=== PATIENT | female | born 1975 | race Caucasian/White ===

== ENCOUNTER 2019-02-28 09:45 | Outpatient (RCR) | payer OTHER, SELFPAY ==
--- NOTE | 2019-01-11 15:22 | PT.OIE ---
Current Diagnoses Pain in unspecified hip (01/10/19) Past Medical History (Last Updated 11/18/18 @ 16:55 by Ros Chase MD) Fibromyalgia (Chronic) GERD (gastroesophageal reflux disease) (Chronic) Past Surgical History (Last Updated 11/18/18 @ 16:55 by Ros Chase MD) History of third molar tooth extraction (Resolved) History of tonsillectomy (Resolved) Provider Visit Care Team Role Provider Type ALY Hector Primary Care Provider Advanced Manager Planning Specialty: Family Practice Address: [address] [place] [address] [place], [address] Email: [email or web address] ALY Bowser Attending Provider Advanced Manager Planning Specialty: Medical Address: [address] [place] [address], [id number] Email: Physical Therapy Initial Evaluation PT-OP-A Visit Information Start: 01/11/19 14:42 Freq: Status: Active Protocol: Document 01/10/19 14:30 [facility] (Rec: 01/11/19 15:17 [facility] [email or web address]) Out-Patient Physical Therapy Visit Information Visit Information Visit Type Initial Evaluation Visit Note 43 year old female with c/o a new onset of R lateral hip pain that began while running in July. Visit Start Time 14:30 Visit Stop Time 15:15 Total Visit Minutes 45 Visit Number 1 Evaluation Information Evaluation Date 01/10/19 PT-OP-B Current Condition Start: 01/11/19 14:42 Freq: Status: Active Protocol: Document 01/10/19 14:30 [facility] (Rec: 01/11/19 15:17 [facility] [email or web address]) Current Condition History of Current Condition Onset Date July 2018 Current Complaints Right sided pain in the lateral hip and pelvis rated 5 /10 History of Current Condition 43 year old female who started having right sided hip and lateral pelvis pain [place]. She reports running the full trail and then experiencing pain following. She then ran again the following week and it reaggravated her symptoms. She has experienced pain since this time. Her pain is rated 5/10 and it hurts to even lay on her right side. The pain doesn't ever go completely away and now even walking aggravates her symptoms Treatment Goals Patient/Caregiver Goals to decrease pain to be able to run again and walk without pain Current Functional Impairments (Reported) Functional Limitations- Recreation/ quite a bit of difficulty with Hobbies runnin, making sharp turns, hopping, rolloing over in bed moderate difficulty with walking a mile and performing heavy activities around her home PT-OP-F Manual Assessment Start: 01/11/19 14:42 Freq: Status: Active Protocol: Document 01/10/19 14:30 [facility] (Rec: 01/11/19 15:17 [facility] [email or web address]) Manual Assessments Soft Tissue Assessment Soft Tissue Mobility Assessment myofascial tightness in the right ITB and quadriceps on the right. PT-OP-J Posture/Palpation/Skin Start: 01/11/19 14:42 Freq: Status: Active Protocol: Document 01/10/19 14:30 [facility] (Rec: 01/11/19 15:17 [facility] [email or web address]) Posture Evaluation Position Standing Evaluation View Posterior Pelvis Posture (L) Iliac Crest Superior Weight Distribution Weight Shifted Left Palpation Assessment Location Three Palpation Location Right quadracep proximal attachment Palpation Findings Soft Tissue Tightness Muscle Guarding Tenderness Two Palpation Location R ITB Palpation Findings Soft Tissue Tightness Palpation Details Myofascial restrictions in the right ITB One Palpation Location right Gluteus medius Palpation Findings Tenderness Palpation Details reproduction of pain with palpation over the right gluteus medius PT-OP-K Range of Motion Start: 01/11/19 14:42 Freq: Status: Active Protocol: Document 01/10/19 14:30 [facility] (Rec: 01/11/19 15:17 [facility] [email or web address]) Hip Goniometric Range of Motion Hip Left Hip ROM WFL No Flexion w/Knee Flexed 110 Straight Leg Raise 60 Right Hip ROM WFL No Flexion w/Knee Flexed 95 Straight Leg Raise 55 Hip ROM Limitations Hip ROM Limitations Soft Tissue Tightness Comments right sided posterior hip capsule tightness, ITB tightness PT-OP-L Special Tests Start: 01/11/19 14:42 Freq: Status: Active Protocol: Document 01/10/19 14:30 [facility] (Rec: 01/11/19 15:17 [facility] [email or web address]) Special Tests Hip Special Tests Trendelenberg Test Results + trendelenberg on the right Comments difficulty with single leg stance on the right, increased pain and decreased balance PT-OP-M Strength Start: 01/11/19 14:42 Freq: Status: Active Protocol: Document 01/10/19 14:30 [facility] (Rec: 01/11/19 15:17 [facility] [email or web address]) Hip Strength Hip Manual Muscle Testing Left Extension (S1) 4+ Good+ Abduction 4 Good External Rotation 4 Good Comments weakness in the gluteus medius on the right Right Extension (S1) 4 Good Abduction 2+ Poor+ External Rotation 3 Fair PT-OP-Q Treatments Start: 01/11/19 14:42 Freq: Status: Active Protocol: Document 01/10/19 14:30 [facility] (Rec: 01/11/19 15:17 [facility] [email or web address]) Therapeutic Exercises Other Exercises 3 Other Exercise Name clam shell Side bilateral Equipment Used 2 x 10 2 Other Exercise Name standing and sidelying quad stretch Side bilateral Reps/Minutes 1-2 min each 1 Other Exercise Name supine ITB stretch with strap Side bilateral Reps/Minutes 1 min each x 2 Manual Therapy Treatment Soft Tissue Mobilization 1 Body Location right ITB Mobilization Type Myofascial Release Intensity/Depth Superficial Body Position Sidelying Comments pt educated in self massage with the stick self massage roller PT-OP-T Assessment and Plan Start: 01/11/19 14:42 Freq: Status: Active Protocol: Document 01/10/19 14:30 [facility] (Rec: 01/11/19 15:17 [facility] [email or web address]) Physical Therapy Assessment Rehab Potential Rehabilitation Potential Excellent Evaluation Complexity Number of Personal Factors/Comorbidities 0 Number of Body Systems Impaired 1-2 Clinical Presentation at Evaluation Stable Impairments Impairments Activity Tolerance Balance Functional Activities Gait Pain ROM Soft Tissue Mobility Strength Goals Four Impairment limited hip ROM into flexion, SLR Usp Goal (LTG) Improve mobility of the posterior hip capsule to improve hip flexion and improve SLR ROM to 70 degrees or better LTG Duration 8 weeks Three Impairment ITB and quad tightness on the right + BRYAN test Pack Worker Goal (LTG) Reduce tightness and over dominace of the ITB on the right with manual therapy techniques and home stretches. LTG Duration 8 weeks Two Impairment Right hip gluteus medius and hip ER weakness Usp Goal (LTG) Improve right gluteus medius and ER strength to 5/5 and Karla is able to balance in SLS without a hip drop on the right LTG Duration 8 weeks One Impairment right lateral hip pain rated 5 /10 worse with walking, unable to run Short Term Goal (STG) Reduce right hip pain at rest to 2-3 /10 STG Duration 4 weeks Usp Goal (LTG) Karla is able to return to running without a increase in hip pain LTG Duration 8 weeks Assessment Summary Assessment Karla is a 43 year old female who presents to PT today with right sided lateral hip/pelvis pain that began when she returned to running in July. She hadn't been running much before this but wanted to get back into shape. [place] and felt pain for several days following. She then did the trail again the next week and pain returned but has stayed with her. It now bothers her to walk and she rates her pain as 5/10. She reports her pain never completely goes away. It hurts to lay on her right side in bed at night. With examination today she is tender over the gluteus medius on the right lateral pelvis. She is weak in the gluteus medius and has a + trendelenburg on the right making single leg stance difficult to perform. Her ITB is over dominant and tight. There is posterior hip capsule tightness on the right and hip flexion is limited. She has pain with full ER and pigeon pose in yoga. I began today MFR over the ITB and Karla was instructed in a home stretching program for the ITB and quadriceps. Treatment will progress to gluteus medius strengthening, balance training on SLS and a return to running program. Karla is a good candidate for PT. Physical Therapy Plan Frequency and Duration Frequency of Treatment 2x/Week Duration of Treatment 8 weeks Plan of Care Start Date 01/10/19 Plan of Care End Date 03/07/19 Therapeutic Interventions Therapeutic Interventions Home Exercise Program Joint Mobilizations Manual Therapy Neuromuscular Re-education Soft Tissue Mobilization Therapeutic Exercises Modalities Cold Pack/Ice Massage Next Visit Focus/Plan Next Note Type Treatment Note Next Visit Plan continue to work on ITB release, progress lateral hip strength
--- NOTE | 2019-01-11 15:23 | PT.OPPOC ---
Current Diagnoses Pain in unspecified hip (01/10/19) Provider Visit Care Team Role Provider Type ALY Hector Primary Care Provider Advanced Elevator Conductor Specialty: Family Practice Address: [address] [facility] [facility], [place], [address] Email: [email or web address] ALY Bowser Attending Provider Advanced Elevator Conductor Specialty: Medical Address: [address] [place] [address] [place], [address] Email: Plan Of Care PT-OP-T Assessment and Plan Start: 01/11/19 14:42 Freq: Status: Active Protocol: Document 01/10/19 14:30 [facility] (Rec: 01/11/19 15:17 [facility] [email or web address]) Physical Therapy Assessment Rehab Potential Rehabilitation Potential Excellent Evaluation Complexity Number of Personal Factors/Comorbidities 0 Number of Body Systems Impaired 1-2 Clinical Presentation at Evaluation Stable Impairments Impairments Activity Tolerance Balance Functional Activities Gait Pain ROM Soft Tissue Mobility Strength Goals Four Impairment limited hip ROM into flexion, SLR Sample Processor Goal (LTG) Improve mobility of the posterior hip capsule to improve hip flexion and improve SLR ROM to 70 degrees or better LTG Duration 8 weeks Three Impairment ITB and quad tightness on the right + BRYAN test Fpc Goal (LTG) Reduce tightness and overdominace of the ITB on the right with manual therapy techniques and home stretches. LTG Duration 8 weeks Two Impairment Right hip gluteus medius and hip ER weakness Sample Processor Goal (LTG) Improve right gluteus medius and ER strength to 5/5 and Karla is able to balance in SLS without a hip drop on the right LTG Duration 8 weeks One Impairment right lateral hip pain rated 5 /10 worse with walking, unable to run Short Term Goal (STG) Reduce right hip pain at rest to 2-3 /10 STG Duration 4 weeks Fpc Goal (LTG) Karla is able to return to running without a increase in hip pain LTG Duration 8 weeks Assessment Summary Assessment Karla is a 43 year old female who presents to PT today with right sided lateral hip/pelvis pain that began when she returned to running in July. She hadn't been running much before this but wanted to get back into shape. She ran the length of the [employer] train and felt pain for several days following. She then did the trail again the next week and pain returned but has stayed with her. It now bothers her to walk and she rates her pain as 5/10. She reports her pain never completely goes away. It hurts to lay on her right side in bed at night. With examination today she is tender over the gluteus medius on the right lateral pelvis. She is weak in the gluteus medius and has a + trendelenburg on the right making single leg stance difficult to perform. Her ITB is overdominant and tight. There is posterior hip capsule tightness on the right and hip flexion is limited. She has pain with full ER and pigeon pose in yoga. I began today MFR over the ITB and Karla was instructed in a home stretching program for the ITB and quadriceps. Treatment will progress to gluteus medius strengthening, balance training on SLS and a return to running program. Karla is a good candidate for PT. Physical Therapy Plan Frequency and Duration Frequency of Treatment 2x/Week Duration of Treatment 8 weeks Plan of Care Start Date 01/10/19 Plan of Care End Date 03/07/19 Therapeutic Interventions Therapeutic Interventions Home Exercise Program Joint Mobilizations Manual Therapy Neuromuscular Re-education Soft Tissue Mobilization Therapeutic Exercises Modalities Cold Pack/Ice Massage Next Visit Focus/Plan Next Note Type Treatment Note Next Visit Plan continue to work on ITB release, progress lateral hip strength Plan of Care Dates Plan of Care Start Date 01/10/19 Plan of Care End Date 03/07/19 Please Sign and Return: I have reviewed this Plan of Care and certify that the skilled therapy services above are required to meet the patient?s needs. Physician Signature Date Printed Name and Credentials Clinical Instructor Signature Printed Name and Credentials
--- NOTE | 2019-01-16 06:55 | PT.OTN ---
Current Diagnoses Pain in unspecified hip (01/12/19) Physical Therapy Treatment Note PT-OP-A Visit Information Start: 01/11/19 14:42 Freq: Status: Active Protocol: Document 01/12/19 14:30 [facility] (Rec: 01/16/19 06:53 [facility] [email or web address]) Out-Patient Physical Therapy Visit Information Visit Information Visit Type Treatment Note Visit Start Time 14:30 Visit Stop Time 15:15 Total Visit Minutes 45 Visit Number 2 PT-OP-B Current Condition Start: 01/11/19 14:42 Freq: Status: Active Protocol: Document 01/10/19 14:30 [facility] (Rec: 01/11/19 15:17 [facility] [email or web address]) Current Condition History of Current Condition Onset Date July 2018 Current Complaints Right sided pain in the lateral hip and pelvis rated 5 /10 History of Current Condition 43 year old female who started having right sided hip and lateral pelvis pain following a fun on the [employer] in July 2018. She reports running the full trail and then experiencing pain following. She then ran again the following week and it reaggravated her symptoms. She has experienced pain since this time. Her pain is rated 5/10 and it hurts to even lay on her right side. The pain doesn't ever go completely away and now even walking aggravates her symptoms Treatment Goals Patient/Caregiver Goals to decrease pain to be able to run again and walk without pain Current Functional Impairments (Reported) Functional Limitations- Recreation/ quite a bit of difficulty with Hobbies runnin, making sharp turns, hopping, rolloing over in bed moderate difficulty with walking a mile and performing heavy activities around her home PT-OP-C Subjective Start: 01/11/19 14:42 Freq: Status: Active Protocol: Document 01/12/19 14:30 [facility] (Rec: 01/16/19 06:53 [facility] [email or web address]) OP-PT Subjective Patient Comments Patient Comments Karla reports she was sore following her last visit PT-OP-F Manual Assessment Start: 01/11/19 14:42 Freq: Status: Active Protocol: Document 01/10/19 14:30 [facility] (Rec: 01/11/19 15:17 [facility] [email or web address]) Manual Assessments Soft Tissue Assessment Soft Tissue Mobility Assessment myofascial tightness in the right ITB and quadriceps on the right. PT-OP-J Posture/Palpation/Skin Start: 01/11/19 14:42 Freq: Status: Active Protocol: Document 01/10/19 14:30 [facility] (Rec: 01/11/19 15:17 [facility] [email or web address]) Posture Evaluation Position Standing Evaluation View Posterior Pelvis Posture (L) Iliac Crest Superior Weight Distribution Weight Shifted Left Palpation Assessment Location Three Palpation Location Right quadracep proximal attachment Palpation Findings Soft Tissue Tightness Muscle Guarding Tenderness Two Palpation Location R ITB Palpation Findings Soft Tissue Tightness Palpation Details Myofascial restrictions in the right ITB One Palpation Location right Gluteus medius Palpation Findings Tenderness Palpation Details reproduction of pain with palpation over the right gluteus medius PT-OP-K Range of Motion Start: 01/11/19 14:42 Freq: Status: Active Protocol: Document 01/10/19 14:30 [facility] (Rec: 01/11/19 15:17 [facility] [email or web address]) Hip Goniometric Range of Motion Hip Left Hip ROM WFL No Flexion w/Knee Flexed 110 Straight Leg Raise 60 Right Hip ROM WFL No Flexion w/Knee Flexed 95 Straight Leg Raise 55 Hip ROM Limitations Hip ROM Limitations Soft Tissue Tightness Comments right sided posterior hip capsule tightness, ITB tightness PT-OP-L Special Tests Start: 01/11/19 14:42 Freq: Status: Active Protocol: Document 01/10/19 14:30 [facility] (Rec: 01/11/19 15:17 [facility] [email or web address]) Special Tests Hip Special Tests Trendelenberg Test Results + trendelenberg on the right Comments difficulty with single leg stance on the right, increased pain and decreased balance PT-OP-M Strength Start: 01/11/19 14:42 Freq: Status: Active Protocol: Document 01/10/19 14:30 [facility] (Rec: 01/11/19 15:17 [facility] [email or web address]) Hip Strength Hip Manual Muscle Testing Left Extension (S1) 4+ Good+ Abduction 4 Good External Rotation 4 Good Comments weakness in the gluteus medius on the right Right Extension (S1) 4 Good Abduction 2+ Poor+ External Rotation 3 Fair PT-OP-Q Treatments Start: 01/11/19 14:42 Freq: Status: Active Protocol: Document 01/12/19 14:30 [facility] (Rec: 01/16/19 06:53 [facility] [email or web address]) Manual Therapy Treatment Soft Tissue Mobilization 2 Body Location gluteus medius release on the right 1 Body Location right ITB Mobilization Type Myofascial Release Intensity/Depth Superficial Body Position Sidelying Comments pt educated in self massage with the stick self massage roller, worked on both distal and proximal attachments Taping 1 Body Location star taping pattern over the right hip PT-OP-R Modalities Start: 01/16/19 06:54 Freq: Status: Active Protocol: Document 01/12/19 14:30 [facility] (Rec: 01/16/19 06:55 [facility] [email or web address]) Hot Pack/Cold Pack Treatment Ice Massage Location right lateral hip Patient Position Sidelying Treatment Duration (minutes) 5 Patient Tolerance Good Ultrasound Therapy Treatment Right Hip Treatment Duration (minutes) 8 Patient Position Sidelying Coupling Medium Ultrasound Gel Applicator Size (cm2) 5 Frequency Setting (mHz) 1 Mode Setting Continuous Duty Cycle 100% Intensity Setting (w/cm2) 1.5 Comments over the ITB proximal attachment PT-OP-T Assessment and Plan Start: 01/11/19 14:42 Freq: Status: Active Protocol: Document 01/12/19 14:30 [facility] (Rec: 01/16/19 06:53 [facility] [email or web address]) Physical Therapy Assessment Assessment Summary Assessment advised Karla not to stand with hip popped out on the right. Did do a trial of star tape over the right gluteus medius to help with inflammation and pain. Pt will be gone on vacation. Advised her to continue icing and doing her stretches Physical Therapy Plan Frequency and Duration Frequency of Treatment 2x/Week Duration of Treatment 8 weeks Plan of Care Start Date 01/10/19 Plan of Care End Date 03/07/19 Next Visit Focus/Plan Next Note Type Treatment Note Next Visit Plan add to hip strengthening if pt is able , reassess tape response
--- NOTE | 2019-02-13 07:52 | PT.OTN ---
Current Diagnoses Pain in unspecified hip (02/08/19) Physical Therapy Treatment Note PT-OP-A Visit Information Start: 01/11/19 14:42 Freq: Status: Active Protocol: Document 02/08/19 13:00 [facility] (Rec: 02/13/19 07:52 [facility] [email or web address]) Out-Patient Physical Therapy Visit Information Visit Information Visit Type Treatment Note Visit Start Time 13:00 Visit Stop Time 13:45 Total Visit Minutes 45 Visit Number 3 PT-OP-B Current Condition Start: 01/11/19 14:42 Freq: Status: Active Protocol: Document 01/10/19 14:30 [facility] (Rec: 01/11/19 15:17 [facility] [email or web address]) Current Condition History of Current Condition Onset Date July 2018 Current Complaints Right sided pain in the lateral hip and pelvis rated 5 /10 History of Current Condition 43 year old female who started having right sided hip and lateral pelvis pain following a [place] on the [place] in July [place]. She reports running the full trail and then experiencing pain following. She then ran again the following week and it reaggravated her symptoms. She has experienced pain since this time. Her pain is rated 5/10 and it hurts to even lay on her right side. The pain doesn't ever go completely away and now even walking aggravates her symptoms Treatment Goals Patient/Caregiver Goals to decrease pain to be able to run again and walk without pain Current Functional Impairments (Reported) Functional Limitations- Recreation/ quite a bit of difficulty with Hobbies runnin, making sharp turns, hopping, rolloing over in bed moderate difficulty with walking a mile and performing heavy activities around her home PT-OP-C Subjective Start: 01/11/19 14:42 Freq: Status: Active Protocol: Document 02/08/19 13:00 [facility] (Rec: 02/13/19 07:52 [facility] [email or web address]) OP-PT Subjective Patient Comments Patient Comments Karla reports her hip is doing a little bit better but she is still not feeling that she could run. Driving for long distances increases her symptoms. She has had massage and she feels this has helped PT-OP-F Manual Assessment Start: 01/11/19 14:42 Freq: Status: Active Protocol: Document 01/10/19 14:30 [facility] (Rec: 01/11/19 15:17 [facility] [email or web address]) Manual Assessments Soft Tissue Assessment Soft Tissue Mobility Assessment myofascial tightness in the right ITB and quadriceps on the right. PT-OP-J Posture/Palpation/Skin Start: 01/11/19 14:42 Freq: Status: Active Protocol: Document 01/10/19 14:30 [facility] (Rec: 01/11/19 15:17 [facility] [email or web address]) Posture Evaluation Position Standing Evaluation View Posterior Pelvis Posture (L) Iliac Crest Superior Weight Distribution Weight Shifted Left Palpation Assessment Location Three Palpation Location Right quadracep proximal attachment Palpation Findings Soft Tissue Tightness,Muscle Guarding,Tenderness Two Palpation Location R ITB Palpation Findings Soft Tissue Tightness Palpation Details Myofascial restrictions in the right ITB One Palpation Location right Gluteus medius Palpation Findings Tenderness Palpation Details reproduction of pain with palpation over the right gluteus medius PT-OP-K Range of Motion Start: 01/11/19 14:42 Freq: Status: Active Protocol: Document 01/10/19 14:30 [facility] (Rec: 01/11/19 15:17 [facility] [email or web address]) Hip Goniometric Range of Motion Hip Left Hip ROM WFL No Flexion w/Knee Flexed 110 Straight Leg Raise 60 Right Hip ROM WFL No Flexion w/Knee Flexed 95 Straight Leg Raise 55 Hip ROM Limitations Hip ROM Limitations Soft Tissue Tightness Comments right sided posterior hip capsule tightness, ITB tightness PT-OP-L Special Tests Start: 01/11/19 14:42 Freq: Status: Active Protocol: Document 01/10/19 14:30 [facility] (Rec: 01/11/19 15:17 [facility] [email or web address]) Special Tests Hip Special Tests Trendelenberg Test Results + trendelenberg on the right Comments difficulty with single leg stance on the right, increased pain and decreased balance PT-OP-M Strength Start: 01/11/19 14:42 Freq: Status: Active Protocol: Document 01/10/19 14:30 [facility] (Rec: 01/11/19 15:17 [facility] [email or web address]) Hip Strength Hip Manual Muscle Testing Left Extension (S1) 4+ Good+ Abduction 4 Good External Rotation 4 Good Comments weakness in the gluteus medius on the right Right Extension (S1) 4 Good Abduction 2+ Poor+ External Rotation 3 Fair PT-OP-Q Treatments Start: 01/11/19 14:42 Freq: Status: Active Protocol: Document 02/08/19 13:00 [facility] (Rec: 02/13/19 07:52 [facility] [email or web address]) Therapeutic Exercises Supine Exercises 1 Supine Exercise Name piriformis stretch Sidelying Exercises 2 Sidelying Exercise Name sidelying hip circles Reps/Minutes 2 x 10 reps 1 Sidelying Exercise Name sidelying leg lifts Reps/Minutes 2 x 10 Standing Exercises 1 Standing Exercise Name standing hip hikes Other Exercises 3 Other Exercise Name clam shell Side bilateral Equipment Used 2 x 10 2 Other Exercise Name standing and sidelying quad stretch Side bilateral Reps/Minutes 1-2 min each 1 Other Exercise Name supine ITB stretch with strap Side bilateral Reps/Minutes 1 min each x 2 Manual Therapy Treatment Soft Tissue Mobilization 2 Body Location gluteus medius release on the right 1 Body Location right ITB Mobilization Type Myofascial Release Intensity/Depth Superficial Body Position Sidelying Comments pt educated in self massage with the stick self massage roller, worked on both distal and proximal attachments Self-Care/Home Management Treatment Education Patient Education Home Exercise Program,Pain Management Other Education pt shown self stretching with foam roll and with the rollar for her ITB PT-OP-R Modalities Start: 01/16/19 06:54 Freq: Status: Active Protocol: Document 01/12/19 14:30 [facility] (Rec: 01/16/19 06:55 [facility] [email or web address]) Hot Pack/Cold Pack Treatment Ice Massage Location right lateral hip Patient Position Sidelying Treatment Duration (minutes) 5 Patient Tolerance Good Ultrasound Therapy Treatment Right Hip Treatment Duration (minutes) 8 Patient Position Sidelying Coupling Medium Ultrasound Gel Applicator Size (cm2) 5 Frequency Setting (mHz) 1 Mode Setting Continuous Duty Cycle 100% Intensity Setting (w/cm2) 1.5 Comments over the ITB proximal attachment PT-OP-T Assessment and Plan Start: 01/11/19 14:42 Freq: Status: Active Protocol: Document 02/08/19 13:00 [facility] (Rec: 02/13/19 07:52 [facility] [email or web address]) Physical Therapy Assessment Assessment Summary Assessment improved gluteus medius activation with decreased pain . Continue to work on the ITB and progress exercises, squats, single leg squats, side steps with theraband Physical Therapy Plan Frequency and Duration Frequency of Treatment 2x/Week Duration of Treatment 8 weeks Plan of Care Start Date 01/10/19 Plan of Care End Date 09/24/19 Therapeutic Interventions Therapeutic Interventions Home Exercise Program,Joint Mobilizations,Manual Therapy, Neuromuscular Re-education, Soft Tissue Mobilization, Therapeutic Exercises Modalities Cold Pack/Ice Massage Next Visit Focus/Plan Next Note Type Treatment Note Next Visit Plan add in squats and side steps, single leg squats for running. Continue with MFR over the lateral hip and ITB
--- NOTE | 2019-02-21 17:23 | PT.OTN ---
Current Diagnoses Pain in unspecified hip (02/21/19) Physical Therapy Treatment Note PT-OP-A Visit Information Start: 01/11/19 14:42 Freq: Status: Active Protocol: Document 02/21/19 17:19 [facility] (Rec: 02/21/19 17:23 [facility] [email or web address]) Out-Patient Physical Therapy Visit Information Visit Information Visit Type Treatment Note Visit Start Time 13:45 Visit Stop Time 14:30 Total Visit Minutes 45 Visit Number 4 PT-OP-B Current Condition Start: 01/11/19 14:42 Freq: Status: Active Protocol: Document 01/10/19 14:30 [facility] (Rec: 01/11/19 15:17 [facility] [email or web address]) Current Condition History of Current Condition Onset Date July 2018 Current Complaints Right sided pain in the lateral hip and pelvis rated 5 /10 History of Current Condition 43 year old female who started having right sided hip and lateral pelvis pain following a fun on the [employer] in July 2018. She reports running the full trail and then experiencing pain following. She then ran again the following week and it reaggravated her symptoms. She has experienced pain since this time. Her pain is rated 5/10 and it hurts to even lay on her right side. The pain doesn't ever go completely away and now even walking aggravates her symptoms Treatment Goals Patient/Caregiver Goals to decrease pain to be able to run again and walk without pain Current Functional Impairments (Reported) Functional Limitations- Recreation/ quite a bit of difficulty with Hobbies runnin, making sharp turns, hopping, rolloing over in bed moderate difficulty with walking a mile and performing heavy activities around her home PT-OP-C Subjective Start: 01/11/19 14:42 Freq: Status: Active Protocol: Document 02/21/19 17:19 [facility] (Rec: 02/21/19 17:23 [facility] [email or web address]) OP-PT Subjective Patient Comments Patient Comments Karla reports her hip is doing better but she felt like last visit gave her plantar fascial symptoms. PT-OP-F Manual Assessment Start: 01/11/19 14:42 Freq: Status: Active Protocol: Document 01/10/19 14:30 [facility] (Rec: 01/11/19 15:17 [facility] [email or web address]) Manual Assessments Soft Tissue Assessment Soft Tissue Mobility Assessment myofascial tightness in the right ITB and quadriceps on the right. PT-OP-J Posture/Palpation/Skin Start: 01/11/19 14:42 Freq: Status: Active Protocol: Document 01/10/19 14:30 [facility] (Rec: 01/11/19 15:17 [facility] [email or web address]) Posture Evaluation Position Standing Evaluation View Posterior Pelvis Posture (L) Iliac Crest Superior Weight Distribution Weight Shifted Left Palpation Assessment Location Three Palpation Location Right quadracep proximal attachment Palpation Findings Soft Tissue Tightness,Muscle Guarding,Tenderness Two Palpation Location R ITB Palpation Findings Soft Tissue Tightness Palpation Details Myofascial restrictions in the right ITB One Palpation Location right Gluteus medius Palpation Findings Tenderness Palpation Details reproduction of pain with palpation over the right gluteus medius PT-OP-K Range of Motion Start: 01/11/19 14:42 Freq: Status: Active Protocol: Document 01/10/19 14:30 [facility] (Rec: 01/11/19 15:17 [facility] [email or web address]) Hip Goniometric Range of Motion Hip Left Hip ROM WFL No Flexion w/Knee Flexed 110 Straight Leg Raise 60 Right Hip ROM WFL No Flexion w/Knee Flexed 95 Straight Leg Raise 55 Hip ROM Limitations Hip ROM Limitations Soft Tissue Tightness Comments right sided posterior hip capsule tightness, ITB tightness PT-OP-L Special Tests Start: 01/11/19 14:42 Freq: Status: Active Protocol: Document 01/10/19 14:30 [facility] (Rec: 01/11/19 15:17 [facility] [email or web address]) Special Tests Hip Special Tests Trendelenberg Test Results + trendelenberg on the right Comments difficulty with single leg stance on the right, increased pain and decreased balance PT-OP-M Strength Start: 01/11/19 14:42 Freq: Status: Active Protocol: Document 01/10/19 14:30 [facility] (Rec: 01/11/19 15:17 [facility] [email or web address]) Hip Strength Hip Manual Muscle Testing Left Extension (S1) 4+ Good+ Abduction 4 Good External Rotation 4 Good Comments weakness in the gluteus medius on the right Right Extension (S1) 4 Good Abduction 2+ Poor+ External Rotation 3 Fair PT-OP-Q Treatments Start: 01/11/19 14:42 Freq: Status: Active Protocol: Document 02/21/19 17:19 [facility] (Rec: 02/21/19 17:23 [facility] [email or web address]) Therapeutic Exercises Supine Exercises 2 Supine Exercise Name hamstring and ITB stretch 1 Supine Exercise Name piriformis stretch Sidelying Exercises 3 Sidelying Exercise Name clam shells 2 Sidelying Exercise Name sidelying hip circles Reps/Minutes 2 x 10 reps 1 Sidelying Exercise Name sidelying leg lifts Reps/Minutes 2 x 10 Manual Therapy Treatment Soft Tissue Mobilization 2 Body Location gluteus medius release on the right 1 Body Location right ITB Mobilization Type Myofascial Release Intensity/Depth Superficial Body Position Sidelying Comments pt educated in self massage with the stick self massage roller, worked on both distal and proximal attachments PT-OP-R Modalities Start: 01/16/19 06:54 Freq: Status: Active Protocol: Document 01/12/19 14:30 [facility] (Rec: 01/16/19 06:55 [facility] [email or web address]) Hot Pack/Cold Pack Treatment Ice Massage Location right lateral hip Patient Position Sidelying Treatment Duration (minutes) 5 Patient Tolerance Good Ultrasound Therapy Treatment Right Hip Treatment Duration (minutes) 8 Patient Position Sidelying Coupling Medium Ultrasound Gel Applicator Size (cm2) 5 Frequency Setting (mHz) 1 Mode Setting Continuous Duty Cycle 100% Intensity Setting (w/cm2) 1.5 Comments over the ITB proximal attachment PT-OP-T Assessment and Plan Start: 01/11/19 14:42 Freq: Status: Active Protocol: Document 02/21/19 17:19 [facility] (Rec: 02/21/19 17:23 [facility] [email or web address]) Physical Therapy Assessment Assessment Summary Assessment Held off on any standing exercises today as Karla did not have any other shoes than her work high heels. I asked her to bring her tennis shoes next visit. She would benefit from progressing to squats and single leg squats Physical Therapy Plan Frequency and Duration Frequency of Treatment 2x/Week Duration of Treatment 8 weeks Plan of Care Start Date 01/10/19 Plan of Care End Date 03/07/19 Next Visit Focus/Plan Next Note Type Treatment Note Next Visit Plan add in squats and side steps, single leg squats for running. Continue with MFR over the lateral hip and ITB
--- NOTE | 2019-02-28 17:46 | PT.OTN ---
Current Diagnoses Pain in unspecified hip (02/28/19) Physical Therapy Treatment Note PT-OP-A Visit Information Start: 01/11/19 14:42 Freq: Status: Active Protocol: Document 02/28/19 09:45 [facility] (Rec: 02/28/19 17:46 [facility] [email or web address]) Out-Patient Physical Therapy Visit Information Visit Information Visit Type Treatment Note Visit Start Time 09:45 Visit Stop Time 10:30 Total Visit Minutes 45 Visit Number 5 PT-OP-B Current Condition Start: 01/11/19 14:42 Freq: Status: Active Protocol: Document 01/10/19 14:30 [facility] (Rec: 01/11/19 15:17 [facility] [email or web address]) Current Condition History of Current Condition Onset Date July 2018 Current Complaints Right sided pain in the lateral hip and pelvis rated 5 /10 History of Current Condition 43 year old female who started having right sided hip and lateral pelvis pain following [place] [employer] in [place]. She reports running the full trail and then experiencing pain following. She then ran again the following week and it reaggravated her symptoms. She has experienced pain since this time. Her pain is rated 5/10 and it hurts to even lay on her right side. The pain doesn't ever go completely away and now even walking aggravates her symptoms Treatment Goals Patient/Caregiver Goals to decrease pain to be able to run again and walk without pain Current Functional Impairments (Reported) Functional Limitations- Recreation/ quite a bit of difficulty with Hobbies runnin, making sharp turns, hopping, rolloing over in bed moderate difficulty with walking a mile and performing heavy activities around her home PT-OP-C Subjective Start: 01/11/19 14:42 Freq: Status: Active Protocol: Document 02/28/19 09:45 [facility] (Rec: 02/28/19 17:46 [facility] [email or web address]) OP-PT Subjective Patient Comments Patient Comments pt reports her plantar fascia has calmed down some. She is feeling a lot of pain when doing the ITB stretches PT-OP-F Manual Assessment Start: 01/11/19 14:42 Freq: Status: Active Protocol: Document 01/10/19 14:30 [facility] (Rec: 01/11/19 15:17 [facility] [email or web address]) Manual Assessments Soft Tissue Assessment Soft Tissue Mobility Assessment myofascial tightness in the right ITB and quadriceps on the right. PT-OP-J Posture/Palpation/Skin Start: 01/11/19 14:42 Freq: Status: Active Protocol: Document 01/10/19 14:30 [facility] (Rec: 01/11/19 15:17 [facility] [email or web address]) Posture Evaluation Position Standing Evaluation View Posterior Pelvis Posture (L) Iliac Crest Superior Weight Distribution Weight Shifted Left Palpation Assessment Location Three Palpation Location Right quadracep proximal attachment Palpation Findings Soft Tissue Tightness,Muscle Guarding,Tenderness Two Palpation Location R ITB Palpation Findings Soft Tissue Tightness Palpation Details Myofascial restrictions in the right ITB One Palpation Location right Gluteus medius Palpation Findings Tenderness Palpation Details reproduction of pain with palpation over the right gluteus medius PT-OP-K Range of Motion Start: 01/11/19 14:42 Freq: Status: Active Protocol: Document 01/10/19 14:30 [facility] (Rec: 01/11/19 15:17 [facility] [email or web address]) Hip Goniometric Range of Motion Hip Left Hip ROM WFL No Flexion w/Knee Flexed 110 Straight Leg Raise 60 Right Hip ROM WFL No Flexion w/Knee Flexed 95 Straight Leg Raise 55 Hip ROM Limitations Hip ROM Limitations Soft Tissue Tightness Comments right sided posterior hip capsule tightness, ITB tightness PT-OP-L Special Tests Start: 01/11/19 14:42 Freq: Status: Active Protocol: Document 01/10/19 14:30 [facility] (Rec: 01/11/19 15:17 [facility] [email or web address]) Special Tests Hip Special Tests Trendelenberg Test Results + trendelenberg on the right Comments difficulty with single leg stance on the right, increased pain and decreased balance PT-OP-M Strength Start: 01/11/19 14:42 Freq: Status: Active Protocol: Document 01/10/19 14:30 [facility] (Rec: 01/11/19 15:17 [facility] [email or web address]) Hip Strength Hip Manual Muscle Testing Left Extension (S1) 4+ Good+ Abduction 4 Good External Rotation 4 Good Comments weakness in the gluteus medius on the right Right Extension (S1) 4 Good Abduction 2+ Poor+ External Rotation 3 Fair PT-OP-Q Treatments Start: 01/11/19 14:42 Freq: Status: Active Protocol: Document 02/28/19 09:45 [facility] (Rec: 02/28/19 17:46 [facility] [email or web address]) Cardio Equipment Recumbent Elliptical ([employer]) Duration (Minutes) 5 Therapeutic Exercises Supine Exercises 2 Supine Exercise Name hamstring and ITB stretch 1 Supine Exercise Name piriformis stretch Standing Exercises 3 Standing Exercise Name dynamic hamstring stretch Reps/Minutes x 10 reps 2 Standing Exercise Name standing ITB stretch 1 Standing Exercise Name standing hip hikes Other Exercises 5 Other Exercise Name side steps with squat and theraband Reps/Minutes 2 laps 4 Other Exercise Name single leg squats Comments to the side and posterior 2 Other Exercise Name standing and sidelying quad stretch Side bilateral Reps/Minutes 1-2 min each Manual Therapy Treatment Soft Tissue Mobilization 2 Body Location gluteus medius release on the right 1 Body Location right ITB Mobilization Type Myofascial Release Intensity/Depth Superficial Body Position Sidelying Comments pt educated in self massage with the stick self massage roller, worked on both distal and proximal attachments PT-OP-R Modalities Start: 01/16/19 06:54 Freq: Status: Active Protocol: Document 01/12/19 14:30 [facility] (Rec: 01/16/19 06:55 [facility] [email or web address]) Hot Pack/Cold Pack Treatment Ice Massage Location right lateral hip Patient Position Sidelying Treatment Duration (minutes) 5 Patient Tolerance Good Ultrasound Therapy Treatment Right Hip Treatment Duration (minutes) 8 Patient Position Sidelying Coupling Medium Ultrasound Gel Applicator Size (cm2) 5 Frequency Setting (mHz) 1 Mode Setting Continuous Duty Cycle 100% Intensity Setting (w/cm2) 1.5 Comments over the ITB proximal attachment PT-OP-T Assessment and Plan Start: 01/11/19 14:42 Freq: Status: Active Protocol: Document 02/28/19 09:45 [facility] (Rec: 02/28/19 17:46 [facility] [email or web address]) Physical Therapy Assessment Assessment Summary Assessment Karla brought her tennis shoes today so we were able to work in the gym. I added in sdie steps with theraband and single leg squats for improved gluteus medius strength for running Physical Therapy Plan Frequency and Duration Frequency of Treatment 2x/Week Duration of Treatment 8 weeks Plan of Care Start Date 01/10/19 Plan of Care End Date 03/07/19 Therapeutic Interventions Therapeutic Interventions Home Exercise Program,Joint Mobilizations,Manual Therapy, Neuromuscular Re-education, Soft Tissue Mobilization, Therapeutic Exercises Modalities Cold Pack/Ice Massage Next Visit Focus/Plan Next Note Type Treatment Note Next Visit Plan review all exercises next visit as it will be Karla's last visit per her insurance
--- NOTE | 2019-06-15 15:11 | PT.OTN ---
Current Diagnoses Pain in unspecified hip (02/28/19) Physical Therapy Treatment Note PT-OP-A Visit Information Start: 01/11/19 14:42 Freq: Status: Active Protocol: Document 02/28/19 09:45 [facility] (Rec: 02/28/19 17:46 [facility] [email or web address]) Out-Patient Physical Therapy Visit Information Visit Information Visit Type Treatment Note Visit Start Time 09:45 Visit Stop Time 10:30 Total Visit Minutes 45 Visit Number 5 PT-OP-B Current Condition Start: 01/11/19 14:42 Freq: Status: Active Protocol: Document 01/10/19 14:30 [facility] (Rec: 01/11/19 15:17 [facility] [email or web address]) Current Condition History of Current Condition Onset Date July 2018 Current Complaints Right sided pain in the lateral hip and pelvis rated 5 /10 History of Current Condition 43 year old female who started having right sided hip and lateral pelvis pain following a fun on the [employer] in July 2018. She reports running the full trail and then experiencing pain following. She then ran again the following week and it reaggravated her symptoms. She has experienced pain since this time. Her pain is rated 5/10 and it hurts to even lay on her right side. The pain doesn't ever go completely away and now even walking aggravates her symptoms Treatment Goals Patient/Caregiver Goals to decrease pain to be able to run again and walk without pain Current Functional Impairments (Reported) Functional Limitations- Recreation/ quite a bit of difficulty with Hobbies runnin, making sharp turns, hopping, rolloing over in bed moderate difficulty with walking a mile and performing heavy activities around her home PT-OP-C Subjective Start: 01/11/19 14:42 Freq: Status: Active Protocol: Document 02/28/19 09:45 [facility] (Rec: 02/28/19 17:46 [facility] [email or web address]) OP-PT Subjective Patient Comments Patient Comments pt reports her plantar fascia has calmed down some. She is feeling a lot of pain when doing the ITB stretches PT-OP-F Manual Assessment Start: 01/11/19 14:42 Freq: Status: Active Protocol: Document 01/10/19 14:30 [facility] (Rec: 01/11/19 15:17 [facility] [email or web address]) Manual Assessments Soft Tissue Assessment Soft Tissue Mobility Assessment myofascial tightness in the right ITB and quadriceps on the right. PT-OP-J Posture/Palpation/Skin Start: 01/11/19 14:42 Freq: Status: Active Protocol: Document 01/10/19 14:30 [facility] (Rec: 01/11/19 15:17 [facility] [email or web address]) Posture Evaluation Position Standing Evaluation View Posterior Pelvis Posture (L) Iliac Crest Superior Weight Distribution Weight Shifted Left Palpation Assessment Location Three Palpation Location Right quadracep proximal attachment Palpation Findings Soft Tissue Tightness,Muscle Guarding,Tenderness Two Palpation Location R ITB Palpation Findings Soft Tissue Tightness Palpation Details Myofascial restrictions in the right ITB One Palpation Location right Gluteus medius Palpation Findings Tenderness Palpation Details reproduction of pain with palpation over the right gluteus medius PT-OP-K Range of Motion Start: 01/11/19 14:42 Freq: Status: Active Protocol: Document 01/10/19 14:30 [facility] (Rec: 01/11/19 15:17 [facility] [email or web address]) Hip Goniometric Range of Motion Hip Left Hip ROM WFL No Flexion w/Knee Flexed 110 Straight Leg Raise 60 Right Hip ROM WFL No Flexion w/Knee Flexed 95 Straight Leg Raise 55 Hip ROM Limitations Hip ROM Limitations Soft Tissue Tightness Comments right sided posterior hip capsule tightness, ITB tightness PT-OP-L Special Tests Start: 01/11/19 14:42 Freq: Status: Active Protocol: Document 01/10/19 14:30 [facility] (Rec: 01/11/19 15:17 [facility] [email or web address]) Special Tests Hip Special Tests Trendelenberg Test Results + trendelenberg on the right Comments difficulty with single leg stance on the right, increased pain and decreased balance PT-OP-M Strength Start: 01/11/19 14:42 Freq: Status: Active Protocol: Document 01/10/19 14:30 [facility] (Rec: 01/11/19 15:17 [facility] [email or web address]) Hip Strength Hip Manual Muscle Testing Left Extension (S1) 4+ Good+ Abduction 4 Good External Rotation 4 Good Comments weakness in the gluteus medius on the right Right Extension (S1) 4 Good Abduction 2+ Poor+ External Rotation 3 Fair PT-OP-Q Treatments Start: 01/11/19 14:42 Freq: Status: Active Protocol: Document 02/28/19 09:45 [facility] (Rec: 02/28/19 17:46 [facility] [email or web address]) Cardio Equipment Recumbent Elliptical (Biodex) Duration (Minutes) 5 Therapeutic Exercises Supine Exercises 2 Supine Exercise Name hamstring and ITB stretch 1 Supine Exercise Name piriformis stretch Standing Exercises 3 Standing Exercise Name dynamic hamstring stretch Reps/Minutes x 10 reps 2 Standing Exercise Name standing ITB stretch 1 Standing Exercise Name standing hip hikes Other Exercises 5 Other Exercise Name side steps with squat and theraband Reps/Minutes 2 laps 4 Other Exercise Name single leg squats Comments to the side and posterior 2 Other Exercise Name standing and sidelying quad stretch Side bilateral Reps/Minutes 1-2 min each Manual Therapy Treatment Soft Tissue Mobilization 2 Body Location gluteus medius release on the right 1 Body Location right ITB Mobilization Type Myofascial Release Intensity/Depth Superficial Body Position Sidelying Comments pt educated in self massage with the stick self massage roller, worked on both distal and proximal attachments PT-OP-R Modalities Start: 01/16/19 06:54 Freq: Status: Active Protocol: Document 01/12/19 14:30 [facility] (Rec: 01/16/19 06:55 [facility] [email or web address]) Hot Pack/Cold Pack Treatment Ice Massage Location right lateral hip Patient Position Sidelying Treatment Duration (minutes) 5 Patient Tolerance Good Ultrasound Therapy Treatment Right Hip Treatment Duration (minutes) 8 Patient Position Sidelying Coupling Medium Ultrasound Gel Applicator Size (cm2) 5 Frequency Setting (mHz) 1 Mode Setting Continuous Duty Cycle 100% Intensity Setting (w/cm2) 1.5 Comments over the ITB proximal attachment PT-OP-T Assessment and Plan Start: 01/11/19 14:42 Freq: Status: Active Protocol: Document 06/15/19 15:11 [facility] (Rec: 06/15/19 15:11 [facility] [email or web address]) Physical Therapy Plan Discharge Physical Therapy Discharge Reasons No Longer Attending PT Discharge Comments Pt has cancelled her remaining PT appointments. DC PT at this time
== END 2019-03-01 12:40 ==
LOC: PHYS 09:45
PROVIDERS: PCP Internal Medicine; Visit Provider Registered Nurse Women's Health Care, Ambulatory
DX: M25.559 Pain in unspecified hip (principal)
CPT/HCPCS: 97035; 97110; 97140; 97161

== ENCOUNTER → 2019-06-27 14:13 | Outpatient (CLI) | payer BC, OTHER, SELFPAY ==
--- NOTE | 2019-06-27 14:16 | DI.US.S_ITS ---
PROCEDURE: US PELVIC COMPLETE INDICATIONS: HEAVY VAGINAL BLEEDING TECHNIQUE: Real-time scanning was performed of the pelvic organs, with image documentation. Additional endovaginal scanning was necessary due to incomplete visualization of the adnexal and endometrial structures by transabdominal scanning. COMPARISON: None. FINDINGS: Transabdominal scanning: Limited scanning through the kidneys shows no hydronephrosis. No pathologic free abdominal or pelvic fluid. Endovaginal scanning: Uterus: Uterus is normal in size at 7.8 x 3.3 x 5.1 cm. mild arcuate uterine morphology. The endometrium measures 5.3 mm in combined thickness. Ovaries: Normal right ovary measured 3.8 x 1.2 x 2.1 cm. Left ovary is not visualized. IMPRESSION: No source for menorrhagia identified. Dictated by: Be ORELLANA Interpreted: Ilana Hughes MD on 06/27/2019 at 15:03 Approved by: Ilana Hughes M.D. on 06/27/2019 at 16:35
[2019-06-27 15:10] LABS: Add Manual Diff / Slide Review NO; Basophils Absolute Auto 100 /uL (0-100); Basophils Percent Auto 0.9 % (0-2); Eosinophils Absolute Auto 100 /uL (0-450); Eosinophils Percent Auto 1.5 % (2-4); Hematocrit 40.1 % (36-46); Hemoglobin 13.4 g/dL (12.0-16.0); Lymphocytes Absolute Auto 2100 /uL (1100-4500); Lymphocytes Percent Auto 29.4 % (25-40); Mean Corpuscular HGB Conc 33.5 % (30-36); Mean Corpuscular Hemoglobin 29.6 PG (26-34); Mean Corpuscular Volume 88.5 fL (80-100); Monocytes Absolute Auto 600 /uL (0-900); Neutrophils Absolute Auto 4400 /uL (1500-7000); Neutrophils Percent Auto 60.2 % (50-75); Platelet Count 319 X10^3/uL (150-400); Red Blood Cell Count 4.53 X10^6/uL (4.0-5.2); Red Cell Distribution Width 13.9 % (11.6-14.8); White Blood Cell Count 7.2 X10^3/uL (4.5-11.0)
== END ==
PROVIDERS: PCP Family Medicine; Visit Provider Family Medicine
DX: N92.3 Ovulation bleeding (principal)
CPT/HCPCS: 36415; 76830; 76856; 85025

== ENCOUNTER → 2019-10-26 09:09 | Outpatient (CLI) | payer BC, OTHER, SELFPAY ==
--- NOTE | 2019-10-26 | DI.RAD.S_ITS ---
PROCEDURE: XR HAND LT 2V INDICATIONS: LEFT 5TH FINGER INJURY 2 MTHS AGO TECHNIQUE: 3 views of the hand(s) acquired. COMPARISON: None. FINDINGS: Bones: No fractures or dislocations. Carpal bones are normally aligned. No suspicious bony lesions. Soft tissues: No suspicious soft tissue calcifications. IMPRESSION: No evidence of left hand fracture or dislocation. Dictated by: Mando Coulter M.D. on 10/26/2019 at 10:11 Approved by: Mando Coulter M.D. on 10/26/2019 at 10:12
== END ==
PROVIDERS: PCP Family Medicine; Referring Provider Internal Medicine; Visit Provider Internal Medicine
DX: S69.92XA Unspecified injury of left wrist, hand and finger(s), initial encounter (principal); X58.XXXA Exposure to other specified factors, initial encounter
CPT/HCPCS: 73130

== ENCOUNTER → 2020-03-26 10:18 | Outpatient (CLI) | payer BC, OTHER, SELFPAY ==
--- NOTE | 2020-03-26 | DI.RAD.S_ITS ---
PROCEDURE: XR HAND LT MIN 3V INDICATIONS: LEFT 4TH FINGER INJURY TECHNIQUE: 3 views of the hand(s) acquired. COMPARISON: [facility], CR, XR HAND LT MIN 3V, 10/26/2019, 9:47. FINDINGS: Bones: No fractures or dislocations. Mild flexion at the 4th distal interphalangeal joint. Carpal bones are normally aligned. No suspicious bony lesions. Soft tissues: No suspicious soft tissue calcifications. IMPRESSION: There is mild flexion at the 4th distal interphalangeal joint, suggestive of extensor tendon injury. Dictated by: Filiberto Lynch M.D. on 03/26/2020 at 16:53 Approved by: Filiberto Lynch M.D. on 03/26/2020 at 16:54
== END ==
PROVIDERS: PCP Internal Medicine; Referring Provider Internal Medicine; Visit Provider Internal Medicine
DX: S69.92XA Unspecified injury of left wrist, hand and finger(s), initial encounter (principal); X58.XXXA Exposure to other specified factors, initial encounter
CPT/HCPCS: 73130

== ENCOUNTER 2020-12-03 09:30 | Outpatient (RCR) | payer OTHER, SELFPAY ==
--- NOTE | 2020-08-30 08:16 | OT.OP.EVAL ---
Visit Care Team Role Provider Type ALY Hector Primary Care Provider Advanced Refuge Worker Specialty: Family Practice Address: [facility], [address], [place], [address] Email: [email or web address] Bernard Altamirano MD Attending Provider Physician Referring Provider Specialty: Orthopedics Address: [address] [place] [address] [address] [facility], [place], [address] opt2 Email: Occupational Therapy Initial Evaluation OT Outpatient Adult Evaluation Start: 08/30/20 07:50 Freq: Status: Active Protocol: Document 08/29/20 15:30 AMS (Rec: 08/30/20 08:15 AMS [id number]) General Information Visit Start Time 07:30 Visit Stop Time 08:15 Total Visit Minutes 45 Visit Number 06/19 Plan of Care Dates 08/29/20-10/10/20 Insurance Information [facility] Treatment Setting Outpatient Care Note Type Initial Evaluation Identification Confirmed Yes Goals Treatment HEP. ROM. Joint blocking. Fdc Goals 1. Patient will be modified independent with home exercise program utilizing provided written and visual instructions from therapist. 2. Patient will present with improved functional abilities with active incorporation of left hand; this will be evidenced by obtaining a score less than 25.0 on the QuickDASH UE Outcome Measure. 3. 30+ degrees pain-free active flexion of 4th digit DIP joint. Assessment/Plan Treatment Assessment Patient is a 45 year-old right hand dominant female referred to outpatient OT by Bernard Altamirano MD, UE ortho specialist, secondary to acquired mallet injury of left ring finger. PMH: Significant for fibromyalgia, back pain, jaw pain, neck pain, and headaches . h/o surgery L 3rd digit w/ 2 pins; non-surgerical management of L 5th digit fracture. Injury occurred approximately a year ago. Reported wearing of splint for several months post injury; no surgery. Evaluation was completed by other OT for same injury w/ initiation of HEP. Recently provided with compression finger sleeve for night time use. Pain Assessment Grid completed w/ indication of 4 out of 10 on pain scale relative to left 4th digit and 3 out of 10 on pain scale relative to left 5th digit. QuickDASH UE Outcome Measure Score = 38.6. Report of difficulties w/ completion of functional tasks (e.g., managing bucket for family chickens) and weakness. Also full extension of DIPJ; 25 degrees active flexion DIPJ ; 0-90 degrees AROM PIPJ; 0-85 degrees AROM MPJ. Outpatient OT recommended to address pain, ROM, functional abilities, and development of HEP. Comment 6 weeks Treatment Frequency Once a Week Comment 1 x every other week Therapeutic Contents Active Range of Motion, Adaptive Equipment Education, Client Education,Functional Activities,Joint Protection, Manual Therapy,Self-Care, Stretching/Flexibility Activities,Therapeutic Activities,Therapeutic Exercises,Modalities Additional Types of Modalities ultrasound, paraffin, heat, ice
--- NOTE | 2020-09-05 15:30 | OT.OP.TRT ---
Visit Care Team Role Provider Type ALY Hector Primary Care Provider Advanced Vice President Of Business Development Specialty: Family Practice Address: [address] [place] [address], [facility], [place], [address] Email: [email or web address] Bernard lAtamirano MD Attending Provider Physician Referring Provider Specialty: Orthopedics Address: [address] [place] [address] Dr Mercer [facility], [place], [address] opt2 Email: Occupational Therapy Treatment Note OT Outpatient Treatment Note - Adult Start: 08/30/20 07:50 Freq: Status: Active Protocol: Document 09/05/20 15:30 AMS (Rec: 09/06/20 10:02 AMS [id number]) OT Outpatient Adult Treatment Note Session Time Visit Start Time 13:30 Visit Stop Time 14:10 Total Visit Minutes 40 Visit Information Visit Number 2/6 Plan of Care Dates 08/29/20-10/10/20 Insurance Information [employer] Setting Treatment Setting Outpatient Care Visit Type Note Type Treatment Note General Information General Information Patient is a 45 year-old right hand dominant female referred to outpatient OT by Bernard Altamirano MD, UE ortho specialist, secondary to acquired mallet injury of left ring finger. PMH: Significant for fibromyalgia, back pain, jaw pain, neck pain, and headaches . h/o surgery L 3rd digit w/ 2 pins; non-surgerical management of L 5th digit fracture. Injury occurred approximately a year ago. Reported wearing of splint for several months post injury; no surgery. Evaluation was completed by other OT for same injury w/ initiation of HEP. Recently provided with compression finger sleeve for night time use. - Subjective Identification Type Name Identification Reconciled With Medical Record Observations It still feels stiff per Karla. Patient/Caregiver Compliance with Home Good Exercise Program - Objective Objective Measurements Please refer to below for progress towards meeting established OT goals. [facility] Goals 1. Patient will be modified independent with home exercise program utilizing provided written and visual instructions from therapist. 2. Patient will present with improved functional abilities with active incorporation of left hand; this will be evidenced by obtaining a score less than 25.0 on the QuickDASH UE Outcome Measure. 3. 30+ degrees pain-free active flexion of 4th digit DIP joint. - Treatment 2 Descriptor Manual therapy. 1 Descriptor Ultrasound. 20% duty cycle. 2. 0 w/cm2 to L 4th digit to address swelling management. Exercises 2 Descriptor Therapist resisted strengthening exercises to 4th digit. 2 x 10 repetitions each exercise. 1 Descriptor ROM. Joint blocking. Tendon glides. - Assessment Assessment of Improvement c/o stiffness upon arrival to treatment session. No exacerbation of pain/ discomfort w/ execution of recommended exercises. Tolerated treatment w/ report of decreased stiffness post treatment session. Recommend advance to resistant exercises as able. - Plan Therapy Recommendations Continue with Current Program, Advance per Rehabilitation Protocol
--- NOTE | 2020-09-06 10:02 | OT.OP.TRT ---
Visit Care Team Role Provider Type ALY Hector Primary Care Provider Advanced Hydrometer Finisher Specialty: Family Practice Address: [address] [place] [address], [facility], [place], [address] Email: [email or web address] Bernard Altamirano MD Attending Provider Physician Referring Provider Specialty: Orthopedics Address: [address] [place] [address] Dr Mercer [facility], [place], [address] opt2 Email: Occupational Therapy Treatment Note OT Outpatient Treatment Note - Adult Start: 08/30/20 07:50 Freq: Status: Active Protocol: Document 09/05/20 15:30 AMS (Rec: 09/06/20 10:02 AMS [id number]) OT Outpatient Adult Treatment Note Session Time Visit Start Time 13:30 Visit Stop Time 14:10 Total Visit Minutes 40 Visit Information Visit Number 2/6 Plan of Care Dates 08/29/20-10/10/20 Insurance Information [facility] Setting Treatment Setting Outpatient Care Visit Type Note Type Treatment Note General Information General Information Patient is a 45 year-old right hand dominant female referred to outpatient OT by Bernard Altamirano MD, UE ortho specialist, secondary to acquired mallet injury of left ring finger. PMH: Significant for fibromyalgia, back pain, jaw pain, neck pain, and headaches . h/o surgery L 3rd digit w/ 2 pins; non-surgerical management of L 5th digit fracture. Injury occurred approximately a year ago. Reported wearing of splint for several months post injury; no surgery. Evaluation was completed by other OT for same injury w/ initiation of HEP. Recently provided with compression finger sleeve for night time use. - Subjective Identification Type Name Identification Reconciled With Medical Record Observations It still feels stiff per Karla. Patient/Caregiver Compliance with Home Good Exercise Program - Objective Objective Measurements Please refer to below for progress towards meeting established OT goals. Fdc Goals 1. Patient will be modified independent with home exercise program utilizing provided written and visual instructions from therapist. 2. Patient will present with improved functional abilities with active incorporation of left hand; this will be evidenced by obtaining a score less than 25.0 on the QuickDASH UE Outcome Measure. 3. 30+ degrees pain-free active flexion of 4th digit DIP joint. - Treatment 2 Descriptor Manual therapy. 1 Descriptor Ultrasound. 20% duty cycle. 2. 0 w/cm2 to L 4th digit to address swelling management. Exercises 2 Descriptor Therapist resisted strengthening exercises to 4th digit. 2 x 10 repetitions each exercise. 1 Descriptor ROM. Joint blocking. Tendon glides. - Assessment Assessment of Improvement c/o stiffness upon arrival to treatment session. No exacerbation of pain/ discomfort w/ execution of recommended exercises. Tolerated treatment w/ report of decreased stiffness post treatment session. Recommend advance to resistant exercises as able. - Plan Therapy Recommendations Continue with Current Program, Advance per Rehabilitation Protocol
--- NOTE | 2020-09-26 15:54 | OT.OP.TRT ---
Visit Care Team Role Provider Type ALY Hector Primary Care Provider Advanced Grain Picker Specialty: Family Practice Address: [address] [place] [address], [facility], [place], [address] Email: [email or web address] Bernard Altamirano MD Attending Provider Physician Referring Provider Specialty: Orthopedics Address: [address] [place] [address] Dr [address], [place], [address] opt2 Email: Occupational Therapy Treatment Note OT Outpatient Treatment Note - Adult Start: 08/30/20 07:50 Freq: Status: Active Protocol: Document 09/26/20 15:47 AMS (Rec: 09/26/20 15:53 AMS [id number]) OT Outpatient Adult Treatment Note Session Time Visit Start Time 13:30 Visit Stop Time 14:10 Total Visit Minutes 40 Visit Information Visit Number 08/17 Plan of Care Dates 08/29/20-10/10/20 Insurance Information [facility] Treatment Setting Outpatient Care Visit Type Note Type Treatment Note General Information General Information Patient is a 45 year-old right hand dominant female referred to outpatient OT by Bernard Altamirano MD, UE ortho specialist, secondary to acquired mallet injury of left ring finger. PMH: Significant for fibromyalgia, back pain, jaw pain, neck pain, and headaches . h/o surgery L 3rd digit w/ 2 pins; non-surgerical management of L 5th digit fracture. Injury occurred approximately a year ago. Reported wearing of splint for several months post injury; no surgery. Evaluation was completed by other OT for same injury w/ initiation of HEP. Recently provided with compression finger sleeve for night time use. - Subjective Identification Type Name Identification Reconciled With Medical Record Observations I have been doing my exercises at least once a day per Karla. Patient/Caregiver Compliance with Home Good Exercise Program - Objective Objective Measurements Please refer to below for progress towards meeting established OT goals. 09/26/20 = 50 degrees active flexion of DIP joint of left ring finger. [facility] Goals 1. Patient will be modified independent with home exercise program utilizing provided written and visual instructions from therapist. 2. Patient will present with improved functional abilities with active incorporation of left hand; this will be evidenced by obtaining a score less than 25.0 on the QuickDASH UE Outcome Measure. GOALS MET 30+ degrees pain-free active flexion of 4th digit DIP joint . *MET 09/26/20 - Treatment 2 Descriptor Manual therapy. 1 Descriptor Ultrasound. 20% duty cycle. 2. 0 w/cm2 to L 4th digit to address swelling management. Exercises 2 Descriptor Resisted strengthening exercises to 4th digit. Medium soft red theraputty. 1 Descriptor ROM. Joint blocking. Tendon glides. - Assessment Assessment of Improvement Report of daily execution of exercises. Provision of medium soft red theraputty for strengthening; verbally reviewed storage/care of theraputty. Karla denied questions. Decreased pain/ discomfort reported of 4th ring finger; pain presentation primarily presenting in the 5th little finger of the left hand. Continued stiffness reported; however, improved active flexion measured at 4th ring DIP joint. Patient met short term goal in this area. Discussed need for new referral w/ inclusion of 5th finger in order for therapist to address 5th digit concerns. Based on 5th digit presentation, strengthening exercises may be limited. - Plan Therapy Recommendations Continue with Current Program, Advance per Rehabilitation Protocol
--- NOTE | 2020-10-03 15:30 | OT.OP.TRT ---
Visit Care Team Role Provider Type ALY Hector Primary Care Provider Advanced Professional Application Designer Specialty: Family Practice Address: [address] [place] [address], [facility], [place], [address] Email: [email or web address] Bernard Altamirano MD Attending Provider Physician Referring Provider Specialty: Orthopedics Address: [address] [place] [address] Dr Lozoya, [place], [address] opt2 Email: Occupational Therapy Treatment Note OT Outpatient Treatment Note - Adult Start: 08/30/20 07:50 Freq: Status: Active Protocol: Document 10/03/20 15:30 AMS (Rec: 10/04/20 11:44 AMS [id number]) OT Outpatient Adult Treatment Note Session Time Visit Start Time 13:30 Visit Stop Time 14:15 Total Visit Minutes 45 Visit Information Visit Number 09/17 Plan of Care Dates 08/29/20-10/10/20 Insurance Information [facility] Treatment Setting Outpatient Care Visit Type Note Type Treatment Note General Information General Information Patient is a 45 year-old right hand dominant female referred to outpatient OT by Bernard Altamirano MD, UE ortho specialist, secondary to acquired mallet injury of left ring finger. PMH: Significant for fibromyalgia, back pain, jaw pain, neck pain, and headaches . h/o surgery L 3rd digit w/ 2 pins; non-surgerical management of L 5th digit fracture. Injury occurred approximately a year ago. Reported wearing of splint for several months post injury; no surgery. Evaluation was completed by other OT for same injury w/ initiation of HEP. Recently provided with compression finger sleeve for night time use. - Subjective Identification Type Name Identification Reconciled With Medical Record Observations It is a little more tender today per Karla. I got a new referral for the other finger. However, it says PT. The front counter clerk is going to follow-up with my doctor to request it be changed to OT. Patient/Caregiver Compliance with Home Good Exercise Program - Objective Objective Measurements Please refer to below for progress towards meeting established OT goals. 09/26/20 = 50 degrees active flexion of DIP joint of left ring finger. Foreign Food Specialty Cook Goals 1. Patient will be modified independent with home exercise program utilizing provided written and visual instructions from therapist. 2. Patient will present with improved functional abilities with active incorporation of left hand; this will be evidenced by obtaining a score less than 25.0 on the QuickDASH UE Outcome Measure. GOALS MET 30+ degrees pain-free active flexion of 4th digit DIP joint . *MET 09/26/20 - Treatment 2 Descriptor Manual therapy. 1 Descriptor Ultrasound. 20% duty cycle. 2. 0 w/cm2 to L 4th digit to address swelling management. Exercises 2 Descriptor Resisted strengthening exercises to 4th digit. Medium soft red theraputty. 1 Descriptor ROM. Joint blocking. Tendon glides. - Assessment Assessment of Improvement Report of daily execution of exercises. Increased tenderness of the 4th digit. Focus on manual therapy. Will address 5th digit concerns with receipt of new referral by physician. - Plan Therapy Recommendations Continue with Current Program, Advance per Rehabilitation Protocol
--- NOTE | 2020-10-21 12:41 | OT.OPPOC ---
Physical, Occupational & Speech Therapy At [facility] Karla Curtis [id number] Karla Curtis Visit Care Team Role Provider Type ALY Hector Primary Care Provider Advanced Gauge Checker Address: [address] [place] [address], [place], [address] Bernard Altamirano MD Attending Provider Physician Referring Provider Address: [address] [place] [address] Dr Mercer Christiano, [place], [address] opt2 Occupational Therapy Plan of Care OT Outpatient Adult Evaluation Start: 08/30/20 07:50 Freq: Status: Active Protocol: Document 08/29/20 15:30 AMS (Rec: 08/30/20 08:15 AMS [id number]) General Information Session Time Visit Start Time 07:30 Visit Stop Time 08:15 Total Visit Minutes 45 Visit Information Visit Number 06/19 Plan of Care Dates 08/29/20-10/10/20 Insurance Information [facility] Setting Treatment Setting Outpatient Care Visit Type Note Type Initial Evaluation Identification Identification Confirmed Yes Goals Treatment Treatment HEP. ROM. Joint blocking. Jail Goals Jail Goals 1. Patient will be modified independent with home exercise program utilizing provided written and visual instructions from therapist. 2. Patient will present with improved functional abilities with active incorporation of left hand; this will be evidenced by obtaining a score less than 25.0 on the QuickDASH UE Outcome Measure. 3. 30+ degrees pain-free active flexion of 4th digit DIP joint. Assessment/Plan Assessment Treatment Assessment Patient is a 45 year-old right hand dominant female referred to outpatient OT by Bernard Altamirano MD, UE ortho specialist, secondary to acquired mallet injury of left ring finger. PMH: Significant for fibromyalgia, back pain, jaw pain, neck pain, and headaches . h/o surgery L 3rd digit w/ 2 pins; non-surgerical management of L 5th digit fracture. Injury occurred approximately a year ago. Reported wearing of splint for several months post injury; no surgery. Evaluation was completed by other OT for same injury w/ initiation of HEP. Recently provided with compression finger sleeve for night time use. Pain Assessment Grid completed w/ indication of 4 out of 10 on pain scale relative to left 4th digit and 3 out of 10 on pain scale relative to left 5th digit. QuickDASH UE Outcome Measure Score = 38.6. Report of difficulties w/ completion of functional tasks (e.g., managing bucket for family chickens) and weakness. Also full extension of DIPJ; 25 degrees active flexion DIPJ ; 0-90 degrees AROM PIPJ; 0-85 degrees AROM MPJ. Outpatient OT recommended to address pain, ROM, functional abilities, and development of HEP. Plan Comment 6 weeks Treatment Frequency Once a Week Comment 1 x every other week Therapeutic Contents Active Range of Motion, Adaptive Equipment Education, Client Education,Functional Activities,Joint Protection, Manual Therapy,Self-Care, Stretching/Flexibility Activities,Therapeutic Activities,Therapeutic Exercises,Modalities Additional Types of Modalities ultrasound, paraffin, heat, ice Sensory Assessment Sensory Profile2 Functional Wrist/Hand Scan Hand Side OT Outpatient Treatment Note - Adult Start: 08/30/20 07:50 Freq: Status: Active Protocol: Document 10/21/20 12:20 AMS (Rec: 10/21/20 12:40 AMS [id number]) OT Outpatient Adult Treatment Note Session Time Visit Start Time 09:40 Visit Stop Time 10:30 Total Visit Minutes 50 Visit Information Visit Number /6 Plan of Care Dates 10/10/20-12/05/20 Insurance Information [facility] Setting Treatment Setting Outpatient Care Visit Type Note Type Progress Note General Information General Information Patient is a 45 year-old right hand dominant female referred to outpatient OT by Bernard Altamirano MD, UE ortho specialist, secondary to acquired mallet injury of left ring finger. PMH: Significant for fibromyalgia, back pain, jaw pain, neck pain, and headaches . h/o surgery L 3rd digit w/ 2 pins; non-surgerical management of L 5th digit fracture. Injury occurred approximately a year ago. Reported wearing of splint for several months post injury; no surgery. Evaluation was completed by other OT for same injury w/ initiation of HEP. Recently provided with compression finger sleeve for night time use. - Subjective Identification Type Name Identification Reconciled With Medical Record Observations Patient's PCP, ALY Hector, referred her to outpatient OT secondary to L 5th digit pain (DIPJ). Patient completed Pain Assessment Grid; she indicated 2 out of 10 on pain scale relative to the dorsal and volar surfaces of the 4th and 5th digits of the left hand. She completed the QuickDASH UE Outcome Measure and obtained a score of 11.4. Patient/Caregiver Compliance with Home Good Exercise Program - Objective Objective Measurements Please refer to below for progress towards meeting established OT goals. 09/26/20 = 50 degrees active flexion of DIP joint of left ring finger. ROM Measurements obtained 10/21 = Left 5th digit = L MCPJ = 0-90; L PIPJ = 0-95; L DIPJ 0-38; Right 5th digit = R MCPJ = 0-93; R PIPJ = 0-95; R DIPJ = 0-60 Rolling Mill Operator Goals 1. Patient will be modified independent with home exercise program utilizing provided written and visual instructions from therapist. = 50% met 2. Patient will present with improved active range of motion of left 5th DIPJ; 0-45 degrees pain-free active flexion at DIPJ of left 5th digit. GOALS MET 30+ degrees pain-free active flexion of 4th digit DIP joint . *MET 09/26/20 Presenting with improved functional abilities with active incorporation of left hand; this will be evidenced by obtaining a score less than 25.0 on the QuickDASH UE Outcome Measure. *MET 10/21/20; score = 11.4 - Treatment 2 Descriptor Manual therapy. 1 Descriptor Ultrasound. 20% duty cycle. 2. 0 w/cm2 to L 5th digit to address swelling management. Exercises 1 Descriptor ROM. Joint blocking. Tendon glides. - Assessment Assessment of Improvement Report of daily execution of exercises. Presenting with reduced pain and discomfort of the 4th and 5th digits of the left hand; improved from 4 out of 10 to 2 out of 10 on the pain scale relative to the left 4th digit and from 3 out of 10 to 2 out of 10 on the pain scale relative to the left 5th digit w/ use. Improved functional abilities of the left hand; improved QuickDASH UE Outcome score from 38.6 to 11.4. New referral received from primary care physician to address left fifth digit. Decreased active range of motion of DIP joint w/ flexion compared to R DIPJ; slight medial rotation at DIPJ. Discomfort encountered when walking when temperatures are colder. Karla has made improvements with outpatient OT services relative to the 4th digit; recommend addressing left 5th digit to support functional incorporation/abilities of the left hand. - Plan Therapy Recommendations Continue with Current Program, Advance per Rehabilitation Protocol Comment 8 weeks Frequency of Treatment Once a Week Therapeutic Contents Active Range of Motion, Adaptive Equipment Education, Client Education,Cognitive Skills Development,Functional Activities,Home Exercise Program,Joint Protection, Manual Therapy,Education, Neurodevelopment Treatment, Neuromuscular Re-Education, Self-Care,Stretching/ Flexibility Activities, Therapeutic Activities, Therapeutic Exercises, Modalities Modalities As Needed,As Prescribed Types of Modalities Contrast Bath,Ice Massage, Ultrasound Additional Types of Modalities Cold pack/Hot pack Electronically Signed by: Bonnie Jordan OT 10/21/20 1861 Please Sign and Return: I have reviewed this Plan of Care and certify that the skilled therapy services above are required to meet the patient?s needs. Physician Signature Date Printed Name and Credentials Clinical Instructor Signature Printed Name and Credentials
--- NOTE | 2020-10-28 10:43 | OT.OP.TRT ---
Visit Care Team Role Provider Type AYL Hector Primary Care Provider Advanced Secretarial Teacher Specialty: Family Practice Address: [address] [place] [address], [address], [place], [address] Email: [email or web address] Bernard Altamirano MD Attending Provider Physician Referring Provider Specialty: Orthopedics Address: [address] [place] [address] Dr Lozoya, [place], [address] opt2 Email: Occupational Therapy Treatment Note OT Outpatient Treatment Note - Adult Start: 08/30/20 07:50 Freq: Status: Active Protocol: Document 10/28/20 09:26 AMS (Rec: 10/28/20 10:43 AMS [id number]) OT Outpatient Adult Treatment Note Session Time Visit Start Time 09:35 Visit Stop Time 10:25 Total Visit Minutes 50 Visit Information Visit Number 11/17 Plan of Care Dates 10/10/20-12/05/20 Insurance Information [facility] Treatment Setting Outpatient Care Visit Type Note Type Treatment Note General Information General Information Patient is a 45 year-old right hand dominant female referred to outpatient OT by Bernard Altamirano MD, UE ortho specialist, secondary to acquired mallet injury of left ring finger. PMH: Significant for fibromyalgia, back pain, jaw pain, neck pain, and headaches . h/o surgery L 3rd digit w/ 2 pins; non-surgerical management of L 5th digit fracture. Injury occurred approximately a year ago. Reported wearing of splint for several months post injury; no surgery. Evaluation was completed by other OT for same injury w/ initiation of HEP. Recently provided with compression finger sleeve for night time use. - Subjective Identification Type Name Identification Reconciled With Medical Record Observations I can now fit the rings on that finger per Karla. There is just a sore, achyness feeling per Karla. Patient/Caregiver Compliance with Home Good Exercise Program - Objective Objective Measurements Please refer to below for progress towards meeting established OT goals. 09/26/20 = 50 degrees active flexion of DIP joint of left ring finger. ROM Measurements obtained 10/21 = Left 5th digit = L MCPJ = 0-90; L PIPJ = 0-95; L DIPJ 0-38; Right 5th digit = R MCPJ = 0-93; R PIPJ = 0-95; R DIPJ = 0-60 It Systems Administrator Goals 1. Patient will be modified independent with home exercise program utilizing provided written and visual instructions from therapist. = 50% met 2. Patient will present with improved active range of motion of left 5th DIPJ; 0-45 degrees pain-free active flexion at DIPJ of left 5th digit. GOALS MET 30+ degrees pain-free active flexion of 4th digit DIP joint . *MET 09/26/20 Presenting with improved functional abilities with active incorporation of left hand; this will be evidenced by obtaining a score less than 25.0 on the QuickDASH UE Outcome Measure. *MET 10/21/20; score = 11.4 - Treatment 2 Descriptor Manual therapy. 1 Descriptor Ultrasound. 20% duty cycle. 2. 0 w/cm2 to L 5th digit to address swelling management. Exercises 1 Descriptor ROM. Joint blocking. Tendon glides. - Assessment Assessment of Improvement Report of execution of recommended home exercises; reported increased ability to wear rings on the left hand. Tolerated treatment. Completion of insurance paperwork by therapist provided to outpatient clinic insurance collector; will request additional visits from insurance w/ increased focus on addressing concerns related to 5th digit of the left hand (d/t non-surgically managed 5th digit fracture). - Plan Therapy Recommendations Continue with Current Program, Advance per Rehabilitation Protocol
--- NOTE | 2020-11-15 15:57 | OT.OP.TRT ---
Visit Care Team Role Provider Type ALY Hector Primary Care Provider Advanced Independent Trader Specialty: Family Practice Address: [address] [place] [address], [address], [place], [address] Email: [email or web address] Bernard Altamirano MD Attending Provider Physician Referring Provider Specialty: Orthopedics Address: [address] [place] [address] Dr Mercer [facility], [place], [address] opt2 Email: Occupational Therapy Treatment Note OT Outpatient Treatment Note - Adult Start: 08/30/20 07:50 Freq: Status: Active Protocol: Document 11/15/20 15:51 AMS (Rec: 11/15/20 15:57 AMS [id number]) OT Outpatient Adult Treatment Note Session Time Visit Start Time 13:35 Visit Stop Time 14:20 Total Visit Minutes 45 Visit Information Visit Number 1/2 Plan of Care Dates 10/10/20-12/05/20 Insurance Information [facility] Setting Treatment Setting Outpatient Care Visit Type Note Type Treatment Note General Information General Information Patient is a 45 year-old right hand dominant female referred to outpatient OT by Bernard Altamirano MD, UE ortho specialist, secondary to acquired mallet injury of left ring finger. PMH: Significant for fibromyalgia, back pain, jaw pain, neck pain, and headaches . h/o surgery L 3rd digit w/ 2 pins; non-surgerical management of L 5th digit fracture. Injury occurred approximately a year ago. Reported wearing of splint for several months post injury; no surgery. Evaluation was completed by other OT for same injury w/ initiation of HEP. Recently provided with compression finger sleeve for night time use. - Subjective Identification Type Name Identification Reconciled With Medical Record Observations I keep forgetting to use the theraputty per Karla. It was stiff the other day and it was bothering me per Karla . Patient/Caregiver Compliance with Home Good Exercise Program - Objective Objective Measurements Please refer to below for progress towards meeting established OT goals. 09/26/20 = 50 degrees active flexion of DIP joint of left ring finger. ROM Measurements obtained 10/21 = Left 5th digit = L MCPJ = 0-90; L PIPJ = 0-95; L DIPJ 0-38; Right 5th digit = R MCPJ = 0-93; R PIPJ = 0-95; R DIPJ = 0-60 Correction Goals 1. Patient will be modified independent with home exercise program utilizing provided written and visual instructions from therapist. = 50% met 2. Patient will present with improved active range of motion of left 5th DIPJ; 0-45 degrees pain-free active flexion at DIPJ of left 5th digit. 11/15/20 = 75% met; 0-40 degrees GOALS MET 30+ degrees pain-free active flexion of 4th digit DIP joint . *MET 09/26/20 Presenting with improved functional abilities with active incorporation of left hand; this will be evidenced by obtaining a score less than 25.0 on the QuickDASH UE Outcome Measure. *MET 10/21/20; score = 11.4 - Treatment 2 Descriptor Manual therapy. 1 Descriptor Ultrasound. 20% duty cycle. 2. 0 w/cm2 to L 5th digit to address swelling management. Exercises 1 Descriptor ROM. Joint blocking. Tendon glides. - Assessment Assessment of Improvement c/o continued stiffness of 5th digit. Using warm water/ temperature w/ ROM. Decreased use of theraputty; discussed functional opportunities to support strength gains ( management of personal purse, grocery bags, etc). Karla was able to self-identify functional opportunity to improve upon hand/digit strength. Tolerated treatment. Reviewed insurance limitations/authorization. Patient to schedule 1 more visit based on sx and auth. - Plan Therapy Recommendations Continue with Current Program, Advance per Rehabilitation Protocol
--- NOTE | 2020-12-03 14:01 | OT.OPPN ---
Current Diagnoses Mallet finger of left finger(s) (12/03/20) Pain in unspecified finger(s) (12/03/20) Unspecified injury of left wrist, hand and finger(s), initial encounter (12/03/20) OT Progress Note OT Outpatient Treatment Note - Adult Start: 08/30/20 07:50 Freq: Status: Active Protocol: Document 12/03/20 13:52 AMS (Rec: 12/03/20 14:01 AMS [id number]) OT Outpatient Adult Treatment Note Session Time Visit Start Time 09:45 Visit Stop Time 10:15 Total Visit Minutes 30 Visit Information Visit Number 2 Plan of Care Dates 12/05/20-12/31/20 Insurance Information [facility] Setting Treatment Setting Outpatient Care Visit Type Note Type Treatment Note General Information General Information Patient is a 45 year-old right hand dominant female referred to outpatient OT by Bernard Altamirano MD, UE ortho specialist, secondary to acquired mallet injury of left ring finger. PMH: Significant for fibromyalgia, back pain, jaw pain, neck pain, and headaches . h/o surgery L 3rd digit w/ 2 pins; non-surgerical management of L 5th digit fracture. Injury occurred approximately a year ago. Reported wearing of splint for several months post injury; no surgery. Evaluation was completed by other OT for same injury w/ initiation of HEP. Recently provided with compression finger sleeve for night time use. - Subjective Identification Type Name Identification Reconciled With Medical Record Observations I have been trying to use this hand more per Karla in re: L hand. Patient completed QuickDASH UE Outcome Measure and obtained a score = 22.7. Patient also completed Pain Assessment Grid; she indicated 2-3 out of 10 on the scale relative to dorsal and volar surfaces of the 4th and 5th digits of the left hand. Patient/Caregiver Compliance with Home Good Exercise Program - Objective Objective Measurements Please refer to below for progress towards meeting established OT goals. 09/26/20 = 50 degrees active flexion of DIP joint of left ring finger. ROM Measurements obtained 10/21 = Left 5th digit = L MCPJ = 0-90; L PIPJ = 0-95; L DIPJ 0-38; Right 5th digit = R MCPJ = 0-93; R PIPJ = 0-95; R DIPJ = 0-60 Veterinary Pharmacologist Goals 1. Patient will be modified independent with home exercise program utilizing provided written and visual instructions from therapist. = 75% met 2. Patient will present with improved active range of motion of left 5th DIPJ; 0-45 degrees pain-free active flexion at DIPJ of left 5th digit. 12/03/20 = 75% met; 0-40 degrees GOALS MET 30+ degrees pain-free active flexion of 4th digit DIP joint . *MET 09/26/20 Presenting with improved functional abilities with active incorporation of left hand; this will be evidenced by obtaining a score less than 25.0 on the QuickDASH UE Outcome Measure. *MET 10/21/20; score = 11.4 - Treatment 2 Descriptor Manual therapy. 1 Descriptor Ultrasound. 20% duty cycle. 2. 0 w/cm2 to L 5th digit to address swelling management. Exercises 1 Descriptor ROM. Joint blocking. Tendon glides. - Assessment Assessment of Improvement Patient report of increased use of the left, non-dominant hand in day-to-day life; however, continued c/o stiffness of the 4th and 5th digits (5th > 4th) and decreased functional abilities . Continued pain/discomfort of the 4th and 5th digits as well of the left hand. Karla tolerated treatment on this date. Reviewed insurance limitations/authorization and need to request for authorization of additional visits; patient would like to pursue additional treatment sessions for further treatment w/ focus on the 5th digit. Paperwork to be completed and submitted. - Plan Amount of Therapy Recommended 2-4 Weeks Frequency of Treatment Once a Week Therapeutic Contents Active Range of Motion, Adaptive Equipment Education, Client Education,Cognitive Skills Development,Functional Activities,Home Exercise Program,Joint Protection, Manual Therapy,Education,Self- Care,Therapeutic Activities, Therapeutic Exercises, Modalities,Sensory Re- education Additional Types of Modalities Ultrasound/Heat/Paraffin/Ice Please Sign and Return: I have reviewed this Plan of Care and certify that the skilled therapy services above are required to meet the patient?s needs. Physician Signature Date Printed Name and Credentials Clinical Instructor Signature Printed Name and Credentials
--- NOTE | 2021-01-01 07:29 | OT.OP.DC ---
Visit Care Team Role Provider Type ALY Hector Primary Care Provider Advanced Metalizing Supervisor Address: [address] [place] [address], [address], [place], [address] Email: [email or web address] Bernard Altamirano MD Attending Provider Physician Referring Provider Address: [address] [place] [address] Dr Mercer Christiano, [place], [address] opt2 Email: OT Outpatient OT Outpatient Adult Evaluation Start: 08/30/20 07:50 Freq: Status: Active Protocol: Document 08/29/20 15:30 AMS (Rec: 08/30/20 08:15 AMS [id number]) General Information Session Time Visit Start Time 07:30 Visit Stop Time 08:15 Total Visit Minutes 45 Visit Information Visit Number 06/19 Plan of Care Dates 08/29/20-10/10/20 Insurance Information Regen Setting Treatment Setting Outpatient Care Visit Type Note Type Initial Evaluation Identification Identification Confirmed Yes Goals Treatment Treatment HEP. ROM. Joint blocking. Manager Group Home Goals Residential Goals 1. Patient will be modified independent with home exercise program utilizing provided written and visual instructions from therapist. 2. Patient will present with improved functional abilities with active incorporation of left hand; this will be evidenced by obtaining a score less than 25.0 on the QuickDASH UE Outcome Measure. 3. 30+ degrees pain-free active flexion of 4th digit DIP joint. Assessment/Plan Assessment Treatment Assessment Patient is a 45 year-old right hand dominant female referred to outpatient OT by Bernard Altamirano MD, UE ortho specialist, secondary to acquired mallet injury of left ring finger. PMH: Significant for fibromyalgia, back pain, jaw pain, neck pain, and headaches . h/o surgery L 3rd digit w/ 2 pins; non-surgerical management of L 5th digit fracture. Injury occurred approximately a year ago. Reported wearing of splint for several months post injury; no surgery. Evaluation was completed by other OT for same injury w/ initiation of HEP. Recently provided with compression finger sleeve for night time use. Pain Assessment Grid completed w/ indication of 4 out of 10 on pain scale relative to left 4th digit and 3 out of 10 on pain scale relative to left 5th digit. QuickDASH UE Outcome Measure Score = 38.6. Report of difficulties w/ completion of functional tasks (e.g., managing bucket for family chickens) and weakness. Also full extension of DIPJ; 25 degrees active flexion DIPJ ; 0-90 degrees AROM PIPJ; 0-85 degrees AROM MPJ. Outpatient OT recommended to address pain, ROM, functional abilities, and development of HEP. Plan Comment 6 weeks Treatment Frequency Once a Week Comment 1 x every other week Therapeutic Contents Active Range of Motion, Adaptive Equipment Education, Client Education,Functional Activities,Joint Protection, Manual Therapy,Self-Care, Stretching/Flexibility Activities,Therapeutic Activities,Therapeutic Exercises,Modalities Additional Types of Modalities ultrasound, paraffin, heat, ice Sensory Assessment Sensory Profile2 Functional Wrist/Hand Scan Hand Side OT Outpatient Treatment Note - Adult Start: 08/30/20 07:50 Freq: Status: Active Protocol: Document 01/01/21 07:25 AMS (Rec: 01/01/21 07:28 AMS [id number]) OT Outpatient Adult Treatment Note Visit Information Visit Number 2 Plan of Care Dates 12/05/20-12/31/20 Insurance Information [facility] Visit Type Note Type Discharge Summary General Information General Information Patient is a 45 year-old right hand dominant female referred to outpatient OT by Bernard Altamirano MD, UE ortho specialist, secondary to acquired mallet injury of left ring finger. PMH: Significant for fibromyalgia, back pain, jaw pain, neck pain, and headaches . h/o surgery L 3rd digit w/ 2 pins; non-surgerical management of L 5th digit fracture. Injury occurred approximately a year ago. Reported wearing of splint for several months post injury; no surgery. Evaluation was completed by other OT for same injury w/ initiation of HEP. Recently provided with compression finger sleeve for night time use. - Subjective Observations Insurance denied additional outpatient OT services. Outpatient clinic property insurance agent notified patient of denial. POC 12/31/20 and last appointment for patient was 12/03/20. Recommend d/c at this time. - Objective Objective Measurements Please refer to below for progress towards meeting established OT goals. 09/26/20 = 50 degrees active flexion of DIP joint of left ring finger. ROM Measurements obtained 10/21 = Left 5th digit = L MCPJ = 0-90; L PIPJ = 0-95; L DIPJ 0-38; Right 5th digit = R MCPJ = 0-93; R PIPJ = 0-95; R DIPJ = 0-60 Residential Goals GOALS MET Patient will be modified independent with home exercise program utilizing provided written and visual instructions from therapist. * MET 12/03/20. Mod I w/ current HEP 30+ degrees pain-free active flexion of 4th digit DIP joint . *MET 09/26/20 Presenting with improved functional abilities with active incorporation of left hand; this will be evidenced by obtaining a score less than 25.0 on the QuickDASH UE Outcome Measure. *MET 10/21/20; score = 11.4 GOALS D/C Patient will present with improved active range of motion of left 5th DIPJ; 0-45 degrees pain-free active flexion at DIPJ of left 5th digit. 12/03/20 = 75% met; 0-40 degrees - - Assessment Assessment of Improvement Insurance denied additional outpatient OT services. Outpatient clinic property insurance agent notified patient of denial. POC 12/31/20 and last appointment for patient was 12/03/20. Recommend d/c at this time. - Plan Therapy Recommendations Discharge from Occupational Therapy
== END 2021-01-01 11:21 | disposition home or self-care (01) ==
LOC: OT 09:30
PROVIDERS: PCP Internal Medicine; Referring Provider Orthopaedic Surgery; Visit Provider Orthopaedic Surgery
DX: M20.012 Mallet finger of left finger(s) (principal); S69.92XA Unspecified injury of left wrist, hand and finger(s), initial encounter; M79.646 Pain in unspecified finger(s)
CPT/HCPCS: 97035; 97110; 97140; 97165

== ENCOUNTER → 2021-10-23 08:19 | Outpatient (CLI) | payer OTHER, SELFPAY ==
--- NOTE | 2021-10-23 | DI.US.S_ITS ---
PROCEDURE: US PELVIC COMPLETE INDICATIONS: EXCESSIVE AND FREQUENT MENSTRUATION TECHNIQUE: Real-time scanning was performed of the pelvic organs, with image documentation. Additional endovaginal scanning was necessary due to incomplete visualization of the adnexal and endometrial structures by transabdominal scanning. COMPARISON: [facility], US, US PELVIC COMPLETE, 06/27/2019, 14:27. FINDINGS: Uterus: Uterus is anteverted and normal in size at 9 x 5.8 x 4.6 cm. The myometrium is homogeneous, with note made of a septate versus arcuate uterus. The endometrium measures 4 mm combined thickness. Ovaries: The right ovary measures 3.1 x 1.7 x 3.2 cm. The left ovary measures 4.4 x 4.4 x 3.6 cm, and demonstrates a cystic focus with internal debris that measures 3.9 x 4 x 3.8 cm. Anechoic foci can be seen along the margins of the left ovary that measures 2.5 x 2.5 x 1.2 cm and 2 x 1.5 x 1.9 cm, which are considered to be within physiologic limits. The ovaries otherwise have a normal sonographic appearance. No adnexal masses are seen. Normal appearing arterial waveforms are confirmed to each ovary. Other: No pathologic free abdominal or pelvic fluid. IMPRESSION: 4 cm complex cyst seen of the left ovary. If it would be clinically appropriate, a followup pelvic ultrasound could be considered in 6 weeks to assure resolution/ improvement. Septate versus arcuate uterus incidentally noted. We strive to produce accurate, complete, and clear reports of imaging services. To assist us in improving patient care, this report was composed using standard report templates and voice recognition software. Therefore, it may contain abnormal punctuation, insertions and/or omissions. Occasional wrong-word or sound-alike substitutions may occur. Though we review the report and make efforts to correct it, we do recommend that the report be read carefully in proper context to recognize any text inaccuracies. Dictated by: John Rodriguez M.D. on 10/23/2021 at 9:02 Approved by: John Rodriguez M.D. on 10/23/2021 at 9:04
== END ==
PROVIDERS: PCP Internal Medicine; Referring Provider Naturopath; Visit Provider Naturopath
DX: N92.1 Excessive and frequent menstruation with irregular cycle (principal); N83.292 Other ovarian cyst, left side
CPT/HCPCS: 76830; 76856

== ENCOUNTER → 2021-12-19 09:11 | Outpatient (CLI) | payer OTHER, SELFPAY ==
--- NOTE | 2021-12-19 | DI.US.S_ITS ---
PROCEDURE: US PELVIC COMPLETE INDICATIONS: PELVIC PAIN TECHNIQUE: Real-time scanning was performed of the pelvic organs, with image documentation. Additional endovaginal scanning was necessary due to incomplete visualization of the adnexal and endometrial structures by transabdominal scanning. COMPARISON: [facility], US, US PELVIC COMPLETE, 10/23/2021, 9:35. FINDINGS: Uterus: Uterus is anteverted and normal in size at 8.8 x 5.4 x 4.5 cm. The myometrium is homogeneous. The endometrium measures 9.2 mm combined thickness. Ovaries: The right ovary measures 2.8 x 2.5 x 1.6 cm, and the left ovary measures 3.0 x 3.0 x 1.7 cm. The ovaries have a normal sonographic appearance. Less than 12 follicles can be seen in each ovary. No adnexal masses are seen. The left ovary is somewhat difficult to characterize given overlying bowel; however the previously visualized hemorrhagic cyst is no longer seen. A probable follicular cyst is present. Other: No pathologic free abdominal or pelvic fluid. IMPRESSION: Resolution of the left ovarian hemorrhagic cyst when compared with the prior ultrasound. No new sonographic abnormalities. We strive to produce accurate, complete, and clear reports of imaging services. To assist us in improving patient care, this report was composed using standard report templates and voice recognition software. Therefore, it may contain abnormal punctuation, insertions and/or omissions. Occasional wrong-word or sound-alike substitutions may occur. Though we review the report and make efforts to correct it, we do recommend that the report be read carefully in proper context to recognize any text inaccuracies. Dictated by: Kera Giron M.D. on 12/19/2021 at 12:57 Approved by: Kera Giron M.D. on 12/19/2021 at 12:58
== END ==
PROVIDERS: PCP Internal Medicine; Referring Provider Nurse Practitioner Family; Visit Provider Naturopath
DX: R10.2 Pelvic and perineal pain (principal); M76.21 Iliac crest spur, right hip
CPT/HCPCS: 76830; 76856

== ENCOUNTER → 2022-06-17 15:40 | Outpatient (CLI) | payer OTHER, SELFPAY ==
--- NOTE | 2022-06-17 | DI.RAD.S_ITS ---
PROCEDURE: XR WRIST RT MIN 3V INDICATIONS: RT WRIST PAIN TECHNIQUE: 4 views of the wrist were acquired. COMPARISON: None. FINDINGS: Bones: No fractures or dislocations. No suspicious bony lesions. Scaphoid view: Unremarkable Soft tissues: No suspicious soft tissue calcifications. IMPRESSION: Unremarkable right wrist radiographs Approved by: Stephan Jaimes M.D. on 06/17/2022 at 17:37
== END ==
PROVIDERS: PCP Internal Medicine; Referring Provider Internal Medicine; Visit Provider Internal Medicine
DX: M25.531 Pain in right wrist (principal)
CPT/HCPCS: 73110

== ENCOUNTER → 2022-08-19 16:19 | Outpatient (CLI) | payer OTHER, SELFPAY ==
--- NOTE | 2022-08-19 16:22 | DI.US.S_ITS ---
PROCEDURE: US PELVIC COMPLETE INDICATIONS: Menorrhagia TECHNIQUE: Real-time scanning was performed of the pelvic organs, with image documentation. Additional endovaginal scanning was necessary due to incomplete visualization of the adnexal and endometrial structures by transabdominal scanning. COMPARISON: [facility], US, US PELVIC COMPLETE, 04/14/2022, 12:03. FINDINGS: Uterus: Uterus is anteverted and normal in size at 7.7 x 3.7 x 5.1 cm. The myometrium is mildly heterogeneous although the junctional zone is visualized and appears normal in thickness. The endometrium measures 4 mm combined thickness. Nabothian cysts are present. Ovaries: The right ovary measures 2.9 x 1.2 x 1.3 cm, with a calculated ovarian volume of 2.4 cc. The left ovary measures 2.6 x 0.9 x 1.9 cm, with a calculated ovarian volume of 2.3 cc. The ovaries have a normal sonographic appearance. Less than 12 follicles can be seen in each ovary. No adnexal masses are seen. Other: No pathologic free abdominal or pelvic fluid. IMPRESSION: No significant sonographic abnormality. We strive to produce accurate, complete, and clear reports of imaging services. To assist us in improving patient care, this report was composed using standard report templates and voice recognition software. Therefore, it may contain abnormal punctuation, insertions and/or omissions. Occasional wrong-word or sound-alike substitutions may occur. Though we review the report and make efforts to correct it, we do recommend that the report be read carefully in proper context to recognize any text inaccuracies. Approved by: Nic Bradford M.D. on 08/20/2022 at 12:08
== END ==
PROVIDERS: Family Provider Internal Medicine; PCP Internal Medicine; Referring Provider Obstetrics & Gynecology; Visit Provider Obstetrics & Gynecology
DX: N92.0 Excessive and frequent menstruation with regular cycle (principal)
CPT/HCPCS: 76830; 76856

== ENCOUNTER 2022-10-29 16:00 | Outpatient (RCR) | payer OTHER, SELFPAY ==
--- NOTE | 2022-08-11 17:09 | PT.OIE ---
Current Diagnoses Radial styloid tenosynovitis [de Quervain] (08/11/22) Other synovitis and tenosynovitis, right hand (08/11/22) Past Medical History (Last Updated 11/18/18 @ 16:55 by Ros Chase MD) Fibromyalgia GERD (gastroesophageal reflux disease) Past Surgical History (Last Updated 11/18/18 @ 16:55 by Ros Chase MD) History of third molar tooth extraction History of tonsillectomy Visit Care Team Role Provider Type ALY Hector Attending Provider Advanced Aeronautical Inspector Family Provider Primary Care Provider Referring Provider Specialty: [facility] Address: [address] [place] [address], [facility] Email: [email or web address] Physical Therapy Initial Evaluation PT-OP-A Visit Information Start: 08/11/22 14:22 Freq: Status: Active Protocol: Document 08/11/22 14:30 [facility] (Rec: 08/11/22 15:44 [facility] [id number]) Out-Patient Physical Therapy Visit Information Visit Information Visit Type Initial Evaluation Visit Start Time 14:30 Visit Stop Time 15:15 Total Visit Minutes 45 Visit Number 1 Evaluation Information Evaluation Date 08/11/22 PT-OP-B Current Condition Start: 08/11/22 14:22 Freq: Status: Active Protocol: Document 08/11/22 14:30 [facility] (Rec: 08/11/22 15:44 [facility] [id number]) Current Condition History of Current Condition Onset Date April 2022 History of Current Condition Symptoms of wrist and thumb pain started around 2021, she had started lifting gentle weights and also has to pick her dog out of her car. After winter break it was bothering her more. She just ordered a low profile mouse that is cordless and this has helped. If she bends her wrists at night she will get elbow pain. She is wearing a splint since Jun 23 She has a sit-stand desk for work but she works from home half the time witout a sit stand. She also feels like she has neck tightness more on the right side. The splint is helping and she finds her self wearing it most of the time Treatment Goals Patient/Caregiver Goals Pts goals include eliminating pain in her thumb and wrist Current Functional Impairments (Reported) Functional Limitations- ADL's pain with activities that include picking up heavy objects, moderate difficulty getting in and out of the bathtub and putting on shoes and socks Functional Limitations- Work/School pt describes moderate difficulty with house hold and work related activity PT-OP-C Subjective Start: 08/11/22 14:22 Freq: Status: Active Protocol: Document 08/11/22 14:30 [facility] (Rec: 08/11/22 15:44 [facility] [id number]) OP-PT Pain Assessment Pain Assessment Grid Paper Pain Assessment Grid Completed Yes Location right common extensor tendon Pain Location Details right common extensor tendon Radiating Location radiates to the thumb Pain Aggravating Factors Position,Activity PT-OP-F Manual Assessment Start: 08/11/22 14:22 Freq: Status: Active Protocol: Document 08/11/22 14:30 [facility] (Rec: 08/11/22 16:30 [facility] [id number]) Manual Assessments Soft Tissue Assessment Soft Tissue Mobility Assessment myofascial restrictions across the common wrist extensor tendons on the right, tightness in the R thumb abductor pollicus longus and extensor pollicus brevis, tightness in B pec minor muscles, scalenes and upper trapezius Other Manual Assessments Other Manual Assessments + ULTT for median nerve and radial nerve on the right PT-OP-J Posture/Palpation/Skin Start: 08/11/22 14:22 Freq: Status: Active Protocol: Document 08/11/22 14:30 [facility] (Rec: 08/11/22 15:44 [facility] [id number]) Palpation Assessment Location abductor pollicus longus and extensor pollicus brevis of the right wrist Palpation Details tenderness in the above tendons and pain increases with stretch to the tendons PT-OP-K Range of Motion Start: 08/11/22 14:22 Freq: Status: Active Protocol: Document 08/11/22 14:30 [facility] (Rec: 08/11/22 16:33 [facility] [id number]) Cervical Spine Range of Motion Cervical Spine Passive Testing Position Supine Lateral Flexion Left 10 Lateral Flexion Right 10 ROM Limitations Soft Tissue Tightness Comments pt is restricted in her scalenes and upper trapezius and lacks ROM into cervical sidebending due to tightness and guarding Elbow/Forearm Range of Motion Elbow/Forearm right Elbow/Forearm ROM WFL Yes Comments pain at end range elbow extension with wrist flexion stretch Wrist Goniometric Range of Motion Wrist Right Wrist ROM WFL Yes ROM Limitations Comments pt is able to complete ROM however has pain with thumb abduction, and wrist radial and ulnar deviation PT-OP-M Strength Start: 08/11/22 14:22 Freq: Status: Active Protocol: Document 08/11/22 14:30 [facility] (Rec: 08/11/22 17:08 [facility] [id number]) Elbow/Forearm Strength Elbow and Forearm Manual Muscle Testing Right Flexion (C6) 3 Fair Extension (C7) 3 Fair Pronation 3 Fair Supination 3 Fair Comments pain with resisted forearm movement PT-OP-T Assessment and Plan Start: 08/11/22 14:22 Freq: Status: Active Protocol: Document 08/11/22 14:30 [facility] (Rec: 08/11/22 16:34 [facility] [id number]) Physical Therapy Assessment Rehab Potential Rehabilitation Potential Excellent Evaluation Complexity Number of Personal Factors/Comorbidities 0 Number of Body Systems Impaired 1-2 Clinical Presentation at Evaluation Stable Impairments Impairments Activity Tolerance,Functional Activities,Functional Mobility ,Pain,Soft Tissue Mobility, Tone Other Impairments pt has increased pain with mouse use at work Goals Four Impairment Restictions in the soft tissue of the scalenes, upper trapezius, and pectoralis minor Short Term Goal (STG) Pt is educated in a HEP for cervical and anterior pec minor stretching Three Impairment + ULTT for median nerve tightness Shelter Goal (LTG) Karla test negative for ULTT for the median nerve and is independent with a home program for nerve and tendon gliding LTG Duration 12 weeks Two Impairment myofascial restrictions and guarding in the common extension tendon of the right forearm and in the thumb abductor pollicus longus and extensor pollicus brevis. Global Security Architect Goal (LTG) Karla presents with improvements in myofascial mobility of the forearm and thumb. She has no pain with stretch to the common extensor tendon or over with abduction and flexion of the right thumb LTG Duration 12 weeks One Impairment right sided wrist and thumb pain that limits ADL's and computer work Shelter Goal (LTG) Karla reports a overall reduction in right sided thumb and wrist pain and is able to reduce use of the wrist splint with improved pain control LTG Duration 12 weeks Assessment Summary Assessment Karla is a 47 year old female referred to PT for c/o right sided wrist pain and thumb pain that started in April 2022. 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 She has since ordered a new mouse and she feels it is better but she is still experiencing the pain. She describes her pain over the abductor pollicus longus and extensor pollicus brevis over her thumb. She reports pain with stretching these tendons. She also has pain in the common extensor tendon and in the dorsum of the wrist . She recently was given a wrist splint and she feels this is helping. She is sleeping in it as well as wearing it during the day. With exam today Karla is tender to palpation over both the common extensor tendon on the right and she has pain with thumb adduction as well as with palpation over the abductor pollicus longus and extensor pollicus brevis tendons. She presents with symptoms of De Quervains tenosynovitis. She is also tight in the common extensor muscle and tendons. Karla presents with tightness in the soft tissue of the lateral cervical spine and lacks full cervical sidebending. She is restricted in the pec minor musculature B. I started MFR today over the forearm common extensor tendons and Karla was initiated on a stretching program for her wrist and neck . Ice massage was used over the common extensor tendon. Karla tolerated this well and is a good candidate for PT . Physical Therapy Plan Frequency and Duration Frequency of Treatment 2x/Week Duration of treatment (weeks) 12 Plan of Care Start Date 08/11/22 Plan of Care End Date 11/03/22 Therapeutic Interventions Therapeutic Interventions Home Exercise Program,Manual Therapy,Self-Care/Home Management,Soft Tissue Mobilization,Therapeutic Exercises Modalities Cold Pack/Ice Massage Next Visit Focus/Plan Next Note Type Treatment Note Next Visit Plan MFR technique for the common wrist extensor tendons and forearm, stretches for the right thumb, manual stretches and MFR for the neck and pec minor B
--- NOTE | 2022-08-11 17:10 | PT.OPPOC ---
Physical, Occupational & Speech Therapy At [facility] Current Diagnoses Radial styloid tenosynovitis [de Quervain] (08/11/22) Other synovitis and tenosynovitis, right hand (08/11/22) Visit Care Team Role Provider Type ALY Hector Attending Provider Advanced Rumper Family Provider Primary Care Provider Referring Provider Specialty: Family Practice Address: [address] [place] [address], [facility] [place], [facility] Email: [email or web address] Plan Of Care PT-OP-T Assessment and Plan Start: 08/11/22 14:22 Freq: Status: Active Protocol: Document 08/11/22 14:30 [facility] (Rec: 08/11/22 16:34 [facility] [id number]) Physical Therapy Assessment Rehab Potential Rehabilitation Potential Excellent Evaluation Complexity Number of Personal Factors/Comorbidities 0 Number of Body Systems Impaired 1-2 Clinical Presentation at Evaluation Stable Impairments Impairments Activity Tolerance,Functional Activities,Functional Mobility ,Pain,Soft Tissue Mobility, Tone Other Impairments pt has increased pain with mouse use at work Goals Four Impairment Restrictions in the soft tissue of the scalenes, upper trapezius, and pectoralis minor Short Term Goal (STG) Pt is educated in a HEP for cervical and anterior pec minor stretching Three Impairment + ULTT for median nerve tightness Middle School Combination Teacher Goal (LTG) Karla test negative for ULTT for the median nerve and is independent with a home program for nerve and tendon gliding LTG Duration 12 weeks Two Impairment myofascial restrictions and guarding in the common extension tendon of the right forearm and in the thumb abductor pollicus longus and extensor pollicus brevis. Long-Term Goal (LTG) Karla presents with improvements in myofascial mobility of the forearm and thumb. She has no pain with stretch to the common extensor tendon or over with abduction and flexion of the right thumb LTG Duration 12 weeks One Impairment right sided wrist and thumb pain that limits ADL's and computer work [employer] Combination Teacher Goal (LTG) Karla reports a overall reduction in right sided thumb and wrist pain and is able to reduce use of the wrist splint with improved pain control LTG Duration 12 weeks Assessment Summary Assessment Karla is a 47 year old female referred to PT for c/o right sided wrist pain and thumb pain that started in April 2022. 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 She has since ordered a new mouse and she feels it is better but she is still experiencing the pain. She describes her pain over the abductor pollicus longus and extensor pollicus brevis over her thumb. She reports pain with stretching these tendons. She also has pain in the common extensor tendon and in the dorsum of the wrist . She recently was given a wrist splint and she feels this is helping. She is sleeping in it as well as wearing it during the day. With exam today Karla is tender to palpation over both the common extensor tendon on the right and she has pain with thumb adduction as well as with palpation over the abductor pollicus longus and extensor pollicus brevis tendons. She presents with symptoms of De Quervains tenosynovitis. She is also tight in the common extensor muscle and tendons. Karla presents with tightness in the soft tissue of the lateral cervical spine and lacks full cervical side bending. She is restricted in the pec minor musculature B. I started MFR today over the forearm common extensor tendons and Karla was initiated on a stretching program for her wrist and neck . Ice massage was used over the common extensor tendon. Karla tolerated this well and is a good candidate for PT . Physical Therapy Plan Frequency and Duration Frequency of Treatment 2x/Week Duration of treatment (weeks) 12 Plan of Care Start Date 08/11/22 Plan of Care End Date 11/03/22 Therapeutic Interventions Therapeutic Interventions Home Exercise Program,Manual Therapy,Self-Care/Home Management,Soft Tissue Mobilization,Therapeutic Exercises Modalities Cold Pack/Ice Massage Next Visit Focus/Plan Next Note Type Treatment Note Next Visit Plan MFR technique for the common wrist extensor tendons and forearm, stretches for the right thumb, manual stretches and MFR for the neck and pec minor B Plan of Care Dates Plan of Care Start Date 08/11/22 Plan of Care End Date 11/03/22 Electronically Signed by: Melody Zimmerman, PT 08/11/22 9927 If you are in agreement with this Plan of Care, please return a signed and dated copy. I have reviewed this Plan of Care and certify that the skilled therapy services above are required to meet the patient?s needs. Physician Signature Date Printed Name and Credentials Clinical Instructor Signature Printed Name and Credentials
--- NOTE | 2022-08-20 17:12 | PT.OTN ---
Current Diagnoses Radial styloid tenosynovitis [de Quervain] (08/20/22) Other synovitis and tenosynovitis, right hand (08/20/22) Physical Therapy Treatment Note PT-OP-A Visit Information Start: 08/11/22 14:22 Freq: Status: Active Protocol: Document 08/20/22 13:46 [facility] (Rec: 08/20/22 14:35 [facility] [id number]) Out-Patient Physical Therapy Visit Information Visit Information Visit Type Treatment Note Visit Start Time 13:45 Visit Stop Time 14:30 Total Visit Minutes 45 Visit Number 2 PT-OP-B Current Condition Start: 08/11/22 14:22 Freq: Status: Active Protocol: Document 08/11/22 14:30 [facility] (Rec: 08/11/22 15:44 [facility] [id number]) Current Condition History of Current Condition Onset Date April 2022 History of Current Condition Symptoms of wrist and thumb pain started around 2021, she had started lifting gentle weights and also has to pick her dog out of her car. After winter break it was bothering her more. She just ordered a low profile mouse that is cordless and this has helped. If she bends her wrists at night she will get elbow pain. She is wearing a splint since Jun 23 She has a sit-stand desk for work but she works from home half the time witout a sit stand. She also feels like she has neck tightness more on the right side. The splint is helping and she finds her self wearing it most of the time Treatment Goals Patient/Caregiver Goals Pts goals include eliminating pain in her thumb and wrist Current Functional Impairments (Reported) Functional Limitations- ADL's pain with activities that include picking up heavy objects, moderate difficulty getting in and out of the bathtub and putting on shoes and socks Functional Limitations- Work/School pt describes moderate difficulty with house hold and work related activity PT-OP-C Subjective Start: 08/11/22 14:22 Freq: Status: Active Protocol: Document 08/20/22 13:46 [facility] (Rec: 08/20/22 14:35 [facility] [id number]) OP-PT Subjective Patient Comments Patient Comments pt notes she was sore in her wrist from all the skiing she did this weekend PT-OP-F Manual Assessment Start: 08/11/22 14:22 Freq: Status: Active Protocol: Document 08/11/22 14:30 [facility] (Rec: 08/11/22 16:30 [facility] [id number]) Manual Assessments Soft Tissue Assessment Soft Tissue Mobility Assessment myofascial restrictions across the common wrist extensor tendons on the right, tightness in the R thumb abductor pollicus longus and extensor pollicus brevis, tightness in B pec minor muscles, scalenes and upper trapezius Other Manual Assessments Other Manual Assessments + ULTT for median nerve and radial nerve on the right PT-OP-J Posture/Palpation/Skin Start: 08/11/22 14:22 Freq: Status: Active Protocol: Document 08/11/22 14:30 [facility] (Rec: 08/11/22 15:44 [facility] [id number]) Palpation Assessment Location abductor pollicus longus and extensor pollicus brevis of the right wrist Palpation Details tenderness in the above tendons and pain increases with stretch to the tendons PT-OP-K Range of Motion Start: 08/11/22 14:22 Freq: Status: Active Protocol: Document 08/11/22 14:30 [facility] (Rec: 08/11/22 16:33 [facility] [id number]) Cervical Spine Range of Motion Cervical Spine Passive Testing Position Supine Lateral Flexion Left 10 Lateral Flexion Right 10 ROM Limitations Soft Tissue Tightness Comments pt is restricted in her scalenes and upper trapezius and lacks ROM into cervical sidebending due to tightness and guarding Elbow/Forearm Range of Motion Elbow/Forearm right Elbow/Forearm ROM WFL Yes Comments pain at end range elbow extension with wrist flexion stretch Wrist Goniometric Range of Motion Wrist Right Wrist ROM WFL Yes ROM Limitations Comments pt is able to complete ROM however has pain with thumb abduction, and wrist radial and ulnar deviation PT-OP-M Strength Start: 08/11/22 14:22 Freq: Status: Active Protocol: Document 08/11/22 14:30 [facility] (Rec: 08/11/22 17:08 [facility] [id number]) Elbow/Forearm Strength Elbow and Forearm Manual Muscle Testing Right Flexion (C6) 3 Fair Extension (C7) 3 Fair Pronation 3 Fair Supination 3 Fair Comments pain with resisted forearm movement PT-OP-Q Treatments Start: 08/20/22 17:10 Freq: Status: Active Protocol: Document 08/20/22 17:10 [facility] (Rec: 08/20/22 17:12 [facility] [id number]) Therapeutic Exercises Supine Exercises thumb abductor stretch Reps/Minutes hold 1-2 min common wrist extensor stretch Reps/Minutes hold 1-2 min supine foam roll stretch Comments open book, snow angels, dutch arms, wrist pumping Manual Therapy Treatment Soft Tissue Mobilization MFR right forearm Mobilization Type Instrument Assisted Body Position Supine Nerve Glides 1 Nerve median, radian, ulnar nerve glides Body Position Hooklying Comments median was the tightness of the three nerves PT-OP-R Modalities Start: 08/20/22 17:10 Freq: Status: Active Protocol: Document 08/20/22 17:10 [facility] (Rec: 08/20/22 17:12 [facility] [id number]) Hot Pack/Cold Pack Treatment Ice Massage Location right common extensor tendon Patient Position Hooklying Treatment Duration (minutes) 5 PT-OP-T Assessment and Plan Start: 08/11/22 14:22 Freq: Status: Active Protocol: Document 08/20/22 13:46 [facility] (Rec: 08/20/22 14:35 [facility] [id number]) Physical Therapy Assessment Assessment Summary Assessment pt was instructed in foam roll stretches that she could really feel today to open up her chest, she was also shown nerve glides. She tolerated this well. Her left side felt tighter than her right after the manual work on her right arm Physical Therapy Plan Frequency and Duration Frequency of Treatment 2x/Week Duration of treatment (weeks) 12 Plan of Care Start Date 08/11/22 Plan of Care End Date 11/03/22 Next Visit Focus/Plan Next Note Type Treatment Note Next Visit Plan MFR technique for the common wrist extensor tendons and forarm, stetches for the right thumb, manual stretches and MFR for the neck and pec minor B
--- NOTE | 2022-08-25 17:06 | PT.OTN ---
Current Diagnoses Radial styloid tenosynovitis [de Quervain] (08/25/22) Other synovitis and tenosynovitis, right hand (08/25/22) Physical Therapy Treatment Note PT-OP-A Visit Information Start: 08/11/22 14:22 Freq: Status: Active Protocol: Document 08/25/22 15:58 [facility] (Rec: 08/25/22 17:04 [facility] [id number]) Out-Patient Physical Therapy Visit Information Visit Information Visit Type Treatment Note Visit Start Time 16:00 Visit Stop Time 16:50 Total Visit Minutes 50 Visit Number 3 PT-OP-B Current Condition Start: 08/11/22 14:22 Freq: Status: Active Protocol: Document 08/11/22 14:30 [facility] (Rec: 08/11/22 15:44 [facility] [id number]) Current Condition History of Current Condition Onset Date April 2022 History of Current Condition Symptoms of wrist and thumb pain started around 2021, she had started lifting gentle weights and also has to pick her dog out of her car. After winter break it was bothering her more. She just ordered a low profile mouse that is cordless and this has helped. If she bends her wrists at night she will get elbow pain. She is wearing a splint since Jun 23 She has a sit-stand desk for work but she works from home half the time witout a sit stand. She also feels like she has neck tightness more on the right side. The splint is helping and she finds her self wearing it most of the time Treatment Goals Patient/Caregiver Goals Pts goals include eliminating pain in her thumb and wrist Current Functional Impairments (Reported) Functional Limitations- ADL's pain with activities that include picking up heavy objects, moderate difficulty getting in and out of the bathtub and putting on shoes and socks Functional Limitations- Work/School pt describes moderate difficulty with house hold and work related activity PT-OP-C Subjective Start: 08/11/22 14:22 Freq: Status: Active Protocol: Document 08/25/22 15:58 [facility] (Rec: 08/25/22 17:04 [facility] [id number]) OP-PT Subjective Patient Comments Patient Comments pt had a massage on wednesday. She was sore yesterday but better today PT-OP-F Manual Assessment Start: 08/11/22 14:22 Freq: Status: Active Protocol: Document 08/11/22 14:30 [facility] (Rec: 08/11/22 16:30 [facility] [id number]) Manual Assessments Soft Tissue Assessment Soft Tissue Mobility Assessment myofascial restrictions across the common wrist extensor tendons on the right, tightness in the R thumb abductor pollicus longus and extensor pollicus brevis, tightness in B pec minor muscles, scalenes and upper trapezius Other Manual Assessments Other Manual Assessments + ULTT for median nerve and radial nerve on the right PT-OP-J Posture/Palpation/Skin Start: 08/11/22 14:22 Freq: Status: Active Protocol: Document 08/11/22 14:30 [facility] (Rec: 08/11/22 15:44 [facility] [id number]) Palpation Assessment Location abductor pollicus longus and extensor pollicus brevis of the right wrist Palpation Details tenderness in the above tendons and pain increases with stretch to the tendons PT-OP-K Range of Motion Start: 08/11/22 14:22 Freq: Status: Active Protocol: Document 08/11/22 14:30 [facility] (Rec: 08/11/22 16:33 [facility] [id number]) Cervical Spine Range of Motion Cervical Spine Passive Testing Position Supine Lateral Flexion Left 10 Lateral Flexion Right 10 ROM Limitations Soft Tissue Tightness Comments pt is restricted in her scalenes and upper trapezius and lacks ROM into cervical sidebending due to tightness and guarding Elbow/Forearm Range of Motion Elbow/Forearm right Elbow/Forearm ROM WFL Yes Comments pain at end range elbow extension with wrist flexion stretch Wrist Goniometric Range of Motion Wrist Right Wrist ROM WFL Yes ROM Limitations Comments pt is able to complete ROM however has pain with thumb abduction, and wrist radial and ulnar deviation PT-OP-M Strength Start: 08/11/22 14:22 Freq: Status: Active Protocol: Document 08/11/22 14:30 [facility] (Rec: 08/11/22 17:08 [facility] [id number]) Elbow/Forearm Strength Elbow and Forearm Manual Muscle Testing Right Flexion (C6) 3 Fair Extension (C7) 3 Fair Pronation 3 Fair Supination 3 Fair Comments pain with resisted forearm movement PT-OP-Q Treatments Start: 08/20/22 17:10 Freq: Status: Active Protocol: Document 08/25/22 15:58 [facility] (Rec: 08/25/22 17:04 [facility] [id number]) Therapeutic Exercises Supine Exercises thumb abductor stretch Reps/Minutes hold 1-2 min common wrist extensor stretch Reps/Minutes hold 1-2 min supine foam roll stretch Comments open book, snow angels, [place] arms, wrist pumping Manual Therapy Treatment Soft Tissue Mobilization MFR right forearm Mobilization Type Instrument Assisted Body Position Supine Nerve Glides 1 Nerve median, radian, ulnar nerve glides Body Position Hooklying Comments median was the tightness of the three nerves Manual Techniques manual scalene stretch Comments bilateral scalene stretches PT-OP-R Modalities Start: 08/20/22 17:10 Freq: Status: Active Protocol: Document 08/25/22 15:58 [facility] (Rec: 08/25/22 17:04 [facility] [id number]) Hot Pack/Cold Pack Treatment Ice Massage Location right common extensor tendon Patient Position Hooklying Treatment Duration (minutes) 5 PT-OP-T Assessment and Plan Start: 08/11/22 14:22 Freq: Status: Active Protocol: Document 08/25/22 15:58 [facility] (Rec: 08/25/22 17:04 [facility] [id number]) Physical Therapy Assessment Assessment Summary Assessment pt is tolerating the foam roll well has been working on stretching her forearm. I encouraged cervical stretching as well for home. Physical Therapy Plan Frequency and Duration Frequency of Treatment 2x/Week Duration of treatment (weeks) 12 Plan of Care Start Date 08/11/22 Plan of Care End Date 11/03/22 Therapeutic Interventions Therapeutic Interventions Home Exercise Program,Manual Therapy,Self-Care/Home Management,Soft Tissue Mobilization,Therapeutic Exercises Modalities Cold Pack/Ice Massage
--- NOTE | 2022-09-03 12:18 | PT.OTN ---
Current Diagnoses Radial styloid tenosynovitis [de Quervain] (09/01/22) Other synovitis and tenosynovitis, right hand (09/01/22) Physical Therapy Treatment Note PT-OP-A Visit Information Start: 08/11/22 14:22 Freq: Status: Active Protocol: Document 09/01/22 16:10 [facility] (Rec: 09/03/22 12:17 [facility] [id number]) Out-Patient Physical Therapy Visit Information Visit Information Visit Type Treatment Note Visit Start Time 16:10 Visit Stop Time 16:55 Total Visit Minutes 45 Visit Number 4 PT-OP-B Current Condition Start: 08/11/22 14:22 Freq: Status: Active Protocol: Document 08/11/22 14:30 [facility] (Rec: 08/11/22 15:44 [facility] [id number]) Current Condition History of Current Condition Onset Date April 2022 History of Current Condition Symptoms of wrist and thumb pain started around 2021, she had started lifting gentle weights and also has to pick her dog out of her car. After winter break it was bothering her more. She just ordered a low profile mouse that is cordless and this has helped. If she bends her wrists at night she will get elbow pain. She is wearing a splint since Jun 23 She has a sit-stand desk for work but she works from home half the time witout a sit stand. She also feels like she has neck tightness more on the right side. The splint is helping and she finds her self wearing it most of the time Treatment Goals Patient/Caregiver Goals Pts goals include eliminating pain in her thumb and wrist Current Functional Impairments (Reported) Functional Limitations- ADL's pain with activities that include picking up heavy objects, moderate difficulty getting in and out of the bathtub and putting on shoes and socks Functional Limitations- Work/School pt describes moderate difficulty with house hold and work related activity PT-OP-C Subjective Start: 08/11/22 14:22 Freq: Status: Active Protocol: Document 09/01/22 16:10 [facility] (Rec: 09/03/22 12:17 [facility] [id number]) OP-PT Subjective Patient Comments Patient Comments pt reports she is stil feeling the forearm pain but notes when her shoulder was stretched by her it did feel like it helped. PT-OP-F Manual Assessment Start: 08/11/22 14:22 Freq: Status: Active Protocol: Document 08/11/22 14:30 [facility] (Rec: 08/11/22 16:30 [facility] [id number]) Manual Assessments Soft Tissue Assessment Soft Tissue Mobility Assessment myofascial restrictions across the common wrist extensor tendons on the right, tightness in the R thumb abductor pollicus longus and extensor pollicus brevis, tightness in B pec minor muscles, scalenes and upper trapezius Other Manual Assessments Other Manual Assessments + ULTT for median nerve and radial nerve on the right PT-OP-J Posture/Palpation/Skin Start: 08/11/22 14:22 Freq: Status: Active Protocol: Document 08/11/22 14:30 [facility] (Rec: 08/11/22 15:44 [facility] [id number]) Palpation Assessment Location abductor pollicus longus and extensor pollicus brevis of the right wrist Palpation Details tenderness in the above tendons and pain increases with stretch to the tendons PT-OP-K Range of Motion Start: 08/11/22 14:22 Freq: Status: Active Protocol: Document 08/11/22 14:30 [facility] (Rec: 08/11/22 16:33 [facility] [id number]) Cervical Spine Range of Motion Cervical Spine Passive Testing Position Supine Lateral Flexion Left 10 Lateral Flexion Right 10 ROM Limitations Soft Tissue Tightness Comments pt is restricted in her scalenes and upper trapezius and lacks ROM into cervical sidebending due to tightness and guarding Elbow/Forearm Range of Motion Elbow/Forearm right Elbow/Forearm ROM WFL Yes Comments pain at end range elbow extension with wrist flexion stretch Wrist Goniometric Range of Motion Wrist Right Wrist ROM WFL Yes ROM Limitations Comments pt is able to complete ROM however has pain with thumb abduction, and wrist radial and ulnar deviation PT-OP-M Strength Start: 08/11/22 14:22 Freq: Status: Active Protocol: Document 08/11/22 14:30 [facility] (Rec: 08/11/22 17:08 [facility] [id number]) Elbow/Forearm Strength Elbow and Forearm Manual Muscle Testing Right Flexion (C6) 3 Fair Extension (C7) 3 Fair Pronation 3 Fair Supination 3 Fair Comments pain with resisted forearm movement PT-OP-Q Treatments Start: 08/20/22 17:10 Freq: Status: Active Protocol: Document 09/01/22 16:10 [facility] (Rec: 09/03/22 12:17 [facility] [id number]) Therapeutic Exercises Supine Exercises common wrist extensor stretch Reps/Minutes hold 1-2 min supine foam roll stretch Comments open book, snow angels, citizen [place] arms, wrist pumping Standing Exercises standing chest stretch in the door way Reps/Minutes hold 1-2 min Manual Therapy Treatment Nerve Glides 1 Nerve median, radian, ulnar nerve glides Body Position Hooklying Comments median was the tightness of the three nerves Manual Techniques manual pec minor stretching Comments manual MFR to the pec minor and manual pec minor stretching manual scalene stretch Comments bilateral scalene stretches PT-OP-R Modalities Start: 08/20/22 17:10 Freq: Status: Active Protocol: Document 09/01/22 16:10 [facility] (Rec: 09/03/22 12:17 [facility] [id number]) Hot Pack/Cold Pack Treatment Ice Massage Location right common extensor tendon Patient Position Hooklying Treatment Duration (minutes) 5 PT-OP-T Assessment and Plan Start: 08/11/22 14:22 Freq: Status: Active Protocol: Document 09/01/22 16:10 [facility] (Rec: 09/03/22 12:17 [facility] [id number]) Physical Therapy Assessment Assessment Summary Assessment I worked more on the neck today with stretching as well as pec minor release. We added standing stretching in the doorway as well. She is wearing her braces for activity at home. Karla continues to feel the pain especially in her thumbs. Continue with treatment focus on the cervical spine Physical Therapy Plan Frequency and Duration Frequency of Treatment 2x/Week Duration of treatment (weeks) 12 Plan of Care Start Date 08/11/22 Plan of Care End Date 11/03/22 Therapeutic Interventions Therapeutic Interventions Home Exercise Program,Manual Therapy,Self-Care/Home Management,Soft Tissue Mobilization,Therapeutic Exercises Modalities Cold Pack/Ice Massage
--- NOTE | 2022-09-09 13:54 | PT.OTN ---
Current Diagnoses Radial styloid tenosynovitis [de Quervain] (09/09/22) Other synovitis and tenosynovitis, right hand (09/09/22) Physical Therapy Treatment Note PT-OP-A Visit Information Start: 08/11/22 14:22 Freq: Status: Active Protocol: Document 09/09/22 12:49 [facility] (Rec: 09/09/22 13:54 [facility] [id number]) Out-Patient Physical Therapy Visit Information Visit Information Visit Type Treatment Note Visit Start Time 12:50 Visit Stop Time 13:35 Total Visit Minutes 45 Visit Number 5 PT-OP-B Current Condition Start: 08/11/22 14:22 Freq: Status: Active Protocol: Document 08/11/22 14:30 [facility] (Rec: 08/11/22 15:44 [facility] [id number]) Current Condition History of Current Condition Onset Date April 2022 History of Current Condition Symptoms of wrist and thumb pain started around 2021, she had started lifting gentle weights and also has to pick her dog out of her car. After winter it was bothering her more. She just ordered a low profile mouse that is cordless and this has helped. If she bends her wrists at night she will get elbow pain. She is wearing a splint since Jun 23 She has a sit-stand desk for work but she works from home half the time witout a sit stand. She also feels like she has neck tightness more on the right side. The splint is helping and she finds her self wearing it most of the time Treatment Goals Patient/Caregiver Goals Pts goals include eliminating pain in her thumb and wrist Current Functional Impairments (Reported) Functional Limitations- ADL's pain with activities that include picking up heavy objects, moderate difficulty getting in and out of the bathtub and putting on shoes and socks Functional Limitations- Work/School pt describes moderate difficulty with house hold and work related activity PT-OP-C Subjective Start: 08/11/22 14:22 Freq: Status: Active Protocol: Document 09/09/22 12:49 [facility] (Rec: 09/09/22 13:54 [facility] [id number]) OP-PT Subjective Patient Comments Patient Comments pt is feeling like things are slowly improving and she doesn 't feel she needs her wrist splints all the time. PT-OP-F Manual Assessment Start: 08/11/22 14:22 Freq: Status: Active Protocol: Document 08/11/22 14:30 [facility] (Rec: 08/11/22 16:30 [facility] [id number]) Manual Assessments Soft Tissue Assessment Soft Tissue Mobility Assessment myofascial restrictions across the common wrist extensor tendons on the right, tightness in the R thumb abductor pollicus longus and extensor pollicus brevis, tightness in B pec minor muscles, scalenes and upper trapezius Other Manual Assessments Other Manual Assessments + ULTT for median nerve and radial nerve on the right PT-OP-J Posture/Palpation/Skin Start: 08/11/22 14:22 Freq: Status: Active Protocol: Document 08/11/22 14:30 [facility] (Rec: 08/11/22 15:44 [facility] [id number]) Palpation Assessment Location abductor pollicus longus and extensor pollicus brevis of the right wrist Palpation Details tenderness in the above tendons and pain increases with stretch to the tendons PT-OP-K Range of Motion Start: 08/11/22 14:22 Freq: Status: Active Protocol: Document 08/11/22 14:30 [facility] (Rec: 08/11/22 16:33 [facility] [id number]) Cervical Spine Range of Motion Cervical Spine Passive Testing Position Supine Lateral Flexion Left 10 Lateral Flexion Right 10 ROM Limitations Soft Tissue Tightness Comments pt is restricted in her scalenes and upper trapezius and lacks ROM into cervical sidebending due to tightness and guarding Elbow/Forearm Range of Motion Elbow/Forearm right Elbow/Forearm ROM WFL Yes Comments pain at end range elbow extension with wrist flexion stretch Wrist Goniometric Range of Motion Wrist Right Wrist ROM WFL Yes ROM Limitations Comments pt is able to complete ROM however has pain with thumb abduction, and wrist radial and ulnar deviation PT-OP-M Strength Start: 08/11/22 14:22 Freq: Status: Active Protocol: Document 08/11/22 14:30 [facility] (Rec: 08/11/22 17:08 [facility] [id number]) Elbow/Forearm Strength Elbow and Forearm Manual Muscle Testing Right Flexion (C6) 3 Fair Extension (C7) 3 Fair Pronation 3 Fair Supination 3 Fair Comments pain with resisted forearm movement PT-OP-Q Treatments Start: 08/20/22 17:10 Freq: Status: Active Protocol: Document 09/09/22 12:49 [facility] (Rec: 09/09/22 13:54 [facility] [id number]) Therapeutic Exercises Supine Exercises thumb abductor stretch Reps/Minutes hold 1-2 min common wrist extensor stretch Reps/Minutes hold 1-2 min supine foam roll stretch Comments open book, snow angels, bulgarian arms, wrist pumping Manual Therapy Treatment Soft Tissue Mobilization manual thumb stretching Comments working into abduction and extension, TFM over thumb extensors pec minor release Body Location B pec minor Mobilization Type Myofascial Release MFR right forearm Body Position Supine Comments MFR techniques for common flexor as well as extensor tendons Nerve Glides 1 Nerve median, radian, ulnar nerve glides Body Position Hooklying Comments median was the tightness of the three nerves Manual Techniques manual pec minor stretching Comments manual MFR to the pec minor and manual pec minor stretching PT-OP-R Modalities Start: 08/20/22 17:10 Freq: Status: Active Protocol: Document 09/01/22 16:10 [facility] (Rec: 09/03/22 12:17 [facility] [id number]) Hot Pack/Cold Pack Treatment Ice Massage Location right common extensor tendon Patient Position Hooklying Treatment Duration (minutes) 5 PT-OP-T Assessment and Plan Start: 08/11/22 14:22 Freq: Status: Active Protocol: Document 09/09/22 12:49 [facility] (Rec: 09/09/22 13:54 [facility] [id number]) Physical Therapy Assessment Assessment Summary Assessment Karla saw chiropractic today to work on her neck especially C1-2, I worked on releasing pec minor, nerve glides, and manual stretches for her thumb and forearm. She has decreased tension in the common extensor tendon now compared to last visit. drier tender over the thumb extensor tendons and ULTT still tight and + at end range Physical Therapy Plan Frequency and Duration Frequency of Treatment 2x/Week Duration of treatment (weeks) 12 Plan of Care Start Date 08/11/22 Plan of Care End Date 11/03/22 Therapeutic Interventions Therapeutic Interventions Home Exercise Program,Manual Therapy,Self-Care/Home Management,Soft Tissue Mobilization,Therapeutic Exercises Modalities Cold Pack/Ice Massage
--- NOTE | 2022-09-22 16:34 | PT.OTN ---
Current Diagnoses Radial styloid tenosynovitis [de Quervain] (09/22/22) Other synovitis and tenosynovitis, right hand (09/22/22) Physical Therapy Treatment Note PT-OP-A Visit Information Start: 08/11/22 14:22 Freq: Status: Active Protocol: Document 09/22/22 13:46 [facility] (Rec: 09/22/22 16:32 [facility] [id number]) Out-Patient Physical Therapy Visit Information Visit Information Visit Type Treatment Note Visit Start Time 13:45 Visit Stop Time 14:30 Total Visit Minutes 45 Visit Number 6 PT-OP-B Current Condition Start: 08/11/22 14:22 Freq: Status: Active Protocol: Document 08/11/22 14:30 [facility] (Rec: 08/11/22 15:44 [facility] [id number]) Current Condition History of Current Condition Onset Date April 2022 History of Current Condition Symptoms of wrist and thumb pain started around 2021, she had started lifting gentle weights and also has to pick her dog out of her car. After winter it was bothering her more. She just ordered a low profile mouse that is cordless and this has helped. If she bends her wrists at night she will get elbow pain. She is wearing a splint since Jun 23 She has a sit-stand desk for work but she works from home half the time witout a sit stand. She also feels like she has neck tightness more on the right side. The splint is helping and she finds her self wearing it most of the time Treatment Goals Patient/Caregiver Goals Pts goals include eliminating pain in her thumb and wrist Current Functional Impairments (Reported) Functional Limitations- ADL's pain with activities that include picking up heavy objects, moderate difficulty getting in and out of the bathtub and putting on shoes and socks Functional Limitations- Work/School pt describes moderate difficulty with house hold and work related activity PT-OP-C Subjective Start: 08/11/22 14:22 Freq: Status: Active Protocol: Document 09/22/22 13:46 [facility] (Rec: 09/22/22 16:32 [facility] [id number]) OP-PT Subjective Patient Comments Patient Comments pt reports she is feeling overall improvement and hasn't had to wear her wrist splints the past few weeks. PT-OP-F Manual Assessment Start: 08/11/22 14:22 Freq: Status: Active Protocol: Document 08/11/22 14:30 [facility] (Rec: 08/11/22 16:30 [facility] [id number]) Manual Assessments Soft Tissue Assessment Soft Tissue Mobility Assessment myofascial restrictions across the common wrist extensor tendons on the right, tightness in the R thumb abductor pollicus longus and extensor pollicus brevis, tightness in B pec minor muscles, scalenes and upper trapezius Other Manual Assessments Other Manual Assessments + ULTT for median nerve and radial nerve on the right PT-OP-J Posture/Palpation/Skin Start: 08/11/22 14:22 Freq: Status: Active Protocol: Document 08/11/22 14:30 [facility] (Rec: 08/11/22 15:44 [facility] [id number]) Palpation Assessment Location abductor pollicus longus and extensor pollicus brevis of the right wrist Palpation Details tenderness in the above tendons and pain increases with stretch to the tendons PT-OP-K Range of Motion Start: 08/11/22 14:22 Freq: Status: Active Protocol: Document 08/11/22 14:30 [facility] (Rec: 08/11/22 16:33 [facility] [id number]) Cervical Spine Range of Motion Cervical Spine Passive Testing Position Supine Lateral Flexion Left 10 Lateral Flexion Right 10 ROM Limitations Soft Tissue Tightness Comments pt is restricted in her scalenes and upper trapezius and lacks ROM into cervical sidebending due to tightness and guarding Elbow/Forearm Range of Motion Elbow/Forearm right Elbow/Forearm ROM WFL Yes Comments pain at end range elbow extension with wrist flexion stretch Wrist Goniometric Range of Motion Wrist Right Wrist ROM WFL Yes ROM Limitations Comments pt is able to complete ROM however has pain with thumb abduction, and wrist radial and ulnar deviation PT-OP-M Strength Start: 08/11/22 14:22 Freq: Status: Active Protocol: Document 08/11/22 14:30 [facility] (Rec: 08/11/22 17:08 [facility] [id number]) Elbow/Forearm Strength Elbow and Forearm Manual Muscle Testing Right Flexion (C6) 3 Fair Extension (C7) 3 Fair Pronation 3 Fair Supination 3 Fair Comments pain with resisted forearm movement PT-OP-Q Treatments Start: 08/20/22 17:10 Freq: Status: Active Protocol: Document 09/22/22 13:46 [facility] (Rec: 09/22/22 16:32 [facility] [id number]) Therapeutic Exercises Supine Exercises supine foam roll stretch Comments open book, snow angels, afghan arms, wrist pumping Sidelying Exercises sidelying shoulder ER Reps/Minutes 2 x 10 reps Standing Exercises standing shoulder ER Reps/Minutes 3 x 10 with level 1 TB Comments pt tolerated this better than sidelying Manual Therapy Treatment Soft Tissue Mobilization pec minor release Body Location B pec minor Mobilization Type Myofascial Release MFR right forearm Body Position Supine Comments MFR techniques for common flexor as well as extensor tendons Nerve Glides 1 Nerve median, radian, ulnar nerve glides Body Position Hooklying Comments median was the tightness of the three nerves Manual Techniques manual pec minor stretching Comments manual MFR to the pec minor and manual pec minor stretching manual scalene stretch Comments bilateral scalene stretches PT-OP-R Modalities Start: 08/20/22 17:10 Freq: Status: Active Protocol: Document 09/01/22 16:10 [facility] (Rec: 09/03/22 12:17 [facility] [id number]) Hot Pack/Cold Pack Treatment Ice Massage Location right common extensor tendon Patient Position Hooklying Treatment Duration (minutes) 5 PT-OP-T Assessment and Plan Start: 08/11/22 14:22 Freq: Status: Active Protocol: Document 09/22/22 13:46 [facility] (Rec: 09/22/22 16:32 [facility] [id number]) Physical Therapy Assessment Goals Four Impairment 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 Trauma Nurse Goal (LTG) Karla presents with improvements in myofascial mobility of the forearm and thumb. She has no pain with stretch to the common extensor tendon or over with abduction and flexion of the right thumb good progress LTG Duration 12 weeks One Impairment right sided wrist and thumb pain that limits ADL's and computer work [facility]cc Goal (LTG) Karla reports a overall reduction in right sided thumb and wrist pain and is able to reduce use of the wrist splint with improved pain control good progress LTG Duration 12 weeks Assessment Summary Assessment pt is making good progress, she is still tight in her scalenes and pec minor. I did add in shoulder ER today and she is weak with her rotators. She would benefit from continued PT to add in stabilization Physical Therapy Plan Frequency and Duration Frequency of Treatment 2x/Week Duration of treatment (weeks) 12 Plan of Care Start Date 08/11/22 Plan of Care End Date 11/03/22 Therapeutic Interventions Therapeutic Interventions Home Exercise Program,Manual Therapy,Self-Care/Home Management,Soft Tissue Mobilization,Therapeutic Exercises Modalities Cold Pack/Ice Massage Next Visit Focus/Plan Next Note Type Treatment Note
--- NOTE | 2022-09-30 13:55 | PT.OTN ---
Current Diagnoses Radial styloid tenosynovitis [de Quervain] (09/30/22) Other synovitis and tenosynovitis, right hand (09/30/22) Physical Therapy Treatment Note PT-OP-A Visit Information Start: 08/11/22 14:22 Freq: Status: Active Protocol: Document 09/30/22 12:50 [facility] (Rec: 09/30/22 13:55 [facility] [id number]) Out-Patient Physical Therapy Visit Information Visit Information Visit Start Time 12:45 Visit Stop Time 13:30 Total Visit Minutes 45 Visit Number 7 PT-OP-B Current Condition Start: 08/11/22 14:22 Freq: Status: Active Protocol: Document 08/11/22 14:30 [facility] (Rec: 08/11/22 15:44 [facility] [id number]) Current Condition History of Current Condition Onset Date April 2022 History of Current Condition Symptoms of wrist and thumb pain started around 2021, she had started lifting gentle weights and also has to pick her dog out of her car. After winter it was bothering her more. She just ordered a low profile mouse that is cordless and this has helped. If she bends her wrists at night she will get elbow pain. She is wearing a splint since Jun 23 She has a sit-stand desk for work but she works from home half the time witout a sit stand. She also feels like she has neck tightness more on the right side. The splint is helping and she finds her self wearing it most of the time Treatment Goals Patient/Caregiver Goals Pts goals include eliminating pain in her thumb and wrist Current Functional Impairments (Reported) Functional Limitations- ADL's pain with activities that include picking up heavy objects, moderate difficulty getting in and out of the bathtub and putting on shoes and socks Functional Limitations- Work/School pt describes moderate difficulty with house hold and work related activity PT-OP-C Subjective Start: 08/11/22 14:22 Freq: Status: Active Protocol: Document 09/30/22 12:50 [facility] (Rec: 09/30/22 13:55 [facility] [id number]) OP-PT Subjective Patient Comments Patient Comments pt notes she continues to feel better and has not had to wear her wrist spints. She does feel tighter on her left side of her pec and forearm today. She has still been having migranes and has had her work on her neck which has helped. She does have a home traction unit but its a over the door unit and she has not tried it yet due to her door height. Patient Reported Progress Improving PT-OP-F Manual Assessment Start: 08/11/22 14:22 Freq: Status: Active Protocol: Document 08/11/22 14:30 [facility] (Rec: 08/11/22 16:30 [facility] [id number]) Manual Assessments Soft Tissue Assessment Soft Tissue Mobility Assessment myofascial restrictions across the common wrist extensor tendons on the right, tightness in the R thumb abductor pollicus longus and extensor pollicus brevis, tightness in B pec minor muscles, scalenes and upper trapezius Other Manual Assessments Other Manual Assessments + ULTT for median nerve and radial nerve on the right PT-OP-J Posture/Palpation/Skin Start: 08/11/22 14:22 Freq: Status: Active Protocol: Document 08/11/22 14:30 [facility] (Rec: 08/11/22 15:44 [facility] [id number]) Palpation Assessment Location abductor pollicus longus and extensor pollicus brevis of the right wrist Palpation Details tenderness in the above tendons and pain increases with stretch to the tendons PT-OP-K Range of Motion Start: 08/11/22 14:22 Freq: Status: Active Protocol: Document 08/11/22 14:30 [facility] (Rec: 08/11/22 16:33 [facility] [id number]) Cervical Spine Range of Motion Cervical Spine Passive Testing Position Supine Lateral Flexion Left 10 Lateral Flexion Right 10 ROM Limitations Soft Tissue Tightness Comments pt is restricted in her scalenes and upper trapezius and lacks ROM into cervical sidebending due to tightness and guarding Elbow/Forearm Range of Motion Elbow/Forearm right Elbow/Forearm ROM WFL Yes Comments pain at end range elbow extension with wrist flexion stretch Wrist Goniometric Range of Motion Wrist Right Wrist ROM WFL Yes ROM Limitations Comments pt is able to complete ROM however has pain with thumb abduction, and wrist radial and ulnar deviation PT-OP-M Strength Start: 08/11/22 14:22 Freq: Status: Active Protocol: Document 08/11/22 14:30 [facility] (Rec: 08/11/22 17:08 [facility] [id number]) Elbow/Forearm Strength Elbow and Forearm Manual Muscle Testing Right Flexion (C6) 3 Fair Extension (C7) 3 Fair Pronation 3 Fair Supination 3 Fair Comments pain with resisted forearm movement PT-OP-Q Treatments Start: 08/20/22 17:10 Freq: Status: Active Protocol: Document 09/30/22 12:50 [facility] (Rec: 09/30/22 13:55 [facility] [id number]) Manual Therapy Treatment Soft Tissue Mobilization MFR left forearm Comments MFR left forarm and common extensor tendon pec minor release Body Location left sided pec release Mobilization Type Myofascial Release Nerve Glides 1 Nerve median, radian, ulnar nerve glides Details left side only today Body Position Hooklying Comments median was the tightness of the three nerves Manual Techniques manual pec minor stretching Comments manual MFR to the pec minor and manual pec minor stretching PT-OP-R Modalities Start: 08/20/22 17:10 Freq: Status: Active Protocol: Document 09/01/22 16:10 [facility] (Rec: 09/03/22 12:17 [facility] [id number]) Hot Pack/Cold Pack Treatment Ice Massage Location right common extensor tendon Patient Position Hooklying Treatment Duration (minutes) 5 PT-OP-T Assessment and Plan Start: 08/11/22 14:22 Freq: Status: Active Protocol: Document 09/30/22 12:50 [facility] (Rec: 09/30/22 13:55 [facility] [id number]) Physical Therapy Assessment Assessment Summary Assessment Karla continues to make progress with symptoms. She is still tight in the pec minor region and today I focused on the left side. ULTT is still + at the end range on the left. Physical Therapy Plan Frequency and Duration Frequency of Treatment 2x/Week Duration of treatment (weeks) 12 Plan of Care Start Date 08/11/22 Plan of Care End Date 11/03/22 Therapeutic Interventions Therapeutic Interventions Home Exercise Program,Manual Therapy,Self-Care/Home Management,Soft Tissue Mobilization,Therapeutic Exercises Modalities Cold Pack/Ice Massage Next Visit Focus/Plan Next Note Type Treatment Note Next Visit Plan continue working on pec minor release, return to work on the neck for stretching to open up the scalenes
--- NOTE | 2022-10-29 16:45 | PT.OPPOC ---
Physical, Occupational & Speech Therapy At [facility] Current Diagnoses Radial styloid tenosynovitis [de Quervain] (10/29/22) Other synovitis and tenosynovitis, right hand (10/29/22) Visit Care Team Role Provider Type ALY Hector Attending Provider Advanced Principal Systems Architect Family Provider Primary Care Provider Referring Provider Specialty: [facility] Address: [address] [place] [address], [facility] [place], [facility] Email: [email or web address] Plan Of Care PT-OP-T Assessment and Plan Start: 08/11/22 14:22 Freq: Status: Active Protocol: Document 10/29/22 16:00 [facility] (Rec: 11/04/22 12:55 [facility] [id number]) Physical Therapy Assessment Goals Four Impairment Restictions in the soft tissue of the scalenes, upper trapezius, and pectoralis minor Short Term Goal (STG) Pt is educated in a HEP for cervical and anterior pec minor stretching GOAL MET Three Impairment + ULTT for median nerve tightness Estate Attorney Goal (LTG) Karla test negative for ULTT for the median nerve and is independent with a home program for nerve and tendon gliding GOOD progress but still + at end range LTG Duration 12 weeks Two Impairment myofascial restrictions and guarding in the common extension tendon of the right forearm and in the thumb abductor pollicus longus and extensor pollicus brevis. Long-Term Goal (LTG) Karla presents with improvements in myofascial mobility of the forearm and thumb. She has no pain with stretch to the common extensor tendon or over with abduction and flexion of the right thumb good progress LTG Duration 12 weeks One Impairment right sided wrist and thumb pain that limits ADL's and computer work Long-Term Goal (LTG) Karla reports a overall reduction in right sided thumb and wrist pain and is able to reduce use of the wrist splint with improved pain control good progress LTG Duration 12 weeks Assessment Summary Assessment Karla is making great overall progress. Her pain levels are significantly reduced and she is no longer needing to wear the splint at night. She has been working on her stretches and exercises . At this point she would like to try to have a couple of visits spread out to work on tightness for after golfing and gardening. She woudl benefit from a few additional visits to reassess the tissue and work on mobility. Physical Therapy Plan Frequency and Duration Frequency of Treatment 2x/Week Duration of treatment (weeks) 12 Plan of Care Start Date 10/29/22 Plan of Care End Date 01/21/23 Next Visit Focus/Plan Next Note Type Treatment Note Next Visit Plan review sidelying shoulder ER and standing rows, continue working pec minor release and ULTT Plan of Care Dates Plan of Care Start Date 10/29/22 Plan of Care End Date 01/21/23 Electronically Signed by: Melody Zimmerman, PT 11/04/22 1669 If you are in agreement with this Plan of Care, please return a signed and dated copy. I have reviewed this Plan of Care and certify that the skilled therapy services above are required to meet the patient?s needs. Physician Signature Date Printed Name and Credentials Clinical Instructor Signature Printed Name and Credentials
--- NOTE | 2022-10-29 16:45 | PT.OPPN ---
Current Diagnoses Radial styloid tenosynovitis [de Quervain] (10/29/22) Other synovitis and tenosynovitis, right hand (10/29/22) Physical Therapy Progress Note PT-OP-A Visit Information Start: 08/11/22 14:22 Freq: Status: Active Protocol: Document 10/29/22 16:00 [facility] (Rec: 11/04/22 12:55 [facility] [id number]) Out-Patient Physical Therapy Visit Information Visit Information Visit Type Treatment Note Visit Start Time 16:00 Visit Stop Time 16:45 Total Visit Minutes 45 Visit Number 9 PT-OP-B Current Condition Start: 08/11/22 14:22 Freq: Status: Active Protocol: Document 08/11/22 14:30 [facility] (Rec: 08/11/22 15:44 [facility] [id number]) Current Condition History of Current Condition Onset Date April 2022 History of Current Condition Symptoms of wrist and thumb pain started around 2021, she had started lifting gentle weights and also has to pick her dog out of her car. After winter it was bothering her more. She just ordered a low profile mouse that is cordless and this has helped. If she bends her wrists at night she will get elbow pain. She is wearing a splint since Jun 23 She has a sit-stand desk for work but she works from home half the time witout a sit stand. She also feels like she has neck tightness more on the right side. The splint is helping and she finds her self wearing it most of the time Treatment Goals Patient/Caregiver Goals Pts goals include eliminating pain in her thumb and wrist Current Functional Impairments (Reported) Functional Limitations- ADL's pain with activities that include picking up heavy objects, moderate difficulty getting in and out of the bathtub and putting on shoes and socks Functional Limitations- Work/School pt describes moderate difficulty with house hold and work related activity PT-OP-C Subjective Start: 08/11/22 14:22 Freq: Status: Active Protocol: Document 10/29/22 16:00 [facility] (Rec: 11/04/22 12:55 [facility] [id number]) OP-PT Subjective Patient Comments Patient Comments Karla reports she is doing much better overall, she still has some left sided tightness following gardening or golfing but can tell she is not as tight as she was and is not in as much pain PT-OP-F Manual Assessment Start: 08/11/22 14:22 Freq: Status: Active Protocol: Document 08/11/22 14:30 [facility] (Rec: 08/11/22 16:30 [facility] [id number]) Manual Assessments Soft Tissue Assessment Soft Tissue Mobility Assessment myofascial restrictions across the common wrist extensor tendons on the right, tightness in the R thumb abductor pollicus longus and extensor pollicus brevis, tightness in B pec minor muscles, scalenes and upper trapezius Other Manual Assessments Other Manual Assessments + ULTT for median nerve and radial nerve on the right PT-OP-J Posture/Palpation/Skin Start: 08/11/22 14:22 Freq: Status: Active Protocol: Document 08/11/22 14:30 [facility] (Rec: 08/11/22 15:44 [facility] [id number]) Palpation Assessment Location abductor pollicus longus and extensor pollicus brevis of the right wrist Palpation Details tenderness in the above tendons and pain increases with stretch to the tendons PT-OP-K Range of Motion Start: 08/11/22 14:22 Freq: Status: Active Protocol: Document 08/11/22 14:30 [facility] (Rec: 08/11/22 16:33 [facility] [id number]) Cervical Spine Range of Motion Cervical Spine Passive Testing Position Supine Lateral Flexion Left 10 Lateral Flexion Right 10 ROM Limitations Soft Tissue Tightness Comments pt is restricted in her scalenes and upper trapezius and lacks ROM into cervical sidebending due to tightness and guarding Elbow/Forearm Range of Motion Elbow/Forearm Measured in Degrees right Elbow/Forearm ROM WFL Yes Comments pain at end range elbow extension with wrist flexion stretch Wrist Goniometric Range of Motion Wrist Measured in Degrees Right Wrist ROM WFL Yes ROM Limitations Comments pt is able to complete ROM however has pain with thumb abduction, and wrist radial and ulnar deviation PT-OP-M Strength Start: 08/11/22 14:22 Freq: Status: Active Protocol: Document 08/11/22 14:30 [facility] (Rec: 08/11/22 17:08 [facility] [id number]) Elbow/Forearm Strength Elbow and Forearm Manual Muscle Testing Right Flexion (C6) 3 Fair Extension (C7) 3 Fair Pronation 3 Fair Supination 3 Fair Comments pain with resisted forearm movement PT-OP-T Assessment and Plan Start: 08/11/22 14:22 Freq: Status: Active Protocol: Document 10/29/22 16:00 [facility] (Rec: 11/04/22 12:55 [facility] [id number]) Physical Therapy Assessment Goals Four Impairment Restictions in the soft tissue of the scalenes, upper trapezius, and pectoralis minor Short Term Goal (STG) Pt is educated in a HEP for cervical and anterior pec minor stretching GOAL MET Three Impairment + ULTT for median nerve tightness Detention Goal (LTG) Karla test negative for ULTT for the median nerve and is independent with a home program for nerve and tendon gliding GOOD progress but still + at end range LTG Duration 12 weeks Two Impairment myofascial restrictions and guarding in the common extension tendon of the right forearm and in the thumb abductor pollicus longus and extensor pollicus brevis. Change Management Coordinator Goal (LTG) Karla presents with improvements in myofascial mobility of the forearm and thumb. She has no pain with stretch to the common extensor tendon or over with abduction and flexion of the right thumb good progress LTG Duration 12 weeks One Impairment right sided wrist and thumb pain that limits ADL's and computer work Change Management Coordinator Goal (LTG) Karla reports a overall reduction in right sided thumb and wrist pain and is able to reduce use of the wrist splint with improved pain control good progress LTG Duration 12 weeks Assessment Summary Assessment Karla is making great overall progress. Her pain levels are significantly reduced and she is no longer needing to wear the splint at night. She has been working on her stretches and exercises . At this point she would like to try to have a couple of visits spread out to work on tightness for after golfing and gardening. She woudl benefit from a few additional visits to reassess the tissue and work on mobility. Physical Therapy Plan Frequency and Duration Frequency of Treatment 2x/Week Duration of treatment (weeks) 12 Plan of Care Start Date 10/29/22 Plan of Care End Date 01/21/23 Next Visit Focus/Plan Next Note Type Treatment Note Next Visit Plan review sidelying shoulder ER and standing rows, continue working pec minor release and ULTT
--- NOTE | 2022-11-04 12:56 | PT.OTN ---
Current Diagnoses Radial styloid tenosynovitis [de Quervain] (10/29/22) Other synovitis and tenosynovitis, right hand (10/29/22) Physical Therapy Treatment Note PT-OP-A Visit Information Start: 08/11/22 14:22 Freq: Status: Active Protocol: Document 10/29/22 16:00 [facility] (Rec: 11/04/22 12:55 [facility] [id number]) Out-Patient Physical Therapy Visit Information Visit Information Visit Type Treatment Note Visit Start Time 16:00 Visit Stop Time 16:45 Total Visit Minutes 45 Visit Number 9 PT-OP-B Current Condition Start: 08/11/22 14:22 Freq: Status: Active Protocol: Document 08/11/22 14:30 [facility] (Rec: 08/11/22 15:44 [facility] [id number]) Current Condition History of Current Condition Onset Date April 2022 History of Current Condition Symptoms of wrist and thumb pain started around 2021, she had started lifting gentle weights and also has to pick her dog out of her car. After winter it was bothering her more. She just ordered a low profile mouse that is cordless and this has helped. If she bends her wrists at night she will get elbow pain. She is wearing a splint since Jun 23 She has a sit-stand desk for work but she works from home half the time witout a sit stand. She also feels like she has neck tightness more on the right side. The splint is helping and she finds her self wearing it most of the time Treatment Goals Patient/Caregiver Goals Pts goals include eliminating pain in her thumb and wrist Current Functional Impairments (Reported) Functional Limitations- ADL's pain with activities that include picking up heavy objects, moderate difficulty getting in and out of the bathtub and putting on shoes and socks Functional Limitations- Work/School pt describes moderate difficulty with house hold and work related activity PT-OP-C Subjective Start: 08/11/22 14:22 Freq: Status: Active Protocol: Document 10/29/22 16:00 [facility] (Rec: 11/04/22 12:55 [facility] [id number]) OP-PT Subjective Patient Comments Patient Comments Karla reports she is doing much better overall, she still has some left sided tightness following gardening or golfing but can tell she is not as tight as she was and is not in as much pain PT-OP-F Manual Assessment Start: 08/11/22 14:22 Freq: Status: Active Protocol: Document 08/11/22 14:30 [facility] (Rec: 08/11/22 16:30 [facility] [id number]) Manual Assessments Soft Tissue Assessment Soft Tissue Mobility Assessment myofascial restrictions across the common wrist extensor tendons on the right, tightness in the R thumb abductor pollicus longus and extensor pollicus brevis, tightness in B pec minor muscles, scalenes and upper trapezius Other Manual Assessments Other Manual Assessments + ULTT for median nerve and radial nerve on the right PT-OP-J Posture/Palpation/Skin Start: 08/11/22 14:22 Freq: Status: Active Protocol: Document 08/11/22 14:30 [facility] (Rec: 08/11/22 15:44 [facility] [id number]) Palpation Assessment Location abductor pollicus longus and extensor pollicus brevis of the right wrist Palpation Details tenderness in the above tendons and pain increases with stretch to the tendons PT-OP-K Range of Motion Start: 08/11/22 14:22 Freq: Status: Active Protocol: Document 08/11/22 14:30 [facility] (Rec: 08/11/22 16:33 [facility] [id number]) Cervical Spine Range of Motion Cervical Spine Passive Testing Position Supine Lateral Flexion Left 10 Lateral Flexion Right 10 ROM Limitations Soft Tissue Tightness Comments pt is restricted in her scalenes and upper trapezius and lacks ROM into cervical sidebending due to tightness and guarding Elbow/Forearm Range of Motion Elbow/Forearm right Elbow/Forearm ROM WFL Yes Comments pain at end range elbow extension with wrist flexion stretch Wrist Goniometric Range of Motion Wrist Right Wrist ROM WFL Yes ROM Limitations Comments pt is able to complete ROM however has pain with thumb abduction, and wrist radial and ulnar deviation PT-OP-M Strength Start: 08/11/22 14:22 Freq: Status: Active Protocol: Document 08/11/22 14:30 [facility] (Rec: 08/11/22 17:08 [facility] [id number]) Elbow/Forearm Strength Elbow and Forearm Manual Muscle Testing Right Flexion (C6) 3 Fair Extension (C7) 3 Fair Pronation 3 Fair Supination 3 Fair Comments pain with resisted forearm movement PT-OP-Q Treatments Start: 08/20/22 17:10 Freq: Status: Active Protocol: Document 10/29/22 16:00 [facility] (Rec: 11/04/22 12:56 [facility] [id number]) Manual Therapy Treatment Soft Tissue Mobilization MFR left forearm Comments MFR left forarm and common extensor tendon pec minor release Body Location B pec release Mobilization Type Myofascial Release Nerve Glides 1 Nerve median, radian, ulnar nerve glides Details bilateral Body Position Hooklying Comments median was the tightness of the three nerves Manual Techniques manual pec minor stretching Comments manual MFR to the pec minor and manual pec minor stretching manual scalene stretch Comments bilateral scalene stretches PT-OP-R Modalities Start: 08/20/22 17:10 Freq: Status: Active Protocol: Document 09/01/22 16:10 [facility] (Rec: 09/03/22 12:17 [facility] [id number]) Hot Pack/Cold Pack Treatment Ice Massage Location right common extensor tendon Patient Position Hooklying Treatment Duration (minutes) 5 PT-OP-T Assessment and Plan Start: 08/11/22 14:22 Freq: Status: Active Protocol: Document 10/29/22 16:00 [facility] (Rec: 11/04/22 12:55 [facility] [id number]) Physical Therapy Assessment Goals Four Impairment Restictions in the soft tissue of the scalenes, upper trapezius, and pectoralis minor Short Term Goal (STG) Pt is educated in a HEP for cervical and anterior pec minor stretching GOAL MET Three Impairment + ULTT for median nerve tightness Group Home Goal (LTG) Karla test negative for ULTT for the median nerve and is independent with a home program for nerve and tendon gliding GOOD progress but still + at end range LTG Duration 12 weeks Two Impairment myofascial restrictions and guarding in the common extension tendon of the right forearm and in the thumb abductor pollicus longus and extensor pollicus brevis. Conduit Bender Goal (LTG) Karla presents with improvements in myofascial mobility of the forearm and thumb. She has no pain with stretch to the common extensor tendon or over with abduction and flexion of the right thumb good progress LTG Duration 12 weeks One Impairment right sided wrist and thumb pain that limits ADL's and computer work Group Home Goal (LTG) Karla reports a overall reduction in right sided thumb and wrist pain and is able to reduce use of the wrist splint with improved pain control good progress LTG Duration 12 weeks Assessment Summary Assessment Karla is making great overall progress. Her pain levels are significantly reduced and she is no longer needing to wear the splint at night. She has been working on her stretches and exercises . At this point she would like to try to have a couple of visits spread out to work on tightness for after golfing and gardening. She woudl benefit from a few additional visits to reassess the tissue and work on mobility. Physical Therapy Plan Frequency and Duration Frequency of Treatment 2x/Week Duration of treatment (weeks) 12 Plan of Care Start Date 10/29/22 Plan of Care End Date 01/21/23 Next Visit Focus/Plan Next Note Type Treatment Note Next Visit Plan review sidelying shoulder ER and standing rows, continue working pec jimmy knapp and MAG[employer]IE
--- NOTE | 2023-03-04 10:59 | PT.OPDS ---
Current Diagnoses Radial styloid tenosynovitis [de Quervain] (10/29/22) Other synovitis and tenosynovitis, right hand (10/29/22) Visit Care Team Role Provider Type ALY Hector Attending Provider [employer] Family Provider Primary Care Provider Referring Provider Specialty: Family Practice Address: [address] [place] [address], [id number] Email: [email or web address] Visit Number Visit Number 9 Discharge Summary PT-OP-B Current Condition Start: 08/11/22 14:22 Freq: Status: Active Protocol: Document 08/11/22 14:30 [facility] (Rec: 08/11/22 15:44 [facility] [id number]) Current Condition History of Current Condition Onset Date April 2022 History of Current Condition Symptoms of wrist and thumb pain started around 2021, she had started lifting gentle weights and also has to pick her dog out of her car. After winter break it was bothering her more. She just ordered a low profile mouse that is cordless and this has helped. If she bends her wrists at night she will get elbow pain. She is wearing a splint since Jun 23 She has a sit-stand desk for work but she works from home half the time witout a sit stand. She also feels like she has neck tightness more on the right side. The splint is helping and she finds her self wearing it most of the time Treatment Goals Patient/Caregiver Goals Pts goals include eliminating pain in her thumb and wrist Current Functional Impairments (Reported) Functional Limitations- ADL's pain with activities that include picking up heavy objects, moderate difficulty getting in and out of the bathtub and putting on shoes and socks Functional Limitations- Work/School pt describes moderate difficulty with house hold and work related activity PT-OP-C Subjective Start: 08/11/22 14:22 Freq: Status: Active Protocol: Document 10/29/22 16:00 [facility] (Rec: 11/04/22 12:55 [facility] [id number]) OP-PT Subjective Patient Comments Patient Comments Karla reports she is doing much better overall, she still has some left sided tightness following gardening or golfing but can tell she is not as tight as she was and is not in as much pain PT-OP-F Manual Assessment Start: 08/11/22 14:22 Freq: Status: Active Protocol: Document 08/11/22 14:30 [facility] (Rec: 08/11/22 16:30 [facility] [id number]) Manual Assessments Soft Tissue Assessment Soft Tissue Mobility Assessment myofascial restrictions across the common wrist extensor tendons on the right, tightness in the R thumb abductor pollicus longus and extensor pollicus brevis, tightness in B pec minor muscles, scalenes and upper trapezius Other Manual Assessments Other Manual Assessments + ULTT for median nerve and radial nerve on the right PT-OP-J Posture/Palpation/Skin Start: 08/11/22 14:22 Freq: Status: Active Protocol: Document 08/11/22 14:30 [facility] (Rec: 08/11/22 15:44 [facility] [id number]) Palpation Assessment Location abductor pollicus longus and extensor pollicus brevis of the right wrist Palpation Details tenderness in the above tendons and pain increases with stretch to the tendons PT-OP-K Range of Motion Start: 08/11/22 14:22 Freq: Status: Active Protocol: Document 08/11/22 14:30 [facility] (Rec: 08/11/22 16:33 [facility] [id number]) Cervical Spine Range of Motion Cervical Spine Passive Testing Position Supine Lateral Flexion Left 10 Lateral Flexion Right 10 ROM Limitations Soft Tissue Tightness Comments pt is restricted in her scalenes and upper trapezius and lacks ROM into cervical sidebending due to tightness and guarding Elbow/Forearm Range of Motion Elbow/Forearm right Elbow/Forearm ROM WFL Yes Comments pain at end range elbow extension with wrist flexion stretch Wrist Goniometric Range of Motion Wrist Right Wrist ROM WFL Yes ROM Limitations Comments pt is able to complete ROM however has pain with thumb abduction, and wrist radial and ulnar deviation PT-OP-M Strength Start: 08/11/22 14:22 Freq: Status: Active Protocol: Document 08/11/22 14:30 [facility] (Rec: 08/11/22 17:08 [facility] [id number]) Elbow/Forearm Strength Elbow and Forearm Manual Muscle Testing Right Flexion (C6) 3 Fair Extension (C7) 3 Fair Pronation 3 Fair Supination 3 Fair Comments pain with resisted forearm movement PT-OP-T Assessment and Plan Start: 08/11/22 14:22 Freq: Status: Active Protocol: Document 03/04/23 10:58 [facility] (Rec: 03/04/23 10:59 [facility] [id number]) Physical Therapy Assessment Goals Four Impairment Restictions in the soft tissue of the scalenes, upper trapezius, and pectoralis minor Short Term Goal (STG) Pt is educated in a HEP for cervical and anterior pec minor stretching GOAL MET Three Impairment + ULTT for median nerve tightness Wheel Filler Goal (LTG) Karla test negative for ULTT for the median nerve and is independent with a home program for nerve and tendon gliding GOOD progress but still + at end range LTG Duration 12 weeks Two Impairment myofascial restrictions and guarding in the common extension tendon of the right forearm and in the thumb abductor pollicus longus and extensor pollicus brevis. Skilled Nursing Goal (LTG) Karla presents with improvements in myofascial mobility of the forearm and thumb. She has no pain with stretch to the common extensor tendon or over with abduction and flexion of the right thumb good progress LTG Duration 12 weeks One Impairment right sided wrist and thumb pain that limits ADL's and computer work Wheel Filler Goal (LTG) Karla reports a overall reduction in right sided thumb and wrist pain and is able to reduce use of the wrist splint with improved pain control good progress LTG Duration 12 weeks Assessment Summary Assessment Karla did make great overall progress. Unfortunately we were not able to get additinal insurance coverage so she will be discharged to a HEP. Physical Therapy Plan Discharge Physical Therapy Discharge Reasons No Longer Attending PT
[2023-04-05 14:24] LABS: Candida species Negative (Negative); Gardnerella vaginalis Negative (Negative); Trichomoas vaginalis Negative (Negative)
== END 2023-03-05 10:13 | disposition home or self-care (01) ==
LOC: PHYS 16:00
PROVIDERS: Obstetrics & Gynecology; Family Provider Internal Medicine; PCP Internal Medicine; Referring Provider Internal Medicine; Visit Provider Internal Medicine
DX: M65.841 Other synovitis and tenosynovitis, right hand (principal); M65.4 Radial styloid tenosynovitis [de Quervain]
CPT/HCPCS: 87480; 87510; 87660; 97110; 97140; 97161

== ENCOUNTER → 2023-04-02 12:00 | Outpatient (ROUT) | payer OTHER, SELFPAY | PROVIDERS: Family Provider Internal Medicine; PCP Naturopath; Visit Provider Obstetrics & Gynecology | DX: N94.9 Unspecified condition associated with female genital organs and menstrual cycle (principal) | CPT/HCPCS: 87480; 87510; 87660 ==

== ENCOUNTER → 2023-07-15 07:58 | Outpatient (CLI) | payer OTHER, SELFPAY ==
[2023-07-15 08:56] LABS: Add Manual Diff / Slide Review NO; Basophils Absolute Auto 100 /uL (0-100); Eosinophils Absolute Auto 200 /uL (0-450); Eosinophils Percent Auto 2.9 % (2-4); Hematocrit 38.4 % (36-46); Lymphocytes Absolute Auto 1700 /uL (1100-4500); Lymphocytes Percent Auto 27.4 % (25-40); Mean Corpuscular HGB Conc 33.8 % (30-36); Mean Corpuscular Hemoglobin 29.7 PG (26-34); Mean Corpuscular Volume 87.9 fL (80-100); Monocytes Absolute Auto 500 /uL (0-900); Monocytes Percent Auto 7.7 % (3-14); Neutrophils Absolute Auto 3700 /uL (1500-7000); Platelet Count 254 X10^3/uL (150-400); Red Blood Cell Count 4.36 X10^6/uL (4.0-5.2)
[2023-07-15 09:22] LABS: Alanine Aminotransferase 17 IU/L (<35); Albumin 4.1 g/dL (3.5-5.0); Albumin Globulin Ratio 1.7 (1.0-2.8); Alkaline Phosphatase 42 U/L (38-126); Aspartate Aminotransferase 28 IU/L (14-36); BUN Creatinine Ratio 11.1 (6-22); Bilirubin Total 0.8 mg/dL (0.2-1.3); Blood Urea Nitrogen 7 mg/dL (7-17); C-Reactive Protein Quant 0.6 mg/dL (<1.0); Carbon Dioxide 27 mmol/L (22-32); Chloride 103 mmol/L (98-107); Estimated Glomerular Filt Rate > 60 mL/min (>60); Globulin 2.4 g/dL (1.7-4.1); Glucose 91 mg/dL (70-100); HEMOLYSIS < 15 (0-50); Sodium 135 mmol/L (137-145); Total Protein 6.5 g/dL (6.3-8.2)
[2023-07-15 09:24] LABS: NT-proBNP (BNP-Adult 18+) 148 pg/mL (<125)
[2023-07-15 09:27] LABS: Erythrocyte Sedimentation Rate 1 MM/HR (0-20)
[2023-07-20 17:46] LABS: ANA Screen, IFA Negative (.)
== END ==
PROVIDERS: Family Provider Internal Medicine; PCP Naturopath; Referring Provider Naturopath; Visit Provider Naturopath
DX: R60.0 Localized edema (principal); I73.00 Raynaud's syndrome without gangrene
CPT/HCPCS: 36415; 80053; 83880; 85025; 85651; 86038; 86140

== ENCOUNTER → 2023-08-23 15:52 | Outpatient (CLI) | payer OTHER, SELFPAY ==
[2023-08-23 17:13] LABS: Sodium 138 mmol/L (137-145)
[2023-08-23 17:28] LABS: Follicle Stimulating Hormone 27.9 mIU/mL
[2023-08-23 17:47] LABS: Cancer Antigen 125 10.9 U/mL (0-35)
== END ==
PROVIDERS: Family Provider Internal Medicine; PCP Naturopath; Referring Provider Obstetrics & Gynecology; Visit Provider Obstetrics & Gynecology
DX: N95.1 Menopausal and female climacteric states (principal)
CPT/HCPCS: 36415; 83001; 84295; 86304

== ENCOUNTER 2023-10-19 11:15 | Outpatient (RCR) | payer OTHER, SELFPAY ==
--- NOTE | 2023-06-29 16:00 | PT.OPPOC ---
Physical, Occupational & Speech Therapy At [facility] Current Diagnoses Other chronic pain (06/29/23) Pain in left shoulder (06/29/23) Stiffness of left shoulder, not elsewhere classified (06/29/23) Muscle wasting and atrophy, not elsewhere classified, left shoulder (06/29/23) Visit Care Team Role Provider Type Nori Boone ND Primary Care Provider Non-Staff Referring Provider Specialty: Naturopathy Address: [address] [place] [address], [id number] Email: ALY Hector Attending Provider Advanced [employer] Cutter Machine Family Provider Specialty: Family Practice Address: [address] [place] [address], [facility] [place], [address] Email: [email or web address] Plan Of Care PT-OP-T Assessment and Plan Start: 06/29/23 08:07 Freq: Status: Active Protocol: Document 06/29/23 09:35 [facility] (Rec: 06/29/23 09:41 [facility] [id number][facility] Physical Therapy Assessment Goals Four Impairment Decreased strength of left shoulder IR, flexion, abduction Track Worker Goal (LTG) Karla presents with improved overall strength of the left shoulder testing 5/5 MMT LTG Duration 8 weeks+ Three Impairment tenderness to palpation over the biceps tendon and suprapsinatus Track Worker Goal (LTG) Karla reports no tenderness to palpation over the biceps tendon and supraspinatus insertion LTG Duration 8 weeks Two Impairment Decreased left shoulder ROM Short Term Goal (STG) Karla is educated in ROM and stabilization exercises to assist improving left shoulder ROM STG Duration 3 weeks Nursing Home Goal (LTG) Karla presents with improved shoulder ROM to WNL LTG Duration 8 weeks One Impairment left sided shoulder pain rated 6/10 on pain scale limiting over head activities such as donning and doffing clothes. Track Worker Goal (LTG) Karla reports overall reduction in pain levels from 6/10 to 1-2/10 and is no longer experiencing pain with over head activities LTG Duration 8 weeks Assessment Summary Assessment Karla is a 48 year old female referred to PT with C/O left sided shoulder pain. Karla notes pain began in February and seems to be worsening with time. She reports decreased ROM and pain with activities such as putting on and off her coat. She reports her symptoms started with a weight routine that she likes to do with 8# weights which included over head lifts. At this time due to pain she is not able to continue with the overhead lifts. With exam today Karla is tight in her posterior shoulder capsule and her shoulder sits in a anterior position. She is tender to palpation over the long head of the biceps tendon and over the supraspinatus tendon attachment. There is tightness of the pec minor and upper trapezius. Karla is limited both with shoulder flexion and shoulder abduction , both of these motions increase pain. Over head shoulder motion increasing tinging into her left fingers. She has pain with resisted shoulder IR over her biceps tendon and tests weak for shoulder ER. I started her today with manual therapy techniques to improve posterior capsule mobility and MFR over the pec minor. This was followed by ice massage and Karla was instructed to begin ice massage over the biceps tendon. Rotator cuff strengthening was initiated. Karla is a good candidate for PT. Physical Therapy Plan Frequency and Duration Frequency of Treatment 2x/Week Duration of treatment (weeks) 8 Plan of Care Start Date 06/29/23 Plan of Care End Date 08/24/23 Next Visit Focus/Plan Next Note Type Treatment Note Next Visit Plan review ice massage for home and shoulder sidelying ER, add in prone scapula retraction, wall walk, standing posterior rotator cuff mobilization Plan of Care Dates Plan of Care Start Date 06/29/23 Plan of Care End Date 08/24/23 Electronically Signed by: Melody Zimmerman, PT 06/30/23 0838 If you are in agreement with this Plan of Care, please return a signed and dated copy. I have reviewed this Plan of Care and certify that the skilled therapy services above are required to meet the patient?s needs. Physician Signature Date Printed Name and Credentials Clinical Instructor Signature Printed Name and Credentials
--- NOTE | 2023-06-29 16:00 | PT.OIE ---
Current Diagnoses Other chronic pain (06/29/23) Pain in left shoulder (06/29/23) Stiffness of left shoulder, not elsewhere classified (06/29/23) Muscle wasting and atrophy, not elsewhere classified, left shoulder (06/29/23) Past Medical History (Last Reviewed 05/11/23 @ 16:02 by Samson Montemayor MD) Fibromyalgia GERD (gastroesophageal reflux disease) Past Surgical History (Last Reviewed 05/11/23 @ 16:02 by Samson Montemayor MD) History of third molar tooth extraction History of tonsillectomy Visit Care Team Role Provider Type Nori Boone ND Primary Care Provider Non-Staff Referring Provider Specialty: Naturopathy Address: [address] [place] [address], [id number] Email: ALY Hector Attending Provider Advanced Monitoring Tech Family Provider Specialty: Family Practice Address: [address] [place] [address], [id number] Email: [email or web address] Physical Therapy Initial Evaluation PT-OP-A Visit Information Start: 06/29/23 08:07 Freq: Status: Active Protocol: Document 06/29/23 08:14 [facility] (Rec: 06/29/23 08:30 [facility] [id number]) Out-Patient Physical Therapy Visit Information Visit Information Visit Type Initial Evaluation Visit Start Time 08:15 Visit Stop Time 09:00 Total Visit Minutes 45 Visit Number 1 Evaluation Information Evaluation Date 06/29/23 PT-OP-B Current Condition Start: 06/29/23 08:07 Freq: Status: Active Protocol: Document 06/29/23 08:14 [facility] (Rec: 06/29/23 08:30 [facility] [id number]) Current Condition History of Current Condition Onset Date February 2023 Current Complaints left sided shoulder pain that started in february, she does weights 8# and History of Current Condition Karla notes her pain began in February. She has a routine with 8# weights that she does including over head press. She notes she started experiencing pain with the weights, she does have pain to the elbow and sometime she will get tingling on the top of her wrist. She has had to back off her weights due to pain. At this time she has pain with any reaching and lifting over head and pain putting on and off her coat. 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 She describes severe difficulty with recreational activities such as golf or tennis. PT-OP-C Subjective Start: 06/29/23 08:07 Freq: Status: Active Protocol: Document 06/29/23 09:21 [facility] (Rec: 06/29/23 09:24 [facility] [id number]) Patient Questionnaires Quick Dash- Upper Extremity Quick Dash UE Score 30 Quick Dash UE Impairment 20 to 39% Impaired (Score 20- 39) OP-PT Pain Assessment Pain Assessment Grid Paper Pain Assessment Grid Completed Yes Location left shoulder Intensity 6 Scale Used Numeric (0 - 10) Frequency Intermittent Radiating Location down arm to finger tips Other Pain Aggravating Factors donning and doffing coat PT-OP-F Manual Assessment Start: 06/29/23 08:07 Freq: Status: Active Protocol: Document 06/29/23 08:15 [facility] (Rec: 06/30/23 08:25 [facility] [id number]) Manual Assessments Soft Tissue Assessment Soft Tissue Mobility Assessment tightness and guarding of the left pec minor, left upper trap, Joint Mobility Assessment Joint Mobility Assessment poor scapular thoracic mobility, decreased upward rotation of the scapula and scapula rests in a downward rotation position. Decreased posterior glides and capsule mobility PT-OP-J Posture/Palpation/Skin Start: 06/29/23 08:07 Freq: Status: Active Protocol: Document 06/29/23 08:15 [facility] (Rec: 06/30/23 08:25 [facility] [id number]) Palpation Assessment Location left supraspinatus attachment on lateral shoulder Palpation Findings Soft Tissue Tightness, Tenderness left shoulder Palpation Location left long head of the biceps tendon Palpation Findings Soft Tissue Tightness,Muscle Guarding,Tenderness PT-OP-K Range of Motion Start: 06/29/23 08:07 Freq: Status: Active Protocol: Document 06/29/23 08:14 [facility] (Rec: 06/29/23 08:30 [facility] [id number]) Shoulder Goniometric Range of Motion Shoulder Left Testing Position Supine Flexion 155 Abduction 80 External Rotation at 0 degrees Abduction 30 Internal Rotation 30 Comments increased tingling into the left hand with flexion, pain with resisited IR on the left side. Shoulder ROM Limitations Shoulder ROM Limitations Soft Tissue Tightness,Pain Comments tenderness at the biceps tendon attachment made worse with shoulder abduction and flexion PT-OP-M Strength Start: 06/29/23 08:07 Freq: Status: Active Protocol: Document 06/29/23 09:21 [facility] (Rec: 06/29/23 09:21 [facility] [id number]) Shoulder Strength Shoulder Manual Muscle Testing Left Flexion 3- Fair- Abduction (C5) 3- Fair- External Rotation 4 Good Internal Rotation 4 Good Comments pain with resisted elbow flexion and shoulder IR on the left side PT-OP-Q Treatments Start: 06/29/23 08:07 Freq: Status: Active Protocol: Document 06/29/23 09:26 [facility] (Rec: 06/29/23 09:30 [facility] [id number]) Therapeutic Exercises Sidelying Exercises sidelying shoulder ER Side left Reps/Minutes x 20 reps no resistance Comments started with 1# weight but gripping the weight bothered her left forearm Other Exercises supine foam roll stretch Side bilateral Reps/Minutes 1-2 min Comments palms toward ceiling, cues to abduct in pain free ROM Manual Therapy Treatment Soft Tissue Mobilization manual pec minor release on the left Mobilization Type Myofascial Release Intensity/Depth Moderate Body Position Hooklying Manual Techniques sidelying scapular mobilizations Comments worked on scapular upward rotation , tightness of the upper trapezius manual posterior capsule stretch L shoulder Type left shoulder posterior capsule stretch Body Location supine Body Position Hooklying Comments manual posterior capsule stretch PT-OP-T Assessment and Plan Start: 06/29/23 08:07 Freq: Status: Active Protocol: Document 06/29/23 09:35 [facility] (Rec: 06/29/23 09:41 [facility] [id number]) Physical Therapy Assessment Goals Four Impairment Decreased strength of left shoulder IR, flexion, abduction [facility]entiary Goal (LTG) Karla presents with improved overall strength of the left shoulder testing 5/5 MMT LTG Duration 8 weeks+ Three Impairment tenderness to palpation over the biceps tendon and suprapsinatus Television Maintenance Man Goal (LTG) Karla reports no tenderness to palpation over the biceps tendon and supraspinatus insertion LTG Duration 8 weeks Two Impairment Decreased left shoulder ROM Short Term Goal (STG) Karla is educated in ROM and stabilization exercises to assist improving left shoulder ROM STG Duration 3 weeks Television Maintenance Man Goal (LTG) Karla presents with improved shoulder ROM to WNL LTG Duration 8 weeks One Impairment left sided shoulder pain rated 6/10 on pain scale limiting over head activies such as donning and doffing clothes. Penitentiary Goal (LTG) Karla reports overall reduction in pain levels from 6/10 to 1-2/10 and is no longer experiencing pain with over head activities LTG Duration 8 weeks Assessment Summary Assessment Karla is a 48 year old female referred to PT with C/O left sided shoulder pain. Karla notes pain began in February and seems to be worseing with time. She reports decreased ROM and pain with activities such as putting on and off her coat. She reports her symptoms started with a weight routine that she likes to do with 8# weights which included over head lifts. At this time due to pain she is not able to continue with the overhead lifts. With exam today Karla is tight in her posterior shoulder capsule and her shoulder sits in a anterior position. She is tender to palpation over the long head of the biceps tendon and over the supraspinatus tendon attachment. There is tightnes of the pec minor and upper trapezius. Karla is limited both with shoulder flexion and shoulder abduction , both of these motions increase pain. Over head shoulder motion increasing tinging into her left fingers. She has pain with resisted shoulder IR over her biceps tendon and tests weak for shoulder ER. I started her today with manual therapy techniques to improve posterior capsule mobility and MFR over the pec minor. This was follwed by ice massage and Karla was instructed to begin ice massage over the biceps tendon. Rotator cuff strengthening was initiated. Karla is a good candidate for PT. Physical Therapy Plan Frequency and Duration Frequency of Treatment 2x/Week Duration of treatment (weeks) 8 Plan of Care Start Date 06/29/23 Plan of Care End Date 08/24/23 Next Visit Focus/Plan Next Note Type Treatment Note Next Visit Plan review ice massage for home and shoulder sidelying ER, add in prone scapula retraction, wall walk, standing posterior rotator cuff mobilization
--- NOTE | 2023-07-06 11:43 | PT.OTN ---
Current Diagnoses Other chronic pain (07/06/23) Pain in left shoulder (07/06/23) Stiffness of left shoulder, not elsewhere classified (07/06/23) Muscle wasting and atrophy, not elsewhere classified, left shoulder (07/06/23) Physical Therapy Treatment Note PT-OP-A Visit Information Start: 06/29/23 08:07 Freq: Status: Active Protocol: Document 07/06/23 09:05 [facility] (Rec: 07/06/23 11:34 [facility] [id number]) Out-Patient Physical Therapy Visit Information Visit Information Visit Type Treatment Note Visit Start Time 09:05 Visit Stop Time 09:45 Total Visit Minutes 40 Visit Number 2 Evaluation Information Evaluation Date 06/29/23 PT-OP-B Current Condition Start: 06/29/23 08:07 Freq: Status: Active Protocol: Document 06/29/23 08:14 [facility] (Rec: 06/29/23 08:30 [facility] [id number]) Current Condition History of Current Condition Onset Date February 2023 Current Complaints left sided shoulder pain that started in february, she does weights 8# and History of Current Condition Karla notes her pain began in February. She has a routine with 8# weights that she does including over head press. She notes she started experiencing pain with the weights, she does have pain to the elbow and sometime she will get tingling on the top of her wrist. She has had to back off her weights due to pain. At this time she has pain with any reaching and lifting over head and pain putting on and off her coat. Treatment Goals Patient/Caregiver Goals Karla's goals include decreasing pain and improving shoulder ROM Current Functional Impairments (Reported) Functional Limitations- ADL's Karla describes moderate difficulty with drink mixer, carrying a shopping bag, donning and doffing a coat, and opening a tight jar. She describes severe difficulty with recreational activities such as golf or tennis. PT-OP-C Subjective Start: 06/29/23 08:07 Freq: Status: Active Protocol: Document 07/06/23 09:05 [facility] (Rec: 07/06/23 09:49 [facility] [id number]) OP-PT Subjective Patient Comments Patient Comments pt notes she was sore following her first visit, she feels fatigued getting through her exercises PT-OP-F Manual Assessment Start: 06/29/23 08:07 Freq: Status: Active Protocol: Document 06/29/23 08:15 [facility] (Rec: 06/30/23 08:25 [facility] [id number]) Manual Assessments Soft Tissue Assessment Soft Tissue Mobility Assessment tightness and guarding of the left pec minor, left upper trap, Joint Mobility Assessment Joint Mobility Assessment poor scapular thoracic mobility, decreased upward rotation of the scapula and scapula rests in a downward rotation position. Decreased posterior glides and capsule mobility PT-OP-J Posture/Palpation/Skin Start: 06/29/23 08:07 Freq: Status: Active Protocol: Document 06/29/23 08:15 [facility] (Rec: 06/30/23 08:25 [facility] [id number]) Palpation Assessment Location left supraspinatus attachment on lateral shoulder Palpation Findings Soft Tissue Tightness, Tenderness left shoulder Palpation Location left long head of the biceps tendon Palpation Findings Soft Tissue Tightness,Muscle Guarding,Tenderness PT-OP-K Range of Motion Start: 06/29/23 08:07 Freq: Status: Active Protocol: Document 06/29/23 08:14 [facility] (Rec: 06/29/23 08:30 [facility] [id number]) Shoulder Goniometric Range of Motion Shoulder Left Testing Position Supine Flexion 155 Abduction 80 External Rotation at 0 degrees Abduction 30 Internal Rotation 30 Comments increased tingling into the left hand with flexion, pain with resisited IR on the left side. Shoulder ROM Limitations Shoulder ROM Limitations Soft Tissue Tightness,Pain Comments tenderness at the biceps tendon attachment made worse with shoulder abduction and flexion PT-OP-M Strength Start: 06/29/23 08:07 Freq: Status: Active Protocol: Document 06/29/23 09:21 [facility] (Rec: 06/29/23 09:21 [facility] [id number]) Shoulder Strength Shoulder Manual Muscle Testing Left Flexion 3- Fair- Abduction (C5) 3- Fair- External Rotation 4 Good Internal Rotation 4 Good Comments pain with resisted elbow flexion and shoulder IR on the left side PT-OP-Q Treatments Start: 06/29/23 08:07 Freq: Status: Active Protocol: Document 07/06/23 09:05 [facility] (Rec: 07/06/23 09:49 [facility] [id number]) Therapeutic Exercises Supine Exercises supine AARom shoulder flexion Reps/Minutes x 20 reps Prone Exercises prone W scapular retraction Reps/Minutes x 10 reps prone scapular retraction Reps/Minutes x 10 reps Sidelying Exercises sidelying shoulder ER Side left Reps/Minutes x 20 reps no resistance Comments no weight Standing Exercises staning wall walks Reps/Minutes x 10 reps standing posterior capsule stretch Side bilateral Reps/Minutes x 2 reps Comments tried against a wall using a small ball on the back of her shoulder Manual Therapy Treatment Soft Tissue Mobilization manual pec minor release on the left Mobilization Type Myofascial Release Intensity/Depth Moderate Body Position Hooklying Manual Techniques manual scalene stretches L side Comments worked anterior, middle, and posterior scalene PT-OP-R Modalities Start: 07/06/23 11:38 Freq: Status: Active Protocol: Document 07/06/23 09:05 [facility] (Rec: 07/06/23 11:39 [facility] [id number]) Hot Pack/Cold Pack Treatment Ice Massage Location left biceps tendon and supraspinatus insertion Patient Position Supine Patient Tolerance Good PT-OP-T Assessment and Plan Start: 06/29/23 08:07 Freq: Status: Active Protocol: Document 07/06/23 09:05 [facility] (Rec: 07/06/23 11:42 [facility] [id number]) Physical Therapy Assessment Assessment Summary Assessment Karla was experience sx of nerve irritation today with both sidelying shoulder ER as well as prone thoracic extension. I cued her on decreasing upper trap tightness. I also worked on stretching the scalenes. She may need additional work done on the cervical spine to decrease nerve entrapment on the left. Physical Therapy Plan Frequency and Duration Frequency of Treatment 2x/Week Duration of treatment (weeks) 8 Plan of Care Start Date 06/29/23 Plan of Care End Date 08/24/23 Therapeutic Interventions Therapeutic Interventions Home Exercise Program,Manual Therapy,Patient/Caregiver Education,Self-Care/Home Management,Soft Tissue Mobilization,Therapeutic Exercises Next Visit Focus/Plan Next Note Type Treatment Note Next Visit Plan begin with work on the neck both with traction as well as stretching for the left upper trap and scalenes, review all established exercises
--- NOTE | 2023-07-20 16:14 | PT.OTN ---
Current Diagnoses Other chronic pain (07/20/23) Pain in left shoulder (07/20/23) Stiffness of left shoulder, not elsewhere classified (07/20/23) Muscle wasting and atrophy, not elsewhere classified, left shoulder (07/20/23) Physical Therapy Treatment Note PT-OP-A Visit Information Start: 06/29/23 08:07 Freq: Status: Active Protocol: Document 07/20/23 14:29 [facility] (Rec: 07/20/23 15:52 [facility] [id number]) Out-Patient Physical Therapy Visit Information Visit Information Visit Type Treatment Note Visit Start Time 14:30 Visit Stop Time 15:15 Visit Number 3 PT-OP-B Current Condition Start: 06/29/23 08:07 Freq: Status: Active Protocol: Document 06/29/23 08:14 [facility] (Rec: 06/29/23 08:30 [facility] [id number]) Current Condition History of Current Condition Onset Date February 2023 Current Complaints left sided shoulder pain that started in february, she does weights 8# and History of Current Condition Karla notes her pain began in February. She has a routine with 8# weights that she does including over head press. She notes she started experiencing pain with the weights, she does have pain to the elbow and sometime she will get tingling on the top of her wrist. She has had to back off her weights due to pain. At this time she has pain with any reaching and lifting over head and pain putting on and off her coat. 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 She describes severe difficulty with recreational activities such as golf or tennis. PT-OP-C Subjective Start: 06/29/23 08:07 Freq: Status: Active Protocol: Document 07/20/23 14:29 [facility] (Rec: 07/20/23 15:52 [facility] [id number]) OP-PT Subjective Patient Comments Patient Comments pt notes she has had a stressfull last 2 weeks and hasn't been able to do her exercises. She pain with reaching and lifting over head still. Patient Reported Progress Same PT-OP-F Manual Assessment Start: 06/29/23 08:07 Freq: Status: Active Protocol: Document 06/29/23 08:15 [facility] (Rec: 06/30/23 08:25 [facility] [id number]) Manual Assessments Soft Tissue Assessment Soft Tissue Mobility Assessment tightness and guarding of the left pec minor, left upper trap, Joint Mobility Assessment Joint Mobility Assessment poor scapular thoracic mobility, decreased upward rotation of the scapula and scapula rests in a downward rotation position. Decreased posterior glides and capsule mobility PT-OP-J Posture/Palpation/Skin Start: 06/29/23 08:07 Freq: Status: Active Protocol: Document 06/29/23 08:15 [facility] (Rec: 06/30/23 08:25 [facility] [id number]) Palpation Assessment Location left supraspinatus attachment on lateral shoulder Palpation Findings Soft Tissue Tightness, Tenderness left shoulder Palpation Location left long head of the biceps tendon Palpation Findings Soft Tissue Tightness,Muscle Guarding,Tenderness PT-OP-K Range of Motion Start: 06/29/23 08:07 Freq: Status: Active Protocol: Document 06/29/23 08:14 [facility] (Rec: 06/29/23 08:30 [facility] [id number]) Shoulder Goniometric Range of Motion Shoulder Left Testing Position Supine Flexion 155 Abduction 80 External Rotation at 0 degrees Abduction 30 Internal Rotation 30 Comments increased tingling into the left hand with flexion, pain with resisited IR on the left side. Shoulder ROM Limitations Shoulder ROM Limitations Soft Tissue Tightness,Pain Comments tenderness at the biceps tendon attachment made worse with shoulder abduction and flexion PT-OP-M Strength Start: 06/29/23 08:07 Freq: Status: Active Protocol: Document 06/29/23 09:21 [facility] (Rec: 06/29/23 09:21 [facility] [id number]) Shoulder Strength Shoulder Manual Muscle Testing Left Flexion 3- Fair- Abduction (C5) 3- Fair- External Rotation 4 Good Internal Rotation 4 Good Comments pain with resisted elbow flexion and shoulder IR on the left side PT-OP-Q Treatments Start: 06/29/23 08:07 Freq: Status: Active Protocol: Document 07/20/23 16:11 [facility] (Rec: 07/20/23 16:13 [facility] [id number]) Manual Therapy Treatment Soft Tissue Mobilization MFR left upper trapezius Mobilization Type Myofascial Release Intensity/Depth Moderate Body Position Hooklying Comments pt is very tight and guarded today left upper trapezius manual pec minor release on the left Mobilization Type Myofascial Release Intensity/Depth Moderate Body Position Hooklying Manual Techniques manual IR.ER stretches Type manual shoulder ROM Body Location left shoulder Comments pt able to go to end range of ER/IR in supine with PROM today manual scalene stretches L side Comments worked anterior, middle, and posterior scalene sidelying scapular mobilizations Comments worked on scapular upward rotation , tightness of the upper trapezius PT-OP-R Modalities Start: 07/06/23 11:38 Freq: Status: Active Protocol: Document 07/06/23 09:05 [facility] (Rec: 07/06/23 11:39 [facility] [id number]) Hot Pack/Cold Pack Treatment Ice Massage Location left biceps tendon and supraspinatus insertion Patient Position Supine Patient Tolerance Good PT-OP-T Assessment and Plan Start: 06/29/23 08:07 Freq: Status: Active Protocol: Document 07/20/23 16:11 [facility] (Rec: 07/20/23 16:13 [facility] [id number]) Physical Therapy Assessment Assessment Summary Assessment Karla is presenting with a great amount of tightness in the scalenes and upper trapezius as well as pec minor . Time was spent stretching and mobilizing her today. We will return to her HEP next visit Physical Therapy Plan Frequency and Duration Frequency of Treatment 2x/Week Duration of treatment (weeks) 8 Plan of Care Start Date 06/29/23 Plan of Care End Date 08/24/23 Therapeutic Interventions Therapeutic Interventions Home Exercise Program,Manual Therapy,Patient/Caregiver Education,Self-Care/Home Management,Soft Tissue Mobilization,Therapeutic Exercises Next Visit Focus/Plan Next Note Type Treatment Note Next Visit Plan continue with work on the neck both with traction as well as stretching for the left upper trap and scalenes, review all established exercises
--- NOTE | 2023-07-27 15:25 | PT.OTN ---
Current Diagnoses Other chronic pain (07/27/23) Pain in left shoulder (07/27/23) Stiffness of left shoulder, not elsewhere classified (07/27/23) Muscle wasting and atrophy, not elsewhere classified, left shoulder (07/27/23) Physical Therapy Treatment Note PT-OP-A Visit Information Start: 06/29/23 08:07 Freq: Status: Active Protocol: Document 07/27/23 14:34 [facility] (Rec: 07/27/23 16:03 [facility] [id number]) Out-Patient Physical Therapy Visit Information Visit Information Visit Type Treatment Note Visit Start Time 14:34 Visit Stop Time 15:25 Visit Number 4 Number of DATA PROCESSING CONSULTANT Visits 1 Evaluation Information Evaluation Date 06/29/23 PT-OP-B Current Condition Start: 06/29/23 08:07 Freq: Status: Active Protocol: Document 06/29/23 08:14 [facility] (Rec: 06/29/23 08:30 [facility] [id number]) Current Condition History of Current Condition Onset Date February 2023 Current Complaints left sided shoulder pain that started in february, she does weights 8# and History of Current Condition Karla notes her pain began in February. She has a routine with 8# weights that she does including over head press. She notes she started experiencing pain with the weights, she does have pain to the elbow and sometime she will get tingling on the top of her wrist. She has had to back off her weights due to pain. At this time she has pain with any reaching and lifting over head and pain putting on and off her coat. 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 She describes severe difficulty with recreational activities such as golf or tennis. PT-OP-C Subjective Start: 06/29/23 08:07 Freq: Status: Active Protocol: Document 07/27/23 14:34 [facility] (Rec: 07/27/23 16:03 [facility] [id number]) OP-PT Subjective Patient Comments Patient Comments Pt reports sore after last tx. Had to cancel last appt but rescheduled and will add more before leave. PT-OP-F Manual Assessment Start: 06/29/23 08:07 Freq: Status: Active Protocol: Document 06/29/23 08:15 [facility] (Rec: 06/30/23 08:25 [facility] [id number]) Manual Assessments Soft Tissue Assessment Soft Tissue Mobility Assessment tightness and guarding of the left pec minor, left upper trap, Joint Mobility Assessment Joint Mobility Assessment poor scapular thoracic mobility, decreased upward rotation of the scapula and scapula rests in a downward rotation position. Decreased posterior glides and capsule mobility PT-OP-J Posture/Palpation/Skin Start: 06/29/23 08:07 Freq: Status: Active Protocol: Document 06/29/23 08:15 [facility] (Rec: 06/30/23 08:25 [facility] [id number]) Palpation Assessment Location left supraspinatus attachment on lateral shoulder Palpation Findings Soft Tissue Tightness, Tenderness left shoulder Palpation Location left long head of the biceps tendon Palpation Findings Soft Tissue Tightness,Muscle Guarding,Tenderness PT-OP-K Range of Motion Start: 06/29/23 08:07 Freq: Status: Active Protocol: Document 06/29/23 08:14 [facility] (Rec: 06/29/23 08:30 [facility] [id number]) Shoulder Goniometric Range of Motion Shoulder Left Testing Position Supine Flexion 155 Abduction 80 External Rotation at 0 degrees Abduction 30 Internal Rotation 30 Comments increased tingling into the left hand with flexion, pain with resisited IR on the left side. Shoulder ROM Limitations Shoulder ROM Limitations Soft Tissue Tightness,Pain Comments tenderness at the biceps tendon attachment made worse with shoulder abduction and flexion PT-OP-M Strength Start: 06/29/23 08:07 Freq: Status: Active Protocol: Document 06/29/23 09:21 [facility] (Rec: 06/29/23 09:21 [facility] [id number]) Shoulder Strength Shoulder Manual Muscle Testing Left Flexion 3- Fair- Abduction (C5) 3- Fair- External Rotation 4 Good Internal Rotation 4 Good Comments pain with resisted elbow flexion and shoulder IR on the left side PT-OP-Q Treatments Start: 06/29/23 08:07 Freq: Status: Active Protocol: Document 07/27/23 14:34 [facility] (Rec: 07/27/23 16:03 [facility] [id number]) Therapeutic Exercises Sidelying Exercises ABD Sidelying Exercise Name trialed in PT Side left Resistance long axis AROM Reps/Minutes 5 reps Comments tactile cues for GH inferior glide and 1st rib inferior glide. open book Sidelying Exercise Name trialed in PT Side left Resistance long axis arm vs/ hand on head Reps/Minutes 3-5 reps each Comments scapular glide, decreased elbow/forearm tension/nervy post manual/hean neut sidelying shoulder ER Side left Reps/Minutes x 20 reps no resistance Comments no weight, tires fairly quickly, then elbow hurts last couple reps Other Exercises supine foam roll stretch Other Exercise Name 1. pec stretch 2. serratus press 3. FF 4. ER 5. ABD Side bilateral Equipment Used spine along noodle Reps/Minutes 1-2 min Comments L Manual Therapy Treatment Soft Tissue Mobilization MFR left upper trapezius Body Location L UT, Scalene, SCM, LS, suboccipital Mobilization Type Myofascial Release Intensity/Depth Moderate Body Position Hooklying Comments pt is very tight and guarded today left upper trapezius and suboccipital manual pec minor release on the left Body Location L pec minor, pec major, bicep Mobilization Type Myofascial Release,Sustained Pressure,Other Intensity/Depth Moderate Body Position Hooklying Comments MWM sustained pressure with breath inhale, shld IR/ER Joint Mobilizations Rib and Clavicle Joint L Direction caudal direction /c breath exhale Grade II Body Position Hooklying Reps/Duration 2 reps each Comments no adverse affects to allow increase mobility. L elbow Joint lateral, inferior glide /c mob strap Direction rolled towel under distal humerus Grade II Body Position Hooklying Comments gentle distraction with forearm Medial rotation and flexion Nerve Glides median nerve glide Nerve B- added to HEP Body Position Sitting Reps/Duration 5 reps each Comments seated tactile cues and demo to follow, ed for head tilt best with tolerance wrist ext approx 90 deg ABD, ed painfree range elbow/wrist mobility, painfree Manual Techniques manual scalene stretches L side Type ed self sitting- not significant stretch reported Reps/Duration self 2 reps, a Comments worked anterior, middle, and posterior scalene sidelying scapular mobilizations Type L Comments tactile cues LT and rhomboid scapular inferior glide and UR during ABD, HABD-cued slow controlled mov't, slight SA press GH Jt gapping midrange for less pinch feeling. PT-OP-R Modalities Start: 07/06/23 11:38 Freq: Status: Active Protocol: Document 07/06/23 09:05 [facility] (Rec: 07/06/23 11:39 [facility] [id number]) Hot Pack/Cold Pack Treatment Ice Massage Location left biceps tendon and supraspinatus insertion Patient Position Supine Patient Tolerance Good PT-OP-T Assessment and Plan Start: 06/29/23 08:07 Freq: Status: Active Protocol: Document 07/27/23 14:34 [facility] (Rec: 07/27/23 16:03 [facility] [id number]) Physical Therapy Assessment Goals Four Impairment Decreased strength of left shoulder IR, flexion, abduction Disease Intervention Specialist Goal (LTG) Karla presents with improved overall strength of the left shoulder testing 5/5 MMT LTG Duration 8 weeks+ Three Impairment tenderness to palpation over the biceps tendon and suprapsinatus Mcfp Goal (LTG) Karla reports no tenderness to palpation over the biceps tendon and supraspinatus insertion LTG Duration 8 weeks Two Impairment Decreased left shoulder ROM Short Term Goal (STG) Karla is educated in ROM and stabilization exercises to assist improving left shoulder ROM STG Duration 3 weeks Mcfp Goal (LTG) Karla presents with improved shoulder ROM to WNL LTG Duration 8 weeks One Impairment left sided shoulder pain rated 6/10 on pain scale limiting over head activies such as donning and doffing clothes. Mcfp Goal (LTG) Karla reports overall reduction in pain levels from 6/10 to 1-2/10 and is no longer experiencing pain with over head activities LTG Duration 8 weeks Assessment Summary Assessment Pt guarding L UT, scalene, pec minor, decreased tension after manual. Ed for set up and proper form added HABD Ts /pec stretch/shld ER over noodle and median nerve glide /c hand out. Pt irritation during trial open book and ABD sidelying, modifications and MWM manual pec/bicep but still little irritated tension so place on hold. Pt reported was able to reach back and put L arm in coat without pain, more mobility before left. Physical Therapy Plan Frequency and Duration Frequency of Treatment 2x/Week Duration of treatment (weeks) 8 Plan of Care Start Date 06/29/23 Plan of Care End Date 08/24/23 Therapeutic Interventions Therapeutic Interventions Home Exercise Program,Manual Therapy,Patient/Caregiver Education,Self-Care/Home Management,Soft Tissue Mobilization,Therapeutic Exercises Next Visit Focus/Plan Next Note Type Treatment Note Next Visit Plan Ask response to manual last tx . Continue with work on the neck both with traction as well as stretching for the left upper trap and scalenes, review all established exercises, over noodle/foam roller, Next : trial Tb if posterior chain eccentric open anterior chain tolerance range.
--- NOTE | 2023-08-05 10:45 | PT.OTN ---
Current Diagnoses Other chronic pain (08/05/23) Pain in left shoulder (08/05/23) Stiffness of left shoulder, not elsewhere classified (08/05/23) Muscle wasting and atrophy, not elsewhere classified, left shoulder (08/05/23) Physical Therapy Treatment Note PT-OP-A Visit Information Start: 06/29/23 08:07 Freq: Status: Active Protocol: Document 08/05/23 09:50 [facility] (Rec: 08/05/23 10:44 [facility] [id number]) Out-Patient Physical Therapy Visit Information Visit Information Visit Type Treatment Note Visit Start Time 09:45 Visit Stop Time 10:30 Visit Number 5 Number of NATIONAL SERVICE OFFICER Visits 0 PT-OP-B Current Condition Start: 06/29/23 08:07 Freq: Status: Active Protocol: Document 06/29/23 08:14 [facility] (Rec: 06/29/23 08:30 [facility] [id number]) Current Condition History of Current Condition Onset Date February 2023 Current Complaints left sided shoulder pain that started in february, she does weights 8# and History of Current Condition Karla notes her pain began in February. She has a routine with 8# weights that she does including over head press. She notes she started experiencing pain with the weights, she does have pain to the elbow and sometime she will get tingling on the top of her wrist. She has had to back off her weights due to pain. At this time she has pain with any reaching and lifting over head and pain putting on and off her coat. 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 She describes severe difficulty with recreational activities such as golf or tennis. PT-OP-C Subjective Start: 06/29/23 08:07 Freq: Status: Active Protocol: Document 08/05/23 09:50 [facility] (Rec: 08/05/23 10:44 [facility] [id number]) OP-PT Subjective Patient Comments Patient Comments pt notes her shoulder is not catching as much but its still there, her neck has been really tight PT-OP-F Manual Assessment Start: 06/29/23 08:07 Freq: Status: Active Protocol: Document 06/29/23 08:15 [facility] (Rec: 06/30/23 08:25 [facility] [id number]) Manual Assessments Soft Tissue Assessment Soft Tissue Mobility Assessment tightness and guarding of the left pec minor, left upper trap, Joint Mobility Assessment Joint Mobility Assessment poor scapular thoracic mobility, decreased upward rotation of the scapula and scapula rests in a downward rotation position. Decreased posterior glides and capsule mobility PT-OP-J Posture/Palpation/Skin Start: 06/29/23 08:07 Freq: Status: Active Protocol: Document 06/29/23 08:15 [facility] (Rec: 06/30/23 08:25 [facility] [id number]) Palpation Assessment Location left supraspinatus attachment on lateral shoulder Palpation Findings Soft Tissue Tightness, Tenderness left shoulder Palpation Location left long head of the biceps tendon Palpation Findings Soft Tissue Tightness,Muscle Guarding,Tenderness PT-OP-K Range of Motion Start: 06/29/23 08:07 Freq: Status: Active Protocol: Document 06/29/23 08:14 [facility] (Rec: 06/29/23 08:30 [facility] [id number]) Shoulder Goniometric Range of Motion Shoulder Left Testing Position Supine Flexion 155 Abduction 80 External Rotation at 0 degrees Abduction 30 Internal Rotation 30 Comments increased tingling into the left hand with flexion, pain with resisited IR on the left side. Shoulder ROM Limitations Shoulder ROM Limitations Soft Tissue Tightness,Pain Comments tenderness at the biceps tendon attachment made worse with shoulder abduction and flexion PT-OP-M Strength Start: 06/29/23 08:07 Freq: Status: Active Protocol: Document 06/29/23 09:21 [facility] (Rec: 06/29/23 09:21 [facility] [id number]) Shoulder Strength Shoulder Manual Muscle Testing Left Flexion 3- Fair- Abduction (C5) 3- Fair- External Rotation 4 Good Internal Rotation 4 Good Comments pain with resisted elbow flexion and shoulder IR on the left side PT-OP-Q Treatments Start: 06/29/23 08:07 Freq: Status: Active Protocol: Document 08/05/23 09:50 [facility] (Rec: 08/05/23 10:44 [facility] [id number]) Therapeutic Exercises Supine Exercises supine AARom shoulder flexion Reps/Minutes x 20 reps Prone Exercises prone throacic extension Prone Exercise Name shoulders in ER with palms facing down Reps/Minutes x 10 reps Comments pt experienced right sided paraspinal muscle guarding today Sidelying Exercises sidelying shoulder ER Side right Equipment Used 1# 3x10 Reps/Minutes one arm at a time Standing Exercises staning wall walks Reps/Minutes x 10 reps Comments one arm at a time with cues to keep elbow in as out to the side increased p standing posterior capsule stretch Side bilateral Reps/Minutes x 2 reps Manual Therapy Treatment Soft Tissue Mobilization MFR left upper trapezius Body Location L UT, Scalene, SCM, LS, suboccipital Mobilization Type Myofascial Release Intensity/Depth Moderate Body Position Hooklying Comments pt is very tight and guarded today left upper trapezius and suboccipital manual pec minor release on the left Body Location L pec minor, pec major, bicep Mobilization Type Myofascial Release,Sustained Pressure,Other Intensity/Depth Moderate Body Position Hooklying Comments MWM sustained pressure with breath inhale, shld IR/ER Manual Techniques manual IR.ER stretches Type manual shoulder ROM Body Location left shoulder Comments pt able to go to end range of ER/IR in supine with PROM today manual scalene stretches L side Type ed self sitting- not significant stretch reported Reps/Duration self 2 reps, a Comments worked anterior, middle, and posterior scalene sidelying scapular mobilizations Type L Comments tactile cues LT and rhomboid scapular inferior glide and UR during ABD, HABD-cued slow controlled mov't, slight SA press GH Jt gapping midrange for less pinch feeling. manual posterior capsule stretch L shoulder Type left shoulder posterior capsule stretch Body Location supine Body Position Hooklying Comments manual posterior capsule stretch PT-OP-R Modalities Start: 07/06/23 11:38 Freq: Status: Active Protocol: Document 07/06/23 09:05 [facility] (Rec: 07/06/23 11:39 [facility] [id number]) Hot Pack/Cold Pack Treatment Ice Massage Location left biceps tendon and supraspinatus insertion Patient Position Supine Patient Tolerance Good PT-OP-T Assessment and Plan Start: 06/29/23 08:07 Freq: Status: Active Protocol: Document 08/05/23 09:50 [facility] (Rec: 08/05/23 10:44 [facility] [id number]) Physical Therapy Assessment Assessment Summary Assessment pt is still guarded in her upper traps, I worked on releasing the neck first. Nerve pain is down some. Karla is able to perform shoulder ER today without pain into her forearm. She gets fatigued fast with ER and wasn 't able to complete all reps with 1# weight Physical Therapy Plan Frequency and Duration Frequency of Treatment 2x/Week Duration of treatment (weeks) 8 Plan of Care Start Date 06/29/23 Plan of Care End Date 08/24/23 Therapeutic Interventions Therapeutic Interventions Home Exercise Program,Manual Therapy,Patient/Caregiver Education,Self-Care/Home Management,Soft Tissue Mobilization,Therapeutic Exercises Next Visit Focus/Plan Next Note Type Treatment Note Next Visit Plan continue to work on loosening tightness at the neck first and then progress to ther ex
--- NOTE | 2023-08-18 09:28 | PT.OTN ---
Current Diagnoses Other chronic pain (08/18/23) Pain in left shoulder (08/18/23) Stiffness of left shoulder, not elsewhere classified (08/18/23) Muscle wasting and atrophy, not elsewhere classified, left shoulder (08/18/23) Physical Therapy Treatment Note PT-OP-A Visit Information Start: 06/29/23 08:07 Freq: Status: Active Protocol: Document 08/18/23 08:15 [facility] (Rec: 08/18/23 09:03 [facility] [id number]) Out-Patient Physical Therapy Visit Information Visit Information Visit Type Treatment Note Visit Start Time 08:15 Visit Stop Time 09:00 Visit Number 6 Evaluation Information Evaluation Date 06/29/23 PT-OP-B Current Condition Start: 06/29/23 08:07 Freq: Status: Active Protocol: Document 06/29/23 08:14 [facility] (Rec: 06/29/23 08:30 [facility] [id number]) Current Condition History of Current Condition Onset Date February 2023 Current Complaints left sided shoulder pain that started in february, she does weights 8# and History of Current Condition Karla notes her pain began in February. She has a routine with 8# weights that she does including over head press. She notes she started experiencing pain with the weights, she does have pain to the elbow and sometime she will get tingling on the top of her wrist. She has had to back off her weights due to pain. At this time she has pain with any reaching and lifting over head and pain putting on and off her coat. 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 She describes severe difficulty with recreational activities such as golf or tennis. PT-OP-C Subjective Start: 06/29/23 08:07 Freq: Status: Active Protocol: Document 08/18/23 08:15 [facility] (Rec: 08/18/23 09:03 [facility] [id number]) OP-PT Subjective Patient Comments Patient Comments Karla notes her shoulder pain will be a little more angry after the first day of working on her neck. She is still noting her symptoms and hasn't been able to work on her shoulder ER exercises due to pain Patient Reported Progress Same PT-OP-F Manual Assessment Start: 06/29/23 08:07 Freq: Status: Active Protocol: Document 06/29/23 08:15 [facility] (Rec: 06/30/23 08:25 [facility] [id number]) Manual Assessments Soft Tissue Assessment Soft Tissue Mobility Assessment tightness and guarding of the left pec minor, left upper trap, Joint Mobility Assessment Joint Mobility Assessment poor scapular thoracic mobility, decreased upward rotation of the scapula and scapula rests in a downward rotation position. Decreased posterior glides and capsule mobility PT-OP-J Posture/Palpation/Skin Start: 06/29/23 08:07 Freq: Status: Active Protocol: Document 06/29/23 08:15 [facility] (Rec: 06/30/23 08:25 [facility] [id number]) Palpation Assessment Location left supraspinatus attachment on lateral shoulder Palpation Findings Soft Tissue Tightness, Tenderness left shoulder Palpation Location left long head of the biceps tendon Palpation Findings Soft Tissue Tightness,Muscle Guarding,Tenderness PT-OP-K Range of Motion Start: 06/29/23 08:07 Freq: Status: Active Protocol: Document 06/29/23 08:14 [facility] (Rec: 06/29/23 08:30 [facility] [id number]) Shoulder Goniometric Range of Motion Shoulder Left Testing Position Supine Flexion 155 Abduction 80 External Rotation at 0 degrees Abduction 30 Internal Rotation 30 Comments increased tingling into the left hand with flexion, pain with resisited IR on the left side. Shoulder ROM Limitations Shoulder ROM Limitations Soft Tissue Tightness,Pain Comments tenderness at the biceps tendon attachment made worse with shoulder abduction and flexion PT-OP-M Strength Start: 06/29/23 08:07 Freq: Status: Active Protocol: Document 06/29/23 09:21 [facility] (Rec: 06/29/23 09:21 [facility] [id number]) Shoulder Strength Shoulder Manual Muscle Testing Left Flexion 3- Fair- Abduction (C5) 3- Fair- External Rotation 4 Good Internal Rotation 4 Good Comments pain with resisted elbow flexion and shoulder IR on the left side PT-OP-Q Treatments Start: 06/29/23 08:07 Freq: Status: Active Protocol: Document 08/18/23 09:11 [facility] (Rec: 08/18/23 09:16 [facility] [id number]) Manual Therapy Treatment Soft Tissue Mobilization biceps tendon transverse friction massage Comments x 4 min at the long head of the biceps tendon MFR left upper trapezius Body Location L UT, Scalene, SCM, LS, suboccipital Mobilization Type Myofascial Release Intensity/Depth Moderate Body Position Hooklying Comments pt is very tight and guarded today left upper trapezius and suboccipital manual pec minor release on the left Body Location L pec minor, pec major, bicep Mobilization Type Myofascial Release,Sustained Pressure,Other Intensity/Depth Moderate Body Position Hooklying Comments MWM sustained pressure with breath inhale, shld IR/ER Manual Techniques manual IR.ER stretches Type manual shoulder ROM Body Location left shoulder Comments pt able to go to end range of ER/IR in supine with PROM sidelying scapular mobilizations Type L Comments tactile cues LT and rhomboid scapular inferior glide and UR during ABD, HABD-cued slow controlled mov't, slight SA press GH Jt gapping midrange for less pinch feeling. PT-OP-R Modalities Start: 07/06/23 11:38 Freq: Status: Active Protocol: Document 08/18/23 08:15 [facility] (Rec: 08/18/23 09:17 [facility] [id number]) Ultrasound Therapy Treatment left biceps tendon Patient Position Supine Coupling Medium Ultrasound Gel Applicator Size (cm2) 5 Frequency Setting (mHz) 1 Mode Setting Continuous Duty Cycle 100% Intensity Setting (w/cm2) 1.2 PT-OP-T Assessment and Plan Start: 06/29/23 08:07 Freq: Status: Active Protocol: Document 08/18/23 08:15 [facility] (Rec: 08/18/23 09:16 [facility] [id number]) Physical Therapy Assessment Goals Four Impairment Decreased strength of left shoulder IR, flexion, abduction Prison Goal (LTG) Karla presents with improved overall strength of the left shoulder testing 5/5 MMT As of 08/18/23 Karla has not been able to tolerate all of her home exercises due to continued pain, LTG Duration 8 weeks+ Three Impairment tenderness to palpation over the biceps tendon and suprapsinatus Therapist Respiratory Goal (LTG) Karla reports no tenderness to palpation over the biceps tendon and supraspinatus insertion This is improving but goal not fully met yet LTG Duration 8 weeks Two Impairment Decreased left shoulder ROM Short Term Goal (STG) Karla is educated in ROM and stabilization exercises to assist improving left shoulder ROM exercises have been prescribed however she is not tolerating all exercises due to pain STG Duration 3 weeks Therapist Respiratory Goal (LTG) Karla presents with improved shoulder ROM to WNL PROM for IR/ER improving, pain with AROM and with ROM over head LTG Duration 8 weeks One Impairment left sided shoulder pain rated 6/10 on pain scale limiting over head activies such as donning and doffing clothes. Prison Goal (LTG) Karla reports overall reduction in pain levels from 6/10 to 1-2/10 and is no longer experiencing pain with over head activities LTG Duration 8 weeks Assessment Summary Assessment Despite working on scapular mobility and working to release the muscles around the upper traps and neck Karla is still guarded and painful. She is unable to do her shoulder ER rotation exercises at home due to pain. Her PROM into IR/ER is improving however shoulder flexion overhead is still painful. She may benefit from diagnostic images for her shoulder and neck Physical Therapy Plan Frequency and Duration Frequency of Treatment 2x/Week Duration of treatment (weeks) 8 Plan of Care Start Date 08/18/23 Plan of Care End Date 10/13/23 Therapeutic Interventions Therapeutic Interventions Home Exercise Program,Manual Therapy,Patient/Caregiver Education,Self-Care/Home Management,Soft Tissue Mobilization,Therapeutic Exercises Next Visit Focus/Plan Next Note Type Treatment Note Next Visit Plan continue working on stabilization exercises as Karla can tolerate, manual release of the scapula and upper trap, pec minor. Assess how she did with ultrasound and TFM over the biceps tendon
--- NOTE | 2023-08-18 09:29 | PT.OPPOC ---
Physical, Occupational & Speech Therapy At [facility] Current Diagnoses Other chronic pain (08/18/23) Pain in left shoulder (08/18/23) Stiffness of left shoulder, not elsewhere classified (08/18/23) Muscle wasting and atrophy, not elsewhere classified, left shoulder (08/18/23) Visit Care Team Role Provider Type Nori Boone [place] Primary Care Provider Non-Staff Referring Provider Specialty: Naturopathy Address: [address] [place] [address], [id number] Email: ALY Hector Attending Provider Advanced Drilling Engineering Manager Family Provider Specialty: Family Practice Address: [address] [place] [address], [place], [address] Email: [email or web address] Plan Of Care PT-OP-T Assessment and Plan Start: 06/29/23 08:07 Freq: Status: Active Protocol: Document 08/18/23 08:15 [facility] (Rec: 08/18/23 09:16 [facility] [id number]) Physical Therapy Assessment Goals Four Impairment Decreased strength of left shoulder IR, flexion, abduction Support Group Manager Goal (LTG) Karla presents with improved overall strength of the left shoulder testing 5/5 MMT As of 08/18/23 Karla has not been able to tolerate all of her home exercises due to continued pain, LTG Duration 8 weeks+ Three Impairment tenderness to palpation over the biceps tendon and supraspinatus Support Group Manager Goal (LTG) Karla reports no tenderness to palpation over the biceps tendon and supraspinatus insertion This is improving but goal not fully met yet LTG Duration 8 weeks Two Impairment Decreased left shoulder ROM Short Term Goal (STG) Karla is educated in ROM and stabilization exercises to assist improving left shoulder ROM exercises have been prescribed however she is not tolerating all exercises due to pain STG Duration 3 weeks [facility] Goal (LTG) Karla presents with improved shoulder ROM to WNL PROM for IR/ER improving, pain with AROM and with ROM over head LTG Duration 8 weeks One Impairment left sided shoulder pain rated 6/10 on pain scale limiting over head activities such as donning and doffing clothes. Support Group Manager Goal (LTG) Karla reports overall reduction in pain levels from 6/10 to 1-2/10 and is no longer experiencing pain with over head activities LTG Duration 8 weeks Assessment Summary Assessment Despite working on scapular mobility and working to release the muscles around the upper traps and neck Karla is still guarded and painful. She is unable to do her shoulder ER rotation exercises at home due to pain. Her PROM into IR/ER is improving however shoulder flexion overhead is still painful. She may benefit from diagnostic images for her shoulder and neck. I am updating her plan of care to continue PT Physical Therapy Plan Frequency and Duration Frequency of Treatment 2x/Week Duration of treatment (weeks) 8 Plan of Care Start Date 08/18/23 Plan of Care End Date 10/13/23 Therapeutic Interventions Therapeutic Interventions Home Exercise Program,Manual Therapy,Patient/Caregiver Education,Self-Care/Home Management,Soft Tissue Mobilization,Therapeutic Exercises Next Visit Focus/Plan Next Note Type Treatment Note Next Visit Plan continue working on stabilization exercises as Karla can tolerate, manual release of the scapula and upper trap, pec minor. Assess how she did with ultrasound and TFM over the biceps tendon Plan of Care Dates Plan of Care Start Date 08/18/23 Plan of Care End Date 10/13/23 Electronically Signed by: Melody Zimmerman, PT 08/18/23 0929 If you are in agreement with this Plan of Care, please return a signed and dated copy. I have reviewed this Plan of Care and certify that the skilled therapy services above are required to meet the patient?s needs. Physician Signature Date Printed Name and Credentials Clinical Instructor Signature Printed Name and Credentials
--- NOTE | 2023-08-24 12:04 | PT-OP ANOTE ---
Karla calls in to cx as she had cyst on her ovary rupture and she is nauseated and in a great amount of pain so needed to cx today.
--- NOTE | 2023-09-02 16:29 | PT.OTN ---
Current Diagnoses Other chronic pain (09/02/23) Pain in left shoulder (09/02/23) Stiffness of left shoulder, not elsewhere classified (09/02/23) Muscle wasting and atrophy, not elsewhere classified, left shoulder (09/02/23) Physical Therapy Treatment Note PT-OP-A Visit Information Start: 06/29/23 08:07 Freq: Status: Active Protocol: Document 09/02/23 11:15 [facility] (Rec: 09/02/23 16:29 [facility] [id number]) Out-Patient Physical Therapy Visit Information Visit Information Visit Type Treatment Note Visit Start Time 11:15 Visit Stop Time 12:00 Visit Number 7 PT-OP-B Current Condition Start: 06/29/23 08:07 Freq: Status: Active Protocol: Document 06/29/23 08:14 [facility] (Rec: 06/29/23 08:30 [facility] [id number]) Current Condition History of Current Condition Onset Date February 2023 Current Complaints left sided shoulder pain that started in february, she does weights 8# and History of Current Condition Karla notes her pain began in February. She has a routine with 8# weights that she does including over head press. She notes she started experiencing pain with the weights, she does have pain to the elbow and sometime she will get tingling on the top of her wrist. She has had to back off her weights due to pain. At this time she has pain with any reaching and lifting over head and pain putting on and off her coat. 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 She describes severe difficulty with recreational activities such as golf or tennis. PT-OP-C Subjective Start: 06/29/23 08:07 Freq: Status: Active Protocol: Document 09/02/23 11:17 [facility] (Rec: 09/02/23 12:57 [facility] [id number]) OP-PT Subjective Patient Comments Patient Comments she notes her shoulder feels 50% better PT-OP-F Manual Assessment Start: 06/29/23 08:07 Freq: Status: Active Protocol: Document 06/29/23 08:15 [facility] (Rec: 06/30/23 08:25 [facility] [id number]) Manual Assessments Soft Tissue Assessment Soft Tissue Mobility Assessment tightness and guarding of the left pec minor, left upper trap, Joint Mobility Assessment Joint Mobility Assessment poor scapular thoracic mobility, decreased upward rotation of the scapula and scapula rests in a downward rotation position. Decreased posterior glides and capsule mobility PT-OP-J Posture/Palpation/Skin Start: 06/29/23 08:07 Freq: Status: Active Protocol: Document 06/29/23 08:15 [facility] (Rec: 06/30/23 08:25 [facility] [id number]) Palpation Assessment Location left supraspinatus attachment on lateral shoulder Palpation Findings Soft Tissue Tightness, Tenderness left shoulder Palpation Location left long head of the biceps tendon Palpation Findings Soft Tissue Tightness,Muscle Guarding,Tenderness PT-OP-K Range of Motion Start: 06/29/23 08:07 Freq: Status: Active Protocol: Document 06/29/23 08:14 [facility] (Rec: 06/29/23 08:30 [facility] [id number]) Shoulder Goniometric Range of Motion Shoulder Left Testing Position Supine Flexion 155 Abduction 80 External Rotation at 0 degrees Abduction 30 Internal Rotation 30 Comments increased tingling into the left hand with flexion, pain with resisited IR on the left side. Shoulder ROM Limitations Shoulder ROM Limitations Soft Tissue Tightness,Pain Comments tenderness at the biceps tendon attachment made worse with shoulder abduction and flexion PT-OP-M Strength Start: 06/29/23 08:07 Freq: Status: Active Protocol: Document 06/29/23 09:21 [facility] (Rec: 06/29/23 09:21 [facility] [id number]) Shoulder Strength Shoulder Manual Muscle Testing Left Flexion 3- Fair- Abduction (C5) 3- Fair- External Rotation 4 Good Internal Rotation 4 Good Comments pain with resisted elbow flexion and shoulder IR on the left side PT-OP-Q Treatments Start: 06/29/23 08:07 Freq: Status: Active Protocol: Document 08/18/23 09:11 [facility] (Rec: 08/18/23 09:16 [facility] [id number]) Manual Therapy Treatment Soft Tissue Mobilization biceps tendon transverse friction massage Comments x 4 min at the long head of the biceps tendon MFR left upper trapezius Body Location L UT, Scalene, SCM, LS, suboccipital Mobilization Type Myofascial Release Intensity/Depth Moderate Body Position Hooklying Comments pt is very tight and guarded today left upper trapezius and suboccipital manual pec minor release on the left Body Location L pec minor, pec major, bicep Mobilization Type Myofascial Release,Sustained Pressure,Other Intensity/Depth Moderate Body Position Hooklying Comments MWM sustained pressure with breath inhale, shld IR/ER Manual Techniques manual IR.ER stretches Type manual shoulder ROM Body Location left shoulder Comments pt able to go to end range of ER/IR in supine with PROM sidelying scapular mobilizations Type L Comments tactile cues LT and rhomboid scapular inferior glide and UR during ABD, HABD-cued slow controlled mov't, slight SA press GH Jt gapping midrange for less pinch feeling. PT-OP-R Modalities Start: 07/06/23 11:38 Freq: Status: Active Protocol: Document 08/18/23 08:15 [facility] (Rec: 08/18/23 09:17 [facility] [id number]) Ultrasound Therapy Treatment left biceps tendon Patient Position Supine Coupling Medium Ultrasound Gel Applicator Size (cm2) 5 Frequency Setting (mHz) 1 Mode Setting Continuous Duty Cycle 100% Intensity Setting (w/cm2) 1.2 PT-OP-T Assessment and Plan Start: 06/29/23 08:07 Freq: Status: Active Protocol: Document 09/02/23 11:15 [facility] (Rec: 09/02/23 16:29 [facility] [id number]) Physical Therapy Assessment Assessment Summary Assessment Karla has purchased the hook tool for her neck and I showed her how to use it today for self suboccipital release . She does seem to be doing a little better with her shoulder and is tolerating the exercises better now so next visit will increase dynamic rotator cuff strengthening Physical Therapy Plan Frequency and Duration Frequency of Treatment 2x/Week Duration of treatment (weeks) 8 Plan of Care Start Date 08/18/23 Plan of Care End Date 10/13/23 Therapeutic Interventions Therapeutic Interventions Home Exercise Program,Manual Therapy,Patient/Caregiver Education,Self-Care/Home Management,Soft Tissue Mobilization,Therapeutic Exercises Next Visit Focus/Plan Next Note Type Treatment Note Next Visit Plan progress rotator cuff stabilizing exercises for Karla next visit
--- NOTE | 2023-09-30 12:22 | PT.OTN ---
Current Diagnoses Other chronic pain (09/30/23) Pain in left shoulder (09/30/23) Stiffness of left shoulder, not elsewhere classified (09/30/23) Muscle wasting and atrophy, not elsewhere classified, left shoulder (09/30/23) Physical Therapy Treatment Note PT-OP-A Visit Information Start: 06/29/23 08:07 Freq: Status: Active Protocol: Document 09/30/23 12:19 [facility] (Rec: 09/30/23 12:22 [facility] [id number]) Out-Patient Physical Therapy Visit Information Visit Information Visit Type Treatment Note Visit Start Time 11:15 Visit Stop Time 12:00 Visit Number 8 PT-OP-B Current Condition Start: 06/29/23 08:07 Freq: Status: Active Protocol: Document 06/29/23 08:14 [facility] (Rec: 06/29/23 08:30 [facility] [id number]) Current Condition History of Current Condition Onset Date February 2023 Current Complaints left sided shoulder pain that started in february, she does weights 8# and History of Current Condition Karla notes her pain began in February. She has a routine with 8# weights that she does including over head press. She notes she started experiencing pain with the weights, she does have pain to the elbow and sometime she will get tingling on the top of her wrist. She has had to back off her weights due to pain. At this time she has pain with any reaching and lifting over head and pain putting on and off her coat. 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 She describes severe difficulty with recreational activities such as golf or tennis. PT-OP-C Subjective Start: 06/29/23 08:07 Freq: Status: Active Protocol: Document 09/30/23 11:20 [facility] (Rec: 09/30/23 11:22 [facility] [id number]) OP-PT Subjective Patient Comments Patient Comments She notes the [employer] work is helping her neck, she has been able to go back to bicep work and over head PT-OP-F Manual Assessment Start: 06/29/23 08:07 Freq: Status: Active Protocol: Document 06/29/23 08:15 [facility] (Rec: 06/30/23 08:25 [facility] [id number]) Manual Assessments Soft Tissue Assessment Soft Tissue Mobility Assessment tightness and guarding of the left pec minor, left upper trap, Joint Mobility Assessment Joint Mobility Assessment poor scapular thoracic mobility, decreased upward rotation of the scapula and scapula rests in a downward rotation position. Decreased posterior glides and capsule mobility PT-OP-J Posture/Palpation/Skin Start: 06/29/23 08:07 Freq: Status: Active Protocol: Document 06/29/23 08:15 [facility] (Rec: 06/30/23 08:25 [facility] [id number]) Palpation Assessment Location left supraspinatus attachment on lateral shoulder Palpation Findings Soft Tissue Tightness, Tenderness left shoulder Palpation Location left long head of the biceps tendon Palpation Findings Soft Tissue Tightness,Muscle Guarding,Tenderness PT-OP-K Range of Motion Start: 06/29/23 08:07 Freq: Status: Active Protocol: Document 06/29/23 08:14 [facility] (Rec: 06/29/23 08:30 [facility] [id number]) Shoulder Goniometric Range of Motion Shoulder Left Testing Position Supine Flexion 155 Abduction 80 External Rotation at 0 degrees Abduction 30 Internal Rotation 30 Comments increased tingling into the left hand with flexion, pain with resisited IR on the left side. Shoulder ROM Limitations Shoulder ROM Limitations Soft Tissue Tightness,Pain Comments tenderness at the biceps tendon attachment made worse with shoulder abduction and flexion PT-OP-M Strength Start: 06/29/23 08:07 Freq: Status: Active Protocol: Document 06/29/23 09:21 [facility] (Rec: 06/29/23 09:21 [facility] [id number]) Shoulder Strength Shoulder Manual Muscle Testing Left Flexion 3- Fair- Abduction (C5) 3- Fair- External Rotation 4 Good Internal Rotation 4 Good Comments pain with resisted elbow flexion and shoulder IR on the left side PT-OP-Q Treatments Start: 06/29/23 08:07 Freq: Status: Active Protocol: Document 09/30/23 11:23 [facility] (Rec: 09/30/23 12:19 [facility] [id number]) Manual Therapy Treatment Soft Tissue Mobilization MFR left upper trapezius Body Location L UT, Scalene, SCM, LS, suboccipital Mobilization Type Myofascial Release Intensity/Depth Moderate Body Position Hooklying Comments pt is very tight and guarded today left upper trapezius and suboccipital Nerve Glides median nerve glide Nerve B- added to HEP Body Position Sitting Reps/Duration 5 reps each Comments seated tactile cues and demo to follow, ed for head tilt best with tolerance wrist ext approx 90 deg ABD, ed painfree range elbow/wrist mobility, painfree Manual Techniques manual cervical traction Comments manual cervical traction with a towel, good tolerance suboccipital release Body Location suboccipitals Body Position Supine manual scalene stretches L side Type in supine Reps/Duration manual 2 reps each Comments worked anterior, middle, and posterior scalene PT-OP-R Modalities Start: 07/06/23 11:38 Freq: Status: Active Protocol: Document 08/18/23 08:15 [facility] (Rec: 08/18/23 09:17 [facility] [id number]) Ultrasound Therapy Treatment left biceps tendon Patient Position Supine Coupling Medium Ultrasound Gel Applicator Size (cm2) 5 Frequency Setting (mHz) 1 Mode Setting Continuous Duty Cycle 100% Intensity Setting (w/cm2) 1.2 PT-OP-T Assessment and Plan Start: 06/29/23 08:07 Freq: Status: Active Protocol: Document 09/30/23 12:19 [facility] (Rec: 09/30/23 12:22 [facility] [id number]) Physical Therapy Assessment Assessment Summary Assessment Nerve pain has calmed down and Karla has been better able to tolerate her exercises. She is still really tight in her neck and pec minor on the left but is working with her home traction unit and suboccipital release hook Physical Therapy Plan Frequency and Duration Frequency of Treatment 2x/Week Duration of treatment (weeks) 8 Plan of Care Start Date 08/18/23 Plan of Care End Date 10/13/23 Therapeutic Interventions Therapeutic Interventions Home Exercise Program,Manual Therapy,Patient/Caregiver Education,Self-Care/Home Management,Soft Tissue Mobilization,Therapeutic Exercises Next Visit Focus/Plan Next Note Type Treatment Note Next Visit Plan continue working on releasing the tightness and rewview all exercises next visit
--- NOTE | 2023-10-05 14:54 | PT.OTN ---
Current Diagnoses Other chronic pain (10/05/23) Pain in left shoulder (10/05/23) Stiffness of left shoulder, not elsewhere classified (10/05/23) Muscle wasting and atrophy, not elsewhere classified, left shoulder (10/05/23) Physical Therapy Treatment Note PT-OP-A Visit Information Start: 06/29/23 08:07 Freq: Status: Active Protocol: Document 10/05/23 10:30 [facility] (Rec: 10/05/23 17:25 [facility] [id number]) Out-Patient Physical Therapy Visit Information Visit Information Visit Type Treatment Note Visit Start Time 10:30 Visit Stop Time 11:15 Visit Number 9 PT-OP-B Current Condition Start: 06/29/23 08:07 Freq: Status: Active Protocol: Document 06/29/23 08:14 [facility] (Rec: 06/29/23 08:30 [facility] [id number]) Current Condition History of Current Condition Onset Date February 2023 Current Complaints left sided shoulder pain that started in february, she does weights 8# and History of Current Condition Karla notes her pain began in February. She has a routine with 8# weights that she does including over head press. She notes she started experiencing pain with the weights, she does have pain to the elbow and sometime she will get tingling on the top of her wrist. She has had to back off her weights due to pain. At this time she has pain with any reaching and lifting over head and pain putting on and off her coat. 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 She describes severe difficulty with recreational activities such as golf or tennis. PT-OP-C Subjective Start: 06/29/23 08:07 Freq: Status: Active Protocol: Document 10/05/23 10:30 [facility] (Rec: 10/05/23 17:25 [facility] [id number]) OP-PT Subjective Patient Comments Patient Comments karla notes she did try golfing and felt really tight in bilateral forearms following, left sided pec region feels really tight PT-OP-F Manual Assessment Start: 06/29/23 08:07 Freq: Status: Active Protocol: Document 06/29/23 08:15 [facility] (Rec: 06/30/23 08:25 [facility] [id number]) Manual Assessments Soft Tissue Assessment Soft Tissue Mobility Assessment tightness and guarding of the left pec minor, left upper trap, Joint Mobility Assessment Joint Mobility Assessment poor scapular thoracic mobility, decreased upward rotation of the scapula and scapula rests in a downward rotation position. Decreased posterior glides and capsule mobility PT-OP-J Posture/Palpation/Skin Start: 06/29/23 08:07 Freq: Status: Active Protocol: Document 06/29/23 08:15 [facility] (Rec: 06/30/23 08:25 [facility] [id number]) Palpation Assessment Location left supraspinatus attachment on lateral shoulder Palpation Findings Soft Tissue Tightness, Tenderness left shoulder Palpation Location left long head of the biceps tendon Palpation Findings Soft Tissue Tightness,Muscle Guarding,Tenderness PT-OP-K Range of Motion Start: 06/29/23 08:07 Freq: Status: Active Protocol: Document 06/29/23 08:14 [facility] (Rec: 06/29/23 08:30 [facility] [id number]) Shoulder Goniometric Range of Motion Shoulder Left Testing Position Supine Flexion 155 Abduction 80 External Rotation at 0 degrees Abduction 30 Internal Rotation 30 Comments increased tingling into the left hand with flexion, pain with resisited IR on the left side. Shoulder ROM Limitations Shoulder ROM Limitations Soft Tissue Tightness,Pain Comments tenderness at the biceps tendon attachment made worse with shoulder abduction and flexion PT-OP-M Strength Start: 06/29/23 08:07 Freq: Status: Active Protocol: Document 06/29/23 09:21 [facility] (Rec: 06/29/23 09:21 [facility] [id number]) Shoulder Strength Shoulder Manual Muscle Testing Left Flexion 3- Fair- Abduction (C5) 3- Fair- External Rotation 4 Good Internal Rotation 4 Good Comments pain with resisted elbow flexion and shoulder IR on the left side PT-OP-Q Treatments Start: 06/29/23 08:07 Freq: Status: Active Protocol: Document 10/05/23 10:30 [facility] (Rec: 10/07/23 14:53 [facility] [id number]) Therapeutic Exercises Supine Exercises foam roll stretch with AROM abduction, flexion, ER Reps/Minutes 4 min Manual Therapy Treatment Soft Tissue Mobilization MFR left upper trapezius Body Location L UT, Scalene, SCM, LS, suboccipital Mobilization Type Myofascial Release Intensity/Depth Moderate Body Position Hooklying Comments pt is very tight and guarded today left upper trapezius and suboccipital manual pec minor release on the left Body Location L pec minor, pec major, bicep Mobilization Type Myofascial Release,Sustained Pressure,Other Intensity/Depth Moderate Body Position Hooklying Comments MWM sustained pressure with breath inhale, shld IR/ER Nerve Glides median nerve glide Nerve B- added to HEP Body Position Sitting Reps/Duration 5 reps each Comments seated tactile cues and demo to follow, ed for head tilt best with tolerance wrist ext approx 90 deg ABD, ed painfree range elbow/wrist mobility, painfree Manual Techniques manual cervical traction Comments manual cervical traction with a towel, good tolerance suboccipital release Body Location suboccipitals Body Position Supine PT-OP-R Modalities Start: 07/06/23 11:38 Freq: Status: Active Protocol: Document 08/18/23 08:15 [facility] (Rec: 08/18/23 09:17 [facility] [id number]) Ultrasound Therapy Treatment left biceps tendon Patient Position Supine Coupling Medium Ultrasound Gel Applicator Size (cm2) 5 Frequency Setting (mHz) 1 Mode Setting Continuous Duty Cycle 100% Intensity Setting (w/cm2) 1.2 PT-OP-T Assessment and Plan Start: 06/29/23 08:07 Freq: Status: Active Protocol: Document 10/05/23 10:30 [facility] (Rec: 10/07/23 14:53 [facility] [id number]) Physical Therapy Assessment Assessment Summary Assessment Karla is making progress and she is feeling that she can return to her weights. She is still really tight in her left pec minor and neck and did feel forearm tightness and tension after playing golf on wednesday. Physical Therapy Plan Frequency and Duration Frequency of Treatment 2x/Week Duration of treatment (weeks) 8 Plan of Care Start Date 08/18/23 Plan of Care End Date 10/13/23 Therapeutic Interventions Therapeutic Interventions Home Exercise Program,Manual Therapy,Patient/Caregiver Education,Self-Care/Home Management,Soft Tissue Mobilization,Therapeutic Exercises Next Visit Focus/Plan Next Note Type Treatment Note Next Visit Plan continue working on releasing the left sided neck and pec minor tightness and rewview all exercises next visit
--- NOTE | 2023-10-20 12:30 | PT.OTN ---
Current Diagnoses Other chronic pain (10/19/23) Pain in left shoulder (10/19/23) Stiffness of left shoulder, not elsewhere classified (10/19/23) Muscle wasting and atrophy, not elsewhere classified, left shoulder (10/19/23) Physical Therapy Treatment Note PT-OP-A Visit Information Start: 06/29/23 08:07 Freq: Status: Active Protocol: Document 10/19/23 11:20 [facility] (Rec: 10/20/23 12:26 [facility] [id number]) Out-Patient Physical Therapy Visit Information Visit Information Visit Type Treatment Note Visit Start Time 11:20 Visit Stop Time 12:00 Visit Number 10 PT-OP-B Current Condition Start: 06/29/23 08:07 Freq: Status: Active Protocol: Document 06/29/23 08:14 [facility] (Rec: 06/29/23 08:30 [facility] [id number]) Current Condition History of Current Condition Onset Date February 2023 Current Complaints left sided shoulder pain that started in february, she does weights 8# and History of Current Condition Karla notes her pain began in February. She has a routine with 8# weights that she does including over head press. She notes she started experiencing pain with the weights, she does have pain to the elbow and sometime she will get tingling on the top of her wrist. She has had to back off her weights due to pain. At this time she has pain with any reaching and lifting over head and pain putting on and off her coat. Treatment Goals Patient/Caregiver Goals Karla's goals include decreasing pain and improving shoulder ROM Current Functional Impairments (Reported) Functional Limitations- ADL's Karla describes moderate difficulty with re examiner, carrying a shopping bag, donning and doffing a coat, and opening a tight jar. She describes severe difficulty with recreational activities such as golf or tennis. PT-OP-C Subjective Start: 06/29/23 08:07 Freq: Status: Active Protocol: Document 10/19/23 11:20 [facility] (Rec: 10/19/23 12:11 [facility] [id number]) OP-PT Subjective Patient Comments Patient Comments pt notes she has been working on stretching and 3# PT-OP-F Manual Assessment Start: 06/29/23 08:07 Freq: Status: Active Protocol: Document 06/29/23 08:15 [facility] (Rec: 06/30/23 08:25 [facility] [id number]) Manual Assessments Soft Tissue Assessment Soft Tissue Mobility Assessment tightness and guarding of the left pec minor, left upper trap, Joint Mobility Assessment Joint Mobility Assessment poor scapular thoracic mobility, decreased upward rotation of the scapula and scapula rests in a downward rotation position. Decreased posterior glides and capsule mobility PT-OP-J Posture/Palpation/Skin Start: 06/29/23 08:07 Freq: Status: Active Protocol: Document 06/29/23 08:15 [facility] (Rec: 06/30/23 08:25 [facility] [id number]) Palpation Assessment Location left supraspinatus attachment on lateral shoulder Palpation Findings Soft Tissue Tightness, Tenderness left shoulder Palpation Location left long head of the biceps tendon Palpation Findings Soft Tissue Tightness,Muscle Guarding,Tenderness PT-OP-K Range of Motion Start: 06/29/23 08:07 Freq: Status: Active Protocol: Document 06/29/23 08:14 [facility] (Rec: 06/29/23 08:30 [facility] [id number]) Shoulder Goniometric Range of Motion Shoulder Left Testing Position Supine Flexion 155 Abduction 80 External Rotation at 0 degrees Abduction 30 Internal Rotation 30 Comments increased tingling into the left hand with flexion, pain with resisited IR on the left side. Shoulder ROM Limitations Shoulder ROM Limitations Soft Tissue Tightness,Pain Comments tenderness at the biceps tendon attachment made worse with shoulder abduction and flexion PT-OP-M Strength Start: 06/29/23 08:07 Freq: Status: Active Protocol: Document 06/29/23 09:21 [facility] (Rec: 06/29/23 09:21 [facility] [id number]) Shoulder Strength Shoulder Manual Muscle Testing Left Flexion 3- Fair- Abduction (C5) 3- Fair- External Rotation 4 Good Internal Rotation 4 Good Comments pain with resisted elbow flexion and shoulder IR on the left side PT-OP-Q Treatments Start: 06/29/23 08:07 Freq: Status: Active Protocol: Document 10/19/23 11:20 [facility] (Rec: 10/19/23 17:50 [facility] [id number]) Manual Therapy Treatment Soft Tissue Mobilization MFR left upper trapezius Body Location L UT, Scalene, SCM, LS, suboccipital Mobilization Type Myofascial Release Intensity/Depth Moderate Body Position Hooklying Comments pt is very tight and guarded today left upper trapezius and suboccipital manual pec minor release on the left Body Location L pec minor, pec major, bicep Mobilization Type Myofascial Release,Sustained Pressure,Other Intensity/Depth Moderate Body Position Hooklying Comments MWM sustained pressure with breath inhale, shld IR/ER Nerve Glides ulnar nerve glides Nerve left ulnar nerve glides Reps/Duration x 10 Comments good tolerance and not as tight as median nerve glides median nerve glide Nerve B- added to HEP Body Position Supine Reps/Duration 20 reps each Comments seated tactile cues and demo to follow, ed for head tilt best with tolerance wrist ext approx 90 deg ABD, ed painfree range elbow/wrist mobility, painfree Manual Techniques suboccipital release Body Location suboccipitals Body Position Supine manual scalene stretches L side Type in supine Reps/Duration manual 2 reps each Comments worked anterior, middle, and posterior scalene PT-OP-R Modalities Start: 07/06/23 11:38 Freq: Status: Active Protocol: Document 08/18/23 08:15 [facility] (Rec: 08/18/23 09:17 [facility] [id number]) Ultrasound Therapy Treatment left biceps tendon Patient Position Supine Coupling Medium Ultrasound Gel Applicator Size (cm2) 5 Frequency Setting (mHz) 1 Mode Setting Continuous Duty Cycle 100% Intensity Setting (w/cm2) 1.2 PT-OP-T Assessment and Plan Start: 06/29/23 08:07 Freq: Status: Active Protocol: Document 10/20/23 12:27 [facility] (Rec: 10/20/23 12:30 [facility] [id number]) Physical Therapy Assessment Goals Four Impairment Decreased strength of left shoulder IR, flexion, abduction [facility] Goal (LTG) Karla presents with improved overall strength of the left shoulder testing 5/5 MMT good progress LTG Duration 8 weeks+ Three Impairment tenderness to palpation over the biceps tendon and suprapsinatus [facility] Goal (LTG) Karla reports no tenderness to palpation over the biceps tendon and supraspinatus insertion This is improving but goal not fully met yet LTG Duration 8 weeks Two Impairment Decreased left shoulder ROM Short Term Goal (STG) Karla is educated in ROM and stabilization exercises to assist improving left shoulder ROM good progress STG Duration 3 weeks [employer] Goal (LTG) Karla presents with improved shoulder ROM to WNL ROM improved for all shoulder ROM LTG Duration 8 weeks One Impairment left sided shoulder pain rated 6/10 on pain scale limiting over head activies such as donning and doffing clothes. [employer] Goal (LTG) Karla reports overall reduction in pain levels from 6/10 to 1-2/10 and is no longer experiencing pain with over head activities some progress LTG Duration 8 weeks Assessment Summary Assessment Karla is making slow progress but is still very tight in her neck and tests positive for median nerve tightness. She has been able to add back in some of her shoulder exercies without the left sided pain. I have emphasized anterior chest flexibility exercises as well as her neck stretches and she is working on these for home. Karla would benefit from continued PT Physical Therapy Plan Frequency and Duration Frequency of Treatment 1x/Week Duration of treatment (weeks) 12 Plan of Care Start Date 10/13/23 Plan of Care End Date 01/05/24 Therapeutic Interventions Therapeutic Interventions Home Exercise Program,Manual Therapy,Patient/Caregiver Education,Self-Care/Home Management,Soft Tissue Mobilization,Therapeutic Exercises Next Visit Focus/Plan Next Note Type Treatment Note Next Visit Plan continue working on releasing the left sided neck and pec minor tightness and rewview all exercises next visit
--- NOTE | 2023-10-20 12:30 | PT.OPPOC ---
Physical, Occupational & Speech Therapy At [facility] Current Diagnoses Other chronic pain (10/19/23) Pain in left shoulder (10/19/23) Stiffness of left shoulder, not elsewhere classified (10/19/23) Muscle wasting and atrophy, not elsewhere classified, left shoulder (10/19/23) Visit Care Team Role Provider Type Noir Boone [place] Primary Care Provider Non-Staff Referring Provider Specialty: Naturopathy Address: [address] [place] [address], [id number] Email: ALY Hector Attending Provider Advanced Salad Chef Family Provider Specialty: Family Practice Address: [address] [place] [address], [id number] Email: [email or web address] Plan Of Care PT-OP-T Assessment and Plan Start: 06/29/23 08:07 Freq: Status: Active Protocol: Document 10/20/23 12:27 [facility] (Rec: 10/20/23 12:30 [facility] [id number]) Physical Therapy Assessment Goals Four Impairment Decreased strength of left shoulder IR, flexion, abduction Jail Goal (LTG) Karla presents with improved overall strength of the left shoulder testing 5/5 MMT good progress LTG Duration 8 weeks+ Three Impairment tenderness to palpation over the biceps tendon and supraspinatus Jail Goal (LTG) Karla reports no tenderness to palpation over the biceps tendon and supraspinatus insertion This is improving but goal not fully met yet LTG Duration 8 weeks Two Impairment Decreased left shoulder ROM Short Term Goal (STG) Karla is educated in ROM and stabilization exercises to assist improving left shoulder ROM good progress STG Duration 3 weeks Food Safety Manager Goal (LTG) Karla presents with improved shoulder ROM to WNL ROM improved for all shoulder ROM LTG Duration 8 weeks One Impairment left sided shoulder pain rated 6/10 on pain scale limiting over head activities such as donning and doffing clothes. Jail Goal (LTG) Karla reports overall reduction in pain levels from 6/10 to 1-2/10 and is no longer experiencing pain with over head activities some progress LTG Duration 8 weeks Assessment Summary Assessment Karla is making slow progress but is still very tight in her neck and tests positive for median nerve tightness. She has been able to add back in some of her shoulder exercises without the left sided pain. I have emphasized anterior chest flexibility exercises as well as her neck stretches and she is working on these for home. Karla would benefit from continued PT Physical Therapy Plan Frequency and Duration Frequency of Treatment 1x/Week Duration of treatment (weeks) 12 Plan of Care Start Date 10/13/23 Plan of Care End Date 01/05/24 Therapeutic Interventions Therapeutic Interventions Home Exercise Program,Manual Therapy,Patient/Caregiver Education,Self-Care/Home Management,Soft Tissue Mobilization,Therapeutic Exercises Next Visit Focus/Plan Next Note Type Treatment Note Next Visit Plan continue working on releasing the left sided neck and pec minor tightness and review all exercises next visit Plan of Care Dates Plan of Care Start Date 10/13/23 Plan of Care End Date 01/05/24 Electronically Signed by: Melody Zimmerman, PT 10/20/23 [id number] If you are in agreement with this Plan of Care, please return a signed and dated copy. I have reviewed this Plan of Care and certify that the skilled therapy services above are required to meet the patient?s needs. Physician Signature Date Printed Name and Credentials Clinical Instructor Signature Printed Name and Credentials
--- NOTE | 2024-07-13 14:06 | PT.OPDS ---
Current Diagnoses Other chronic pain (10/19/23) Pain in left shoulder (10/19/23) Stiffness of left shoulder, not elsewhere classified (10/19/23) Muscle wasting and atrophy, not elsewhere classified, left shoulder (10/19/23) Visit Care Team Role Provider Type Nori Boone ND Primary Care Provider Non-Staff Referring Provider Specialty: Naturopathy Address: [address] [place] [address], [id number] Email: ALY Hector Attending Provider Advanced Crystal Inspector Family Provider Specialty: Family Practice Address: [address] [place] [address], [facility] [place], [address] Email: [email or web address] Visit Number Visit Number 10 Discharge Summary PT-OP-B Current Condition Start: 06/29/23 08:07 Freq: Status: Active Protocol: Document 06/29/23 08:14 [facility] (Rec: 06/29/23 08:30 [facility] [id number]) Current Condition History of Current Condition Onset Date February 2023 Current Complaints left sided shoulder pain that started in february, she does weights 8# and History of Current Condition Karla notes her pain began in February. She has a routine with 8# weights that she does including over head press. She notes she started experiencing pain with the weights, she does have pain to the elbow and sometime she will get tingling on the top of her wrist. She has had to back off her weights due to pain. At this time she has pain with any reaching and lifting over head and pain putting on and off her coat. 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 She describes severe difficulty with recreational activities such as golf or tennis. PT-OP-C Subjective Start: 06/29/23 08:07 Freq: Status: Active Protocol: Document 10/19/23 11:20 [facility] (Rec: 10/19/23 12:11 [facility] [id number]) OP-PT Subjective Patient Comments Patient Comments pt notes she has been working on stretching and 3# PT-OP-F Manual Assessment Start: 06/29/23 08:07 Freq: Status: Active Protocol: Document 06/29/23 08:15 [facility] (Rec: 06/30/23 08:25 [facility] [id number]) Manual Assessments Soft Tissue Assessment Soft Tissue Mobility Assessment tightness and guarding of the left pec minor, left upper trap, Joint Mobility Assessment Joint Mobility Assessment poor scapular thoracic mobility, decreased upward rotation of the scapula and scapula rests in a downward rotation position. Decreased posterior glides and capsule mobility PT-OP-J Posture/Palpation/Skin Start: 06/29/23 08:07 Freq: Status: Active Protocol: Document 06/29/23 08:15 [facility] (Rec: 06/30/23 08:25 [facility] [id number]) Palpation Assessment Location left supraspinatus attachment on lateral shoulder Palpation Findings Soft Tissue Tightness, Tenderness left shoulder Palpation Location left long head of the biceps tendon Palpation Findings Soft Tissue Tightness,Muscle Guarding,Tenderness PT-OP-K Range of Motion Start: 06/29/23 08:07 Freq: Status: Active Protocol: Document 06/29/23 08:14 [facility] (Rec: 06/29/23 08:30 [facility] [id number]) Shoulder Goniometric Range of Motion Shoulder Left Testing Position Supine Flexion 155 Abduction 80 External Rotation at 0 degrees Abduction 30 Internal Rotation 30 Comments increased tingling into the left hand with flexion, pain with resisited IR on the left side. Shoulder ROM Limitations Shoulder ROM Limitations Soft Tissue Tightness,Pain Comments tenderness at the biceps tendon attachment made worse with shoulder abduction and flexion PT-OP-M Strength Start: 06/29/23 08:07 Freq: Status: Active Protocol: Document 06/29/23 09:21 [facility] (Rec: 06/29/23 09:21 [facility] [id number]) Shoulder Strength Shoulder Manual Muscle Testing Left Flexion 3- Fair- Abduction (C5) 3- Fair- External Rotation 4 Good Internal Rotation 4 Good Comments pain with resisted elbow flexion and shoulder IR on the left side PT-OP-T Assessment and Plan Start: 06/29/23 08:07 Freq: Status: Active Protocol: Document 07/13/24 14:06 [facility] (Rec: 07/13/24 14:06 [facility] [id number]) Physical Therapy Assessment Assessment Summary Assessment Insurance had not allowed any further visits for Karla. She will be DC at this time Physical Therapy Plan Discharge Physical Therapy Discharge Reasons No Longer Attending PT Discharge Comments no further insurance coverage past allowed visits for 2023
== END 2024-07-14 10:00 | disposition home or self-care (01) ==
LOC: PHYS 11:15
PROVIDERS: Family Provider Internal Medicine; PCP Naturopath; Referring Provider Naturopath; Visit Provider Internal Medicine
DX: M25.512 Pain in left shoulder (principal); G89.29 Other chronic pain; M62.512 Muscle wasting and atrophy, not elsewhere classified, left shoulder; M25.612 Stiffness of left shoulder, not elsewhere classified
CPT/HCPCS: 97035; 97110; 97140; 97161

== ENCOUNTER → 2025-06-01 11:08 | Outpatient (CLI) | payer OTHER, SELFPAY ==
--- NOTE | 2025-06-01 | DI.RAD.S_ITS ---
PROCEDURE: XR THORACIC SPINE 3V INDICATIONS: PAIN TECHNIQUE: 3 views of the thoracic spine were acquired. COMPARISON: [facility], CR, XR CERVICAL SPINE 2V OR 3V, 06/01/2025, 12:39. FINDINGS: Bones: No fractures or dislocations. No suspicious bony lesions. 12 pairs of ribs are noted, and appear intact where visualized. Soft tissues: No paravertebral stripe thickening. IMPRESSION: Normal appearing thoracic spine plain films. Dictated by: John Rodriguez M.D. on 06/02/2025 at 12:15 Approved by: John Rodriguez M.D. on 06/02/2025 at 12:16
--- NOTE | 2025-06-01 12:31 | DI.RAD.S_ITS ---
PROCEDURE: XR CERVICAL SPINE 2V OR 3V INDICATIONS: neck and back pain TECHNIQUE: 5 views of the cervical spine were acquired, including flexion and extension views in the lateral projection. COMPARISON: [facility], , XR THORACIC SPINE 3V, 06/01/2025, 12:39. FINDINGS: Bones: No fractures or dislocations to the T1 level. The lateral masses of C1 appear intact on the odontoid view. No suspicious bony lesions. Mild disc space narrowing can be seen at C5-C6 and C6-C7. On the neutral image, there is straightening of the normal cervical lordosis.. On flexion and extension views, there is highly limited range of motion observed, without abnormal subluxation. Soft tissues: No prevertebral soft tissue swelling. IMPRESSION: Range of motion, without abnormal subluxation. Straightening of the normal cervical lordosis is seen, which is commonly observed in patients with muscular spasm. Focal lower cervical spine degenerative change. If it would be helpful for clinical management decision making, please consider a dedicated cervical spine MRI for further evaluation (assuming that there is no contraindication). Dictated by: John Rodriguez M.D. on 06/02/2025 at 12:13 Approved by: John Rodriguez M.D. on 06/02/2025 at 12:15
== END ==
PROVIDERS: Family Provider Internal Medicine; PCP Naturopath; Referring Provider Nurse Practitioner Family; Visit Provider Nurse Practitioner Family
DX: M47.812 Spondylosis without myelopathy or radiculopathy, cervical region (principal); M54.2 Cervicalgia; M54.9 Dorsalgia, unspecified; G89.29 Other chronic pain
CPT/HCPCS: 72050; 72072